=== PATIENT | female | born 1945 | race Caucasian/White ===

== ENCOUNTER 2025-06-28 09:31 | Inpatient (IN) ==
--- NOTE | 2025-06-25 11:51 | Anesthesiology Consultation ---
Date of Service June 25, 2025 Assessment & Plan (1) Encounter for pre-operative examination: - medical clearance 06/25/25: "...low risk...cleared for scheduled surgery..." - Per traffic manager on 06/21/25: No known infectious disease contacts, current infectious disease symptoms in past 10 days or COVID positive test result in the past 30 days. Chart Review Chart Review: Acceptable Risk for Surgery and Patient NOT seen in Pre Admission Testing History Surgery Operation Date: 06/28/25 10:40 Proposed Procedures p L3-S1 Decompression and Fusion - Del Abernathy DO Height/Weight Height: 5 ft 4 in Weight: 65.317 kg Allergies Allergy/AdvReac Type Severity Reaction Status Date / Time No Known Allergies Allergy Verified 06/21/25 10:40 Medications Home Medications Medication Instructions Recorded Confirmed Last Taken acetaminophen 500 mg capsule 500 mg PO BID 06/21/25 06/21/25 Unknown amlodipine 10 mg tablet 10 mg PO HS 06/21/25 06/21/25 Unknown aspirin 81 mg capsule 81 mg PO UD 06/21/25 06/21/25 Unknown baclofen 20 mg tablet 20 mg PO TID PRN Pain 06/21/25 06/21/25 Unknown celecoxib 100 mg capsule (Celebrex) 100 mg PO HS 06/21/25 06/21/25 Unknown cholecalciferol (vitamin D3) 125 125 mcg PO BID 06/21/25 06/21/25 Unknown mcg (5,000 unit) tablet (Vitamin D3) dicyclomine 10 mg capsule 10 mg PO BID PRN Abdominal 06/21/25 06/21/25 Unknown Discomfort gabapentin 100 mg tablet 100 mg PO HS 06/21/25 06/21/25 Unknown ibuprofen 800 mg tablet 800 mg PO Q8H PRN Pain 06/21/25 06/21/25 Unknown naproxen 375 mg tablet 375 mg PO BID PRN Pain 06/21/25 06/21/25 Unknown omeprazole 20 mg tablet,delayed 20 mg PO QAM 06/21/25 06/21/25 Unknown release prednisone 10 mg tablet 10 mg PO DAILY PRN Pain 06/21/25 06/21/25 Unknown zolpidem 5 mg tablet 10 mg PO HS PRN sleep 06/21/25 06/21/25 Unknown Past Medical History Medical History (Updated 06/25/25 @ 11:48 by Marie Fiore PA-C) Acid reflux well controlled Cystocele with prolapse mild prolapse History of postoperative nausea and vomiting HTN (hypertension) IBS (irritable bowel syndrome) w/ diarrhea Low back pain Neuropathy bilat feet /legs Slow to wake up after anesthesia Urinary incontinence Past Surgical History Surgical History History of carpal tunnel release of both wrists History of foot surgery right - tarsal tunnel Hx of bilateral cataract extraction Hx of colonoscopy Hx of hysterectomy Hx of parathyroidectomy removal of adenoma Social History Smoking Status: Never smoker Do You Dip or Chew Tobacco: No Hx Alcohol Use: No Hx Substance Use: No substance use type: does not use Lab Results Anesthesia Preop Results Results Anesthesia Widget: WBC 9.67 K/ul (4.8-10.8) 06/12/25 Hgb 13.4 g/dl (12.0-16.0) 06/12/25 Hct 39.0 % (37.0-47.0) 06/12/25 Plt 270 K/uL (130-400) 06/12/25 Na 141 mmol/L (136-145) 06/12/25 K 3.3 mmol/L (3.5-5.1) L 06/12/25 Cl 109 mmol/L (98-107) H 06/12/25 CO2 25 mmol/L (21-32) 06/12/25 BUN 19 mg/dl (6-23) 06/12/25 Creat 0.89 mg/dl (0.6-1.2) 06/12/25 Glucose Level 69 mg/dl (70-99(Fasting)) L 06/12/25 PT 10.6 Seconds (9.0-12.0) 06/12/25 PTT 26 Seconds (21-31) 06/12/25 INR 1.0 (0.9-1.1) 06/12/25 Urine Color Yellow 06/12/25 Urine Appearance Clear (Clear) 06/12/25 Urine pH 5.5 (4.5-7.5) 06/12/25 Urine Specific [place] 1.029 (1.000-1.030) 06/12/25 Urine Protein Trace (Negative) H 06/12/25 Urine Glucose (UA) Negative (Negative) 06/12/25 Urine Ketones Negative (Negative) 06/12/25 Urine Blood Negative (Negative) 06/12/25 Urine Nitrite Negative (Negative) 06/12/25 Urine Bilirubin Negative (Negative) 06/12/25 Urine Urobilinogen Negative (Negative) 06/12/25 Urine Leukocyte Esterase Negative (Negative) 06/12/25 Urine WBC (Auto) 0-5 /hpf (0-5) 06/12/25 Urine RBC (Auto) 0-2 /hpf (0-2) 06/12/25 Urine Hyaline Casts (Auto) 0-2 /lpf (0-2) 06/12/25 Urine Epithelial Cells (Auto) 6-10 /hpf (0-2) H 06/12/25 Urine Bacteria (Auto) None Seen (None Seen) 06/12/25 Blood Type A Positive 06/12/25 Antibody Screen NEGATIVE 06/12/25 Testing Electrocardiogram Date: 06/12/25 NSR, rate 88 bpm Chest X-Ray Date: 06/12/25 No acute findings.
[2025-06-28] MEDS ORDERED: SUGAMMADEX SODIUM 200 MG/2 ML VIAL IV ONE (10:05)
[2025-06-28] MEDS ORDERED: MIDAZOLAM HCL 1 MG/ML 2ML VIAL ONE (10:05)
[2025-06-28] MEDS ORDERED: PROPOFOL IV EMULSION 10 MG/ML 20 ML VIAL IV ONE (10:05)
[2025-06-28] MEDS ORDERED: DEXAMETHASONE SOD INJ 4 MG/ML VIAL ONE (10:05)
[2025-06-28] MEDS ORDERED: LIDOCAINE 2% 2 ML VIAL/AMP(20MG/ML) INFIL ONE (10:05)
[2025-06-28] MEDS ORDERED: ONDANSETRON INJ 2 MG/ML 2 ML VIAL ONE (10:05)
[2025-06-28] MEDS ORDERED: ROCURONIUM BROMIDE 10 MG/ML 5 ML VIAL IV ONE ×2 (10:05→12:19)
[2025-06-28] MEDS: LR 60ML/HR IV SCH (10:35)
--- NOTE | 2025-06-28 10:46 | History & Physical Bridge Note ---
Date of Service June 28, 2025 History & Physical Bridge Note I have examined the patient, reviewed the History & Physical and in the interval since the performance of the History & Physical I have noted the following changes of clinical significance: no changes noted
--- NOTE | 2025-06-28 10:46 | History & Physical Report ---
Date of Service June 28, 2025 Assessment & Plan (1) Multilevel lumbosacral spondylosis with radiculopathy: Plan: Decompression and fusion L3-L4, L4-L5 L5-S1 History of Present Illness Chief Complaint: Back and leg pain Primary Care Provider: Lenny Albert This is a 80-year-old female presents chronic persistent back and leg pain after failing course of nonoperative care she is here for surgical invention. Allergies Allergy/AdvReac Type Severity Reaction Status Date / Time No Known Allergies Allergy Verified 06/28/25 09:57 Home Medications Medication Instructions Recorded Confirmed Type acetaminophen 500 mg capsule 1,000 mg PO TID 06/21/25 06/28/25 History amlodipine 10 mg tablet 10 mg PO HS 06/21/25 06/28/25 History aspirin 81 mg capsule 81 mg PO UD 06/21/25 06/28/25 History baclofen 20 mg tablet 5 mg PO BID PRN Pain 06/21/25 06/28/25 History celecoxib 100 mg capsule (Celebrex) 100 mg PO HS 06/21/25 06/28/25 History cholecalciferol (vitamin D3) 125 125 mcg PO BID 06/21/25 06/28/25 History mcg (5,000 unit) tablet (Vitamin D3) dicyclomine 10 mg capsule 10 mg PO BID PRN Abdominal 06/21/25 06/28/25 History Discomfort gabapentin 100 mg tablet 100 mg PO HS 06/21/25 06/28/25 History ibuprofen 800 mg tablet 800 mg PO Q8H PRN Pain 06/21/25 06/28/25 History naproxen 375 mg tablet 375 mg PO BID PRN Pain 06/21/25 06/28/25 History omeprazole 20 mg tablet,delayed 20 mg PO QAM 06/21/25 06/28/25 History release prednisone 10 mg tablet 10 mg PO DAILY PRN Pain 06/21/25 06/28/25 History zolpidem 5 mg tablet (Ambien) 10 mg PO HS PRN sleep 06/21/25 06/28/25 History Past Med/Surg History Problem List (Updated 06/28/25 @ 10:46 by Del Abernathy DO) Multilevel lumbosacral spondylosis with radiculopathy Encounter for pre-operative examination Medical History Acid reflux well controlled Cystocele with prolapse mild prolapse History of postoperative nausea and vomiting HTN (hypertension) IBS (irritable bowel syndrome) w/ diarrhea Low back pain Neuropathy bilat feet /legs Slow to wake up after anesthesia Urinary incontinence Surgical History History of carpal tunnel release of both wrists History of foot surgery right - tarsal tunnel Hx of bilateral cataract extraction Hx of colonoscopy Hx of hysterectomy Hx of parathyroidectomy removal of adenoma Social History Smoking Status: Never smoker Second Hand Exposure: Yes (hx); Do You Dip or Chew Tobacco: No; Tobacco Cessation Education Requested by Patient: No Hx Alcohol Use: No Hx Substance Use: No Preferred Language: Citizen Of [place] Communication Ability: Effective Communications Tower Climber Required: No Beliefs That Will Affect Care: None Current Living Situation: Spouse Other Information That Helps Us Care for You: No Feels Safe at Home: Yes Safety Concerns: Feels Safe At This Time Assistive Devices: Denture - Lower and Glasses Assistive Devices Comment: lower partial, reading glasses Physical Exam Physical Exam: Patient is alert and oriented Heart regular rhythm Lungs clear Results & Data Results & Data Vital Signs (Past 12 Hours) Vital Signs Temp Pulse Resp BP Pulse Ox O2 Del Method 06/28/25 10:10 36.9 C 96 H 20 172/88 H 100 Room Air
[2025-06-28] MEDS: LR 15ML/HR IV SCH (10:54)
[2025-06-28] MEDS: ACETAMINOPHEN 500 MG TAB PO SCH (10:55)
[2025-06-28] MEDS: GABAPENTIN 300 MG CAP PO SCH (10:57)
[2025-06-28] MEDS: CeleBREX 200 MG CAP PO SCH (10:58)
[2025-06-28] MEDS: BUPIVACAINE/EPINEPHRINE 0.25% 1:200,000 30 ML VIAL ONE (11:46)
[2025-06-28] MEDS: ceFAZolin 330 MG/ML 1 GM VIAL ONE (13:44)
[2025-06-28] MEDS: FLOSEAL HEMOSTATIC MATRIX 10ML TOP ONE (13:44)
--- NOTE | 2025-06-28 14:07 | Operative Report ---
Post Operative Report Pre & Post Diagnosis Operation Date: 06/28/25 10:40 Pre-Op Diagnosis: #1 spondylolisthesis with radiculopathy #2 multilevel lumbar spondylosis #3 lumbar spinal stenosis Postop Diagnosis: Same I identified the patient and participated in the time-out.: Yes Procedure Operation Date: 06/28/25 10:40 Actual Procedures #1 lumbar decompression with bilateral medial facetectomies and foraminotomies L2-L3, L3-L4, L4-L5 and L5-S1. #2 posterior spinal fusion L3-S1. #3 placed to posterior segmental instrumentation L3-S1 using Emery. #4 interbody fusion L3- L4, L4-L5 and L5-S1. #5 placement of Spira 12 x 26 mm at L3-L4 and 13 x 26 mm at L4-L5 and 11 x 26 mm x 2 at L5-S1. #6 placement locally harvested morselized autograft posterior gutters. #7 placement of Proteus combined with Koros in the posterior lateral gutters and os design interbody space. #8 application of versa wrap of the exposed dura. Surgeon Del Abernathy, DO Brewmaster Amado Gómez Estimated Blood Loss 350 Findings Consistent with Post-Op Diagnosis Specimens None Indications This is a 80-year-old female who presents manage diagnosis with failed listed nonoperative care is here for surgical invention. Description of Procedure Patient was met with identified informed consent obtained. Patient was then taken to the operative suite underwent a patient placed in a prone position on Kai table atop the Tanmay frame. All bony prominences well-padded eyes inspected to ensure no external pressure placed upon them. This point the lumbar spine was prepped and draped in normal sterile fashion. Sharp dissection with the assistance of Bovie cautery from down to and exposing the lamina transverse processes of L3-L4-L5 and the sacral ala bilaterally. From a [place] 5 fashion complete laminectomy of L5 was performed including bilateral medial facetectomies and foraminotomies followed by complete laminectomy of L4 with bilateral medial facetectomies and foraminotomies. Followed by complete laminectomy of L3 with bilateral medial facetectomies and foraminotomies and lastly partial laminectomy of L2 with bilateral medial facetectomies to address all subarticular stenosis. Pedicle screws were then placed in l 3 L4-L5 and S1 levels bilaterally with assistance of fluoroscopy and the appropriately sized rods placed. Bilateral transforaminal approach on the right discectomy of L5-S1 was performed endplates. To subcortical bleeding bone and a 11 x 26 mm Spira ca ge tapped into position. He then proceeded to the left transforaminal region at L4-5 S1. Again discectomy performed. Endplates guided to subcortical bone bone and a second 11 x 26 mm Spira cage tapped into position. Then proceeded to L4- L5 level. By way the transfer approach on the left complete discectomy was performed. Endplates guided to subcortical bleeding bone and a 13 x 26 mm Spira cage tapped into position. Then proceeded to L3-L4 and by way of transforaminal approach on the left a complete discectomy was performed. Endplates guided to subcortically bone and a 12 x 26 mm Spira cage tapped in position. Please note all cages were packed with os design bone graft. Rods were then compressed locked into final position bilaterally. Cross-link was locked in position. Versa wrap placed to exposed dura. The transverse processes of L3 L4-5 and the sacral ala burred to subcortical bleeding bone. Proteus combined with Koros and locally harvested morselized or graft placed in posterolateral gutters. 15 round LANG drain inserted. The incision was then closed with 1 Vicryl the fascia 2-0 Vicryl subcutaneously and 4-0 Monocryl for final skin closure. Steri-Strips sterile dressing placed. Patient waken taken to PACU in stable condition. Please note Amado Ruffin was present at the entire procedure about the patient positioning complex portion of the surgery and final skin closure. I attest to the content of the Intraoperative Record and any orders documented therein. Any exceptions are noted below.
--- NOTE | 2025-06-28 14:25 | Fluoroscopy Report ---
FL lumbar spine 2-3V CLINICAL HISTORY: L3-S1 DECOMPRESSION AND FUSION COMPARISON STUDY: None pertinent FLUOROSCOPY TIME: 27 seconds FLUOROSCOPY IMAGES: 10 EXPOSURE DOSE: 20.95 mGy FINDINGS: Fluoroscopic guidance was provided for multilevel lumbar spine laminectomy and fusion. IMPRESSION: Please refer to the procedure report for evaluation based upon real-time fluoroscopic obs ervation. ACT 112: Negative or not required by law. Electronically signed by: Holly Kumar M.D. 06/28/2025 2:24 PM
[2025-06-28] MEDS ORDERED: DEXAMETHASONE SOD INJ 4 MG/ML VIAL IV PRN (14:31)
[2025-06-28] MEDS ORDERED: LABETALOL HCL IV 5 MG/ML 20ML IV PRN (14:31)
[2025-06-28] MEDS ORDERED: ATROPINE SULFATE 0.1 MG/ML 10ML SYR IV PRN (14:31)
[2025-06-28] MEDS: ONDANSETRON INJ 2 MG/ML 2 ML VIAL IV PRN (14:53)
[2025-06-28] MEDS: HYDROmorphone INJ 2 MG/ML SYR/VIAL IV PRN (14:56)
--- NOTE | 2025-06-28 14:57 | Anesthesiology Progress Note ---
Date of Service June 28, 2025 Anesthesia Post Procedure Vital Signs Vital Signs: Temp Pulse Pulse Resp BP Pulse Ox O2 Del Method 06/28/25 14:45 75 12 134/87 100 Room Air 06/28/25 14:35 74 14 129/68 99 Room Air 06/28/25 14:25 74 15 132/57 L 97 Room Air 06/28/25 14:16 36.0 C L 77 15 115/58 L 100 Room Air 06/28/25 10:10 36.9 C 96 H 20 172/88 H 100 Room Air Pain Intensity Lower Back: Pain Intensity: 5 Left Shoulder: Pain Intensity: 5 Transfer of Care Handoff Completed per policy Notes Mental Status: alert / awake / arousable and participated in evaluation Patient Amnestic to Procedure: Yes Nausea / Vomiting: adequately controlled Pain: adequately controlled Airway Patency, RR, SpO2: stable & adequate BP & HR: stable & adequate Hydration State: stable & adequate Anesthetic Complications: no major complications apparent and Pt Satisfied with anesthetic care
[2025-06-28] MEDS ORDERED: DICYCLOMINE HCL 10 MG CAP PO PRN (16:43)
[2025-06-28] MEDS ORDERED: ONDANSETRON INJ 2 MG/ML 2 ML VIAL IV PRN (16:43)
[2025-06-28] MEDS ORDERED: ALUMINUM/MAGNESIUM SUSP 30 ML UDC PO PRN (16:43)
[2025-06-28] MEDS ORDERED: HYDROmorphone INJ 1 MG/ML SYRINGE IV PRN (16:43)
[2025-06-28] MEDS ORDERED: FAMOTIDINE 20 MG TAB PO PRN (16:43)
[2025-06-28] MEDS ORDERED: MAGNESIUM HYDROXIDE SUSP 30 ML UDC PO PRN (16:43)
[2025-06-28] MEDS ORDERED: SOD PHOSPHATE/SOD BIPHOSPHATE ENEMA 132 ML BTL PR PRN (16:43)
[2025-06-28] MEDS ORDERED: HYDROmorphone INJ 0.5 MG/0.5 ML SYR IV PRN (16:43)
[2025-06-28] MEDS ORDERED: ONDANSETRON 4 MG OD TAB PO PRN (16:43)
[2025-06-28] MEDS ORDERED: ACETAMINOPHEN 1,000 MG/100 ML VIAL IV PRN (16:43)
[2025-06-28] MEDS ORDERED: METOCLOPRAMIDE HCL INJ 5 MG/ML 2 ML VIAL IV PRN (16:43)
[2025-06-28] MEDS ORDERED: DO NOT ADMINISTER PNEUMOCOCCAL VACCINE PRN (16:43)
[2025-06-28] MEDS ORDERED: ZOLPIDEM TARTRATE 5 MG TAB PO PRN (16:43)
[2025-06-28] MEDS ORDERED: PROMETHAZINE 12.5 MG/50.5 ML BAG IV PRN (16:43)
[2025-06-28] MEDS ORDERED: diphenhydrAMINE Capsule 25 MG CAP PO PRN (16:43)
[2025-06-28] MEDS ORDERED: NALOXONE HCL 0.4 MG/1 ML VIAL/CARP IV PRN (16:43)
[2025-06-28] MEDS ORDERED: DO NOT ADMINISTER FLU VACCINE PRN (16:43)
--- NOTE | 2025-06-28 17:47 | Consultation ---
Date of Consultation June 28, 2025 Assessment & Plan (1) Multilevel lumbosacral spondylosis with radiculopathy: Patient is a 80 year old F with a past medical history of HTN, IBS, urinary incontinence 2/2 cystocele with prolapse presenting with post-operative medical/surgical management following back surgery for spondylolisthesis with radiculopathy. Patient reports she's had bilateral foot numbness x 2 years and had right - tarsal tunnel surgery in January of this year for perceived foot problem. Failed outpatient conservative management. Multilevel lumbosacral spondylosis with radiculopathy * POD#0 s/p lumbar decompression with bilateral medial facetectomies and esther inotomies L2-S1; posterior spinal fusion L3-S1; posterior segmental instrumentation L3-S1; interbody fusion L3-S1 with Dr. Abernathy * EBL: 350 ml * Pre-op Hgb 13.4 (06/12)-> Monitor H&H with AM labs * Cefazolin x 9 doses as per Ortho ordered- transition to po antibiotics at d/c * NV checks Q4H * Per ortho for pain control- Acetaminophen, Oxy, Hydromorphone as needed * Bowel regimen with Miralax * Maintain LANG drain * Wound care per Ortho * SCD's for anticoagulation * Encourage incentive spirometry Q1H while awake * Maintain guan and d/c when able * PT/OT when appropriate- ordered #Hypertension * Continue home BP meds- amlodipine HS * Trend BP's per unit protocol DVT Ppx: Scd's Code status: Full PCP: Dr. Lenny Albert Dispo: Admit for post-op management Patient seen in collaboration with Dr. Lau. Please see addendum.I spent a total of 35 minutes coordinating, documenting and providing care for this patient excluding time spent in the performance of separately billed services or time spent by another provider/QHP. (2) Encounter for pre-operative examination: (3) HTN (hypertension): Supervising Physician Co-Signing Physician Notes Patient was seen and examined at bedside, hemodynamically stable, was somewhat nauseous, RN was getting Zofran for her. Total time spent independently: 9 minutes I have seen and examined the patient and have discussed the case with the provider above. I agree with the assessment and plan as stated. History of Present Illness Attending Physician: Del Abernathy, DO History of Present Illness Patient is a 80 year old F with a past medical history of HTN, IBS, urinary incontinence 2/2 cystocele with prolapse presenting with post-operative medical/surgical management following back surgery for spondylolisthesis with radiculopathy. Patient reports she's had bilateral foot numbness x 2 years and had right - tarsal tunnel surgery in January of this year for perceived foot problem. Failed outpatient conservative management. Denies fever, chills, weight loss, weakness, headache, cognitive changes, vision/hearing changes, chest pain, SOB, swelling, difficulty breathing, urinary concerns, pelvis numbness, skin changes. History obtained primarily from the patient and via hospitalization record. External chart review obtained from [facility] for medication rec and past medical concerns. Allergies Allergy/AdvReac Type Severity Reaction Status Date / Time No Known Allergies Allergy Verified 06/28/25 09:57 Home Medications Medication Instructions Recorded Confirmed Type acetaminophen 500 mg capsule 1,000 mg PO TID 06/21/25 06/28/25 History amlodipine 10 mg tablet 10 mg PO HS 06/21/25 06/28/25 History aspirin 81 mg capsule 81 mg PO UD 06/21/25 06/28/25 History baclofen 20 mg tablet 5 mg PO BID PRN Pain 06/21/25 06/28/25 History celecoxib 100 mg capsule (Celebrex) 100 mg PO HS 06/21/25 06/28/25 History cholecalciferol (vitamin D3) 125 125 mcg PO BID 06/21/25 06/28/25 History mcg (5,000 unit) tablet (Vitamin D3) dicyclomine 10 mg capsule 10 mg PO BID PRN Abdominal 06/21/25 06/28/25 History Discomfort gabapentin 100 mg tablet 100 mg PO HS 06/21/25 06/28/25 History ibuprofen 800 mg tablet 800 mg PO Q8H PRN Pain 06/21/25 06/28/25 History naproxen 375 mg tablet 375 mg PO BID PRN Pain 06/21/25 06/28/25 History omeprazole 20 mg tablet,delayed 20 mg PO QAM 06/21/25 06/28/25 History release prednisone 10 mg tablet 10 mg PO DAILY PRN Pain 06/21/25 06/28/25 History zolpidem 5 mg tablet (Ambien) 10 mg PO HS PRN sleep 06/21/25 06/28/25 History Patient History Medical History Acid reflux well controlled Neuropathy bilat feet /legs History of postoperative nausea and vomiting Slow to wake up after anesthesia Cystocele with prolapse mild prolapse Urinary incontinence IBS (irritable bowel syndrome) w/ diarrhea Low back pain HTN (hypertension) Surgical History Hx of bilateral cataract extraction Hx of colonoscopy History of foot surgery right - tarsal tunnel History of carpal tunnel release of both wrists Hx of parathyroidectomy removal of adenoma Hx of hysterectomy Social History Smoking Status: Never smoker Second Hand Exposure: Yes (hx); Do You Dip or Chew Tobacco: No; Tobacco Cessation Education Requested by Patient: No Hx Alcohol Use: No Hx Substance Use: No Preferred Language: [place] Communication Ability: Effective Policy And Planning Manager Required: No Beliefs That Will Affect Care: None Current Living Situation: Spouse Other Information That Helps Us Care for You: No Feels Safe at Home: Yes Safety Concerns: Feels Safe At This Time Assistive Devices: Denture - Lower and Glasses Assistive Devices Comment: lower partial, reading glasses Review of Systems Review of Systems: All systems reviewed & are unremarkable except as noted in HPI & below Physical Exam Physical Exam: VITALS: Reviewed. WEIGHT/BMI reviewed. GEN: Healthy appearing, well-developed, NAD. PSYCH: Good Judgment. AOx3. Normal memory, mood, and affect. HEENT -Head: NC/AT; -Eyes: PERRL, EOMI. No discharge or redn ess; -Ears: External ears are normal. -Nose: Normal nares. -Mouth and throat: MMM. Normal gums, muc lauryn, palate,. Good dentition. NECK: Supple, with no masses. CV: RRR, no m/r/g. LUNGS: CTAB, no w/r/c. On supplemental O2, sats stable. ABD: Soft, NT/ND, NBS, no masses or organomegaly. : Clear, yellow urine via guan SKIN: Warm, well perfused. Multiple BUE bruises MSK: No deformities, Normal gait. EXT: No clubbing, cyanosis, or edema. NEURO: CN II-XII grossly intact. No focal deficits. Sensation and motion intact BLE. Results & Data Vital Signs (Past 12 Hours) Vital Signs Temp Pulse Pulse Resp BP Pulse Ox O2 Del Method 06/28/25 16:59 36.6 C 78 16 119/69 95 Nasal Cannula 06/28/25 16:15 83 14 126/57 L 98 Nasal Cannula 06/28/25 16:00 75 13 135/52 L 96 Nasal Cannula 06/28/25 15:45 85 14 132/45 L 98 Nasal Cannula 06/28/25 15:30 81 14 128/54 L 99 Nasal Cannula 06/28/25 15:15 36.3 C L 85 13 142/60 H 98 Nasal Cannula 06/28/25 15:05 89 24 126/52 L 100 Nasal Cannula 06/28/25 14:55 75 19 136/51 L 99 Nasal Cannula 06/28/25 14:45 75 12 134/87 100 Room Air 06/28/25 14:35 74 14 129/68 99 Room Air 06/28/25 14:25 74 15 132/57 L 97 Room Air 06/28/25 14:16 36.0 C L 77 15 115/58 L 100 Room Air 06/28/25 10:10 36.9 C 96 H 20 172/88 H 100 Room Air O2 Flow Rate 06/28/25 16:59 06/28/25 16:15 2 06/28/25 16:00 2 06/28/25 15:45 2 06/28/25 15:30 2 06/28/25 15:15 2 06/28/25 15:05 2 06/28/25 14:55 2 06/28/25 14:45 06/28/25 14:35 06/28/25 14:25 06/28/25 14:16 06/28/25 10:10 Diagnostic Findings Lumbar Spine X-Ray 06/28/25 10:40 FL lumbar spine 2-3V CLINICAL HISTORY: L3-S1 DECOMPRESSION AND FUSION COMPARISON STUDY: None pertinent FLUOROSCOPY TIME: 27 seconds FLUOROSCOPY IMAGES: 10 EXPOSURE DOSE: 20.95 mGy FINDINGS: Fluoroscopic guidance was provided for multilevel lumbar spine laminectomy and fusion. IMPRESSION: Please refer to the procedure report for evaluation based upon real- time fluoroscopic observation. ACT 112: Negative or not required by law. Electronically signed by: Holly Kumar M.D. 06/28/2025 2:24 PM
[2025-06-28] MEDS: LACTATED RINGER'S 1,000 ML IV SCH (18:14)
[2025-06-28] MEDS: CHOLECALCIFEROL 125 MCG (5,000 UNITS) TAB PO SCH (20:22)
[2025-06-28] MEDS: GABAPENTIN 100 MG CAP PO SCH (21:40)
[2025-06-28] MEDS: DOCUSATE SODIUM/SENNA 50/8.6MG TAB PO SCH (21:40)
[2025-06-29] MEDS: POLYETHYLENE (MIRALAX) 17 GM PACK PO SCH (05:14)
[2025-06-29] MEDS: ACETAMINOPHEN 500 MG TAB PO PRN (05:30)
[2025-06-29 06:17] LABS: Hematocrit (blood only) 30.5 % (37.0-47.0); Hemoglobin 10.5 g/dl (12.0-16.0); Immature Granulocytes # (auto) 0.06 K/uL (0.01-0.20); Immature Granulocytes % (auto) 0.5 %; Mean Corpuscular Hemoglobin 31.6 pg (25.0-34.0); Mean Corpuscular Volume 91.9 fL (80.0-100.0); Platelet Count 244 K/uL (130-400); RDW Standard Deviation 42.4 fL (36.4-46.3); Red Blood Count 3.32 M/uL (4.20-5.40); White Blood Count 13.08 K/ul (4.8-10.8)
[2025-06-29 06:37] LABS: Anion Gap 6.0 (3-11); Blood Urea Nitrogen 15.0 mg/dl (6-23); Calcium 9.0 mg/dl (8.6-10.3); Carbon Dioxide 27.0 mmol/L (21-32); Chloride 107.0 mmol/L (98-107); Creatinine Clr Calc Pharmacy 47.1 ml/min; Glucose 114.0 mg/dl (70-99(Fasting)); Potassium 3.7 mmol/L (3.5-5.1); Sodium 140.0 mmol/L (136-145)
[2025-06-29] MEDS: ASPIRIN 81 MG ECTAB PO SCH (08:03)
[2025-06-29] MEDS: dexAMETHasone 6 MG in SYRINGE 0 ML IV SCH (08:04)
--- NOTE | 2025-06-29 08:24 | Orthopedic Progress Note ---
Date of Service June 29, 2025 Assessment & Plan (1) Multilevel lumbosacral spondylosis with radiculopathy: Plan: At this time we will continue physical therapy monitor LANG output will be discharged home in the next few days. Admission and Anticipated Discharge Date Admission Date: June 28, 2025 Subjective Patient's back pain is controlled leg symptoms improved Physical Exam Physical Exam: Patient is currently in bed. LANG drain is functioning. She has a good strength testing. Results & Data Vital Signs (Past 12 Hours) Vital Signs Temp Pulse Resp BP BP Pulse Ox O2 Del Method 06/29/25 07:11 36.4 C L 78 20 103/61 92 Room Air 06/29/25 04:14 36.3 C L 79 16 114/67 97 Room Air 06/29/25 00:10 36.7 C 75 16 112/64 98 Room Air
--- NOTE | 2025-06-29 10:51 | Hospitalist Progress Note ---
<Statement entered by Parish Rodriguez, DO - 06/30/25 07:21> I was available to AMELIE D/w AMELIE Date of Service June 29, 2025 Assessment & Plan (1) Multilevel lumbosacral spondylosis with radiculopathy: (2) Encounter for pre-operative examination: (3) HTN (hypertension): Plan Patient is a 80 year old F with a past medical history of HTN, IBS, urinary incontinence 2/2 cystocele with prolapse presenting with post-operative medical/surgical management following back surgery for spondylolisthesis with radiculopathy. Multilevel lumbosacral spondylosis with radiculopathy POD#1 s/p lumbar decompression with bilateral medial facetectomies and foraminotomies L2-S1; posterior spinal fusion L3-S1; posterior segmental instrumentation L3-S1; interbody fusion L3-S1 with Dr. Abernathy Per ortho for pain control, wound care, anticoagulation and activities WBC 13.08 today, in setting of IV Decadron. No suspicion for infection Post op blood loss anemia Hgb 10.5 today (pre-op hgb 13.4, EBL 350ml) Asymptomatic, no indication for transfusion Monitor with daily CBC while admitted Hypertension Continue home amlodipine HS DVT Ppx: SCDs Code status: Full PCP: Dr. Lenny Albert Dispo: Admitted to med/surg, dispo per primary service. Thank you for this consultation. We will follow the patient with you during their hospital stay. You can [facility] a [facility] via [employer]. Care coordinated with Dr. Rodriguez. I spent a total of 45 minutes coordinating, documenting, and providing care for this patient excluding time spent in the performance of separately billed services or time spent by another provider/QHP. Admission and Anticipated Discharge Date Admission Date: June 28, 2025 Subjective Seen and examined in 309 in follow-up of lumbar decompression surgery. Patient sitting in bedside chair chatting with her . States she was nauseous overnight and had emesis x 1 with immediate relief afterwards. Has had some nausea in setting of general anesthesia in the past. Back pain is minimal at surgical site. Still with chronic paresthesias in lower extremity, unchanged from previous. No postop flatus yet. No fever, chills, chest pain, shortness of breath, nausea, vomiting, abdominal pain, dysuria. Review of Systems Review of Systems: At least ten systems reviewed and negative except as noted in the HPI. Physical Exam Physical Exam: Gen: WD/WN, NAD, sitting in bedside chair, A&Ox3 HEENT: Normocephalic, atraumatic Lung: Clear to Auscultation bilaterally Heart: Regular rate, regular rhythm Abdomen: Soft, NT, ND Extremities: + Spinal dressing c/d/i, LANG drain visualized, no edema Skin: Warm, no rash Results & Data Results & Data Vital Signs (Past 12 Hours) Vital Signs Temp Pulse Resp BP BP Pulse Ox O2 Del Method 06/29/25 07:11 36.4 C L 78 20 103/61 92 Room Air 06/29/25 04:14 36.3 C L 79 16 114/67 97 Room Air 06/29/25 00:10 36.7 C 75 16 112/64 98 Room Air Laboratory Results Short CBC 06/29/25 Range/Units 05:48 WBC 13.08 H (4.8-10.8) K/ul Hgb 10.5 L (12.0-16.0) g/dl Hct 30.5 L (37.0-47.0) % Plt Count 244 (130-400) K/uL BMP 06/29/25 05:48 Sodium 140 Potassium 3.7 Chloride 107 Carbon Dioxide 27 BUN 15 Creatinine 0.91 Glucose 114 H Calcium 9.0 Diagnostic Findings Lumbar Spine X-Ray 06/28/25 10:40 FL lumbar spine 2-3V CLINICAL HISTORY: L3-S1 DECOMPRESSION AND FUSION COMPARISON STUDY: None pertinent FLUOROSCOPY TIME: 27 seconds FLUOROSCOPY IMAGES: 10 EXPOSURE DOSE: 20.95 mGy FINDINGS: Fluoroscopic guidance was provided for multilevel lumbar spine laminectomy and fusion. IMPRESSION: Please refer to the procedure report for evaluation based upon real-time fluoroscopic observation. ACT 112: Negative or not required by law. Electronically signed by: Holly Kumar M.D. 06/28/2025 2:24 PM
[2025-06-30 06:26] LABS: Hematocrit (blood only) 28.1 % (37.0-47.0); Hemoglobin 9.6 g/dl (12.0-16.0); Mean Corpuscular Hemoglobin 31.8 pg (25.0-34.0); Mean Corpuscular Volume 93.0 fL (80.0-100.0); Platelet Count 163 K/uL (130-400); RDW Standard Deviation 44.3 fL (36.4-46.3); Red Blood Count 3.02 M/uL (4.20-5.40); White Blood Count 12.47 K/ul (4.8-10.8)
[2025-06-30 06:50] LABS: Anion Gap 7.0 (3-11); Blood Urea Nitrogen 20.0 mg/dl (6-23); Calcium 9.0 mg/dl (8.6-10.3); Carbon Dioxide 27.0 mmol/L (21-32); Chloride 108.0 mmol/L (98-107); Creatinine Clr Calc Pharmacy 53.5 ml/min; Glucose 97.0 mg/dl (70-99(Fasting)); Potassium 3.5 mmol/L (3.5-5.1); Sodium 142.0 mmol/L (136-145)
--- NOTE | 2025-06-30 07:46 | Hospitalist Progress Note ---
<Statement entered by Parish Rodriguez, DO - 06/30/25 13:50> I was available to AMELIE Discussed plan with AMELIE Date of Service June 30, 2025 Assessment & Plan (1) Multilevel lumbosacral spondylosis with radiculopathy: (2) Encounter for pre-operative examination: (3) HTN (hypertension): Plan Patient is a 80 year old F with a past medical history of HTN, IBS, urinary incontinence 2/2 cystocele with prolapse presenting with post-operative medical/surgical management following back surgery for spondylolisthesis with radiculopathy. Multilevel lumbosacral spondylosis with radiculopathy POD#2 s/p lumbar decompression with bilateral medial facetectomies and foraminotomies L2-S1; posterior spinal fusion L3-S1; posterior segmental instrumentation L3-S1; interbody fusion L3-S1 with Dr. Abernathy Per ortho for pain control, wound care, anticoagulation and activities WBC 13.08 -> 12.4, in setting of IV Decadron. No suspicion for infection Post op blood loss anemia Hgb 9.6 today, (pre-op hgb 13.4, EBL 350ml) Asymptomatic, no indication for transfusion Monitor with daily CBC while admitted Hypertension Continue home amlodipine HS DVT Ppx: SCDs Code status: Full PCP: Dr. Lenny Albert Dispo: Admitted to med/surg, dispo per primary service. Thank you for this consultation. We will follow the patient with you during their hospital stay. You can reach a member of the [facility]ist Team 16/05 via [employer]. Care coordinated with Dr. Rodriguez. I spent a total of 30 minutes coordinating, documenting, and providing care for this patient excluding time spent in the performance of separately billed services or time spent by another provider/QHP. Admission and Anticipated Discharge Date Admission Date: June 28, 2025 Subjective Seen and examined in 309-1. More discomfort today but has improved since getting out of bed into chair. Passing flatus. No F/C, CP, SOB, abd pain, dysuria. Review of Systems Review of Systems: At least ten systems reviewed and negative except as noted in the HPI. Physical Exam Physical Exam: Gen: WD/WN, NAD, sitting in bedside chair, A&Ox3 HEENT: Normocephalic, atraumatic Lung: Clear to Auscultation bilaterally Heart: Regular rate, regular rhythm Abdomen: Soft, NT, ND Extremities: + Spinal dressing c/d/i, LANG drain visualized, no edema Skin: Warm, no rash Results & Data Results & Data Vital Signs (Past 12 Hours) Vital Signs Temp Pulse Pulse Resp BP BP Pulse Ox 06/30/25 07:30 36.4 C L 77 18 111/63 97 06/30/25 00:25 36.5 C 73 20 130/72 96 06/29/25 21:11 88 16 136/71 95 O2 Del Method 06/30/25 07:30 Room Air 06/30/25 00:25 Room Air 06/29/25 21:11 Room Air Laboratory Results Short CBC 06/30/25 Range/Units 05:43 WBC 12.47 H (4.8-10.8) K/ul Hgb 9.6 L (12.0-16.0) g/dl Hct 28.1 L (37.0-47.0) % Plt Count 163 (130-400) K/uL BMP 06/30/25 05:43 Sodium 142 Potassium 3.5 Chloride 108 H Carbon Dioxide 27 BUN 20 Creatinine 0.80 Glucose 97 Calcium 9.0 Diagnostic Findings Lumbar Spine X-Ray 06/28/25 10:40 FL lumbar spine 2-3V CLINICAL HISTORY: L3-S1 DECOMPRESSION AND FUSION COMPARISON STUDY: None pertinent FLUOROSCOPY TIME: 27 seconds FLUOROSCOPY IMAGES: 10 EXPOSURE DOSE: 20.95 mGy FINDINGS: Fluoroscopic guidance was provided for multilevel lumbar spine laminectomy and fusion. IMPRESSION: Please refer to the procedure report for evaluation based upon real- time fluoroscopic observation. ACT 112: Negative or not required by law. Electronically signed by: Holly Kumar M.D. 06/28/2025 2:24 PM
[2025-06-30] MEDS: LORazepam 0.5 MG TAB PO PRN (07:54)
--- NOTE | 2025-06-30 10:24 | Orthopedic Progress Note ---
Date of Service June 30, 2025 Assessment & Plan (1) Multilevel lumbosacral spondylosis with radiculopathy: Plan: At this time we will continue physical therapy monitor her LANG output. She has history of vaginitis secondary to long-term antibiotics and would like a Diflucan treatment today. Most likely discharge tomorrow pending her progress today. Admission and Anticipated Discharge Date Admission Date: June 28, 2025 Subjective Patient's back pain is controlled leg symptoms improved Physical Exam Physical Exam: Patient is in the chair at the bedside. Has good strength testing. Is comfortable. Results & Data Vital Signs (Past 12 Hours) Vital Signs Temp Pulse Pulse Resp BP BP Pulse Ox 06/30/25 07:30 36.4 C L 77 18 111/63 97 06/30/25 00:25 36.5 C 73 20 130/72 96 O2 Del Method 06/30/25 07:30 Room Air 06/30/25 00:25 Room Air Queries Orthopedic Spine Acute Posthemorrhagic Anemia: Yes
[2025-06-30] MEDS: FLUCONAZOLE 100 MG TAB PO SCH (11:58)
[2025-06-30] MEDS: FLUCONAZOLE 50 MG TAB PO ONE (13:16)
[2025-06-30 15:03] VITALS: RESP 16
[2025-06-30 23:55] VITALS: TEMP 97.9
[2025-07-01 06:26] LABS: Hematocrit (blood only) 28.3 % (37.0-47.0); Hemoglobin 9.8 g/dl (12.0-16.0); Mean Corpuscular Hemoglobin 31.9 pg (25.0-34.0); Mean Corpuscular Volume 92.2 fL (80.0-100.0); Platelet Count 221 K/uL (130-400); RDW Standard Deviation 44.4 fL (36.4-46.3); Red Blood Count 3.07 M/uL (4.20-5.40); White Blood Count 10.44 K/ul (4.8-10.8)
[2025-07-01 06:52] LABS: Anion Gap 6.0 (3-11); Blood Urea Nitrogen 24.0 mg/dl (6-23); Calcium 9.4 mg/dl (8.6-10.3); Carbon Dioxide 29.0 mmol/L (21-32); Chloride 105.0 mmol/L (98-107); Creatinine Clr Calc Pharmacy 45.1 ml/min; Glucose 104.0 mg/dl (70-99(Fasting)); Potassium 3.9 mmol/L (3.5-5.1); Sodium 140.0 mmol/L (136-145)
[2025-07-01 07:51] VITALS: BP 130/75; PULSE 76; O2SAT 100
--- NOTE | 2025-07-01 10:25 | Discharge Summary ---
Date of Service July 01, 2025 Admission HPI Per Admitting Provider This is a 80-year-old female presents chronic persistent back and leg pain after failing course of nonoperative care she is here for surgical invention. Principal Diagnosis Lumbar spondylosis with radiculopathy Discharge Data Allergies Allergy/AdvReac Type Severity Reaction Status Date / Time No Known Allergies Allergy Verified 06/28/25 09:57 Consultations 06/28/25 16:43 Consult Hospitalist Routine Procedures Performed Operation Date: 06/28/25 10:40 Actual Procedures p L3-S1 Decompression and Fusion(Not Applicable) - Del Abernathy DO Ordered Studies 06/28/25 10:40 FL lumbar spine 2-3V Routine Hospital Course (1) Multilevel lumbosacral spondylosis with radiculopathy: Patient went multilevel lumbar decompression fusion trial as well as taken orthopedic for postoperative. Post ablation progressed appropriately marked improvement of her leg symptoms. Excellent strength testing. LANG drain decreasing appropriately. Pain well-controlled. Subsidy discharged home. Discharge orders instructions from the chart for further review. Total Time Total Time Spent Total Time Spent (In Minutes): 20 minutes Discharge Plan Discharge Items Patient Disposition: Home - Self-Care Reason For Visit: Spondylolisthesis Lumbar Region Foraminal Stenosis Discharge Diagnosis: Lumbar spondylosis with radiculopathy Activity: As commented below Non-emergency contact: Primary Care Provider Call non-emergency contact if: you have any medication questions Follow-up/Referrals: Lenny Albert D.O. [Primary Care Provider] - Diet: Regular Addtl Attending Provider Instructions: ACTIVITY RECOMMENDATIONS: SELF CARE INSTRUCTIONS AFTER THORACIC/LUMBAR FUSIONS 1. You may walk to your tolerance. It is good exercise for your legs and back. Expect some back and intermittent leg aches and pains. 2. You may perform "counter-top" level activities (make a sandwich, sandrita with a project, etc.). 3. No bending or lifting of more than 10 pounds or back twisting of any nature (roll like a log when turning in bed). 4. You may ride in a car for 20-30 minutes at a time. No driving until after your first visit with your doctor. 5. Frequent changes of position and restricting sitting to 30 minutes at a time will help limit the amount of back spasms and stiffness you may experience. 6. You may discontinue the use of ambulatory aids (cane, crutches, etc.) once your strength and confidence allow. 7. You may manufacturing production manager the shower and let water strike your incision when you arrive home at least once daily. Do not take a tub bath, sit in a hot tub or go into a swimming pool until after your first recheck in the office. 8. You may resume previous diet. SPECIAL CARE INSTRUCTIONS: VERY IMPORTANT TO READ AND REVIEW A. Your surgical incision has been closed with a cosmetic suture under the skin that will dissolve in about 6 weeks. In 14 days, you can use a pair of clean scissors and cut the suture that is left outside of the skin at the ends of your incision. 1. The small skin tapes can be removed 7 days after surgery if they have not fallen off by that point. 2. You may keep the wound open to air as much as possible to promote healing after post-op day number 5 unless told otherwise by your doctor. 3. If you think the wound looks like it is becoming infected (redness or worsening drainage) and/or you are experiencing fever, chill or worsening back pain and muscle spasms, contact the office so that we may evaluate you as soon as possible. B. Complications are uncommon, but please contact us if you have any signs or symptoms of: 1. wound infection (fever higher than 102.5 degrees F, redness, separation of wound, drainage, or increasing pain from the incision) 2. blood clots in legs (pain, swelling, redness and warmth in legs) 3. urinary tract infection (fever higher than 102.5 degrees F, burning upon urination or increased frequency of urination) 4. nerve problems (inability to walk on your toes or heels, numbness, loss of bowel or bladder control) 5. any other symptoms that concern you C. Please call the office at if you have any concerns or questions about your operation or recovery. D. No smoking! Smoking drastically decreases the chance of a solid fusion. E. Do not take any anti-inflammatory medications (Indocin, Advil, Motrin, Aspirin, Naprosyn, etc.) as these may inhibit the chance of a solid fusion. Tylenol is okay to take for pain. MANAGING PAIN AFTER SPINAL SURGERY 1. Narcotic medication is intended for short-term use and will be provided for surgical pain. Surgical pain usually lasts for a period of 4-6 weeks. Narcotic medication includes Percocet, Vicodin, Darvocet, Tylenol #3 or Lortab. 2. Longer-term pain is more appropriately treated with non-narcotic medication such as Tylenol ES. 3. Muscle spasm is not appropriately treated with narcotics. Muscle relaxers such as Soma, Flexeril or Skelaxin can be used along with Tylenol ES. 4. Remember that we all live with some "aches and pains". This is not unusual or uncommon after an injury or as we get older. a. Back pain is expected and may include muscle spasms for 4 to 6 weeks after surgery. The pain should gradually improve. If the pain worsens for no apparent reason, please contact the office. b. Intermittent leg pain may also be experienced and should not be concerned about unless it worsens for no apparent reason. If so, please contact the office. 5. We will provide appropriate medication within the normal guidelines of their prescribed use. We will also be very cautious and aware of potential abuse and extended duration of patients' medication needs. a. Pain medications are for your comfort and to assist with sleep and rest so that the tissue can heal. They are not provided in order to return to normal activity and should not be used through the day. To do so or worsening pain at night can result from ongoing tissue damage and development of tolerance to the prescribed medicine. 6. Please allow 2-3 days to process refills. Prescriptions will not be mailed but must be picked up at the office. FOLLOW UP VISIT: Keep your scheduled follow-up appointment. Any questions, please call the office at . Pending Studies at Discharge: No Stand-Alone Forms: [facility], Smoking Cessation Medications and DC Order Prescriptions: New tramadol 50 mg tablet 50 mg PO Q6H PRN (Reason: pain, moderate) Qty: 30 0RF oxycodone-acetaminophen [Percocet] 5-325 mg tablet 1 tab PO Q8H Qty: 30 0RF Rx Instructions: Oxycodone for severe pain tramadol for moderate pain cyclobenzaprine 10 mg Tablet 5 mg PO Q8 PRN (Reason: muscle spasm) Qty: 20 0RF Continued prednisone 10 mg Tablet 10 mg PO DAILY PRN (Reason: Pain) baclofen 20 mg Tablet 5 mg PO BID PRN (Reason: Pain) amlodipine 10 mg Tablet 10 mg PO HS zolpidem [Ambien] 5 mg Tablet 10 mg PO HS PRN (Reason: sleep ) celecoxib [Celebrex] 100 mg Capsule 100 mg PO HS acetaminophen 500 mg Capsule 1,000 mg PO TID dicyclomine [Bentyl] 10 mg Capsule 10 mg PO BID PRN (Reason: Abdominal Discomfort) gabapentin 100 mg Tablet 100 mg PO HS omeprazole 20 mg Tablet,Delayed Release (Dr/Ec) 20 mg PO QAM cholecalciferol (vitamin D3) [Vitamin D3] 125 mcg (5,000 unit) Tablet 125 mcg PO BID aspirin 81 mg Capsule 81 mg PO UD Patient Comments: three times per week Discontinued naproxen [Naprosyn] 375 mg Tablet 375 mg PO BID PRN (Reason: Pain) ibuprofen 800 mg Tablet 800 mg PO Q8H PRN (Reason: Pain) Discharge Orders: Discharge Order (Routine); Ordered 07/01/25 Ordered By: Del Abernathy Admission Data Admit Date/Time: 06/28/25 14:10 Attending Provider: Del Abernathy Admit Provider: Del Abernathy Primary Care Provider: Lenny Albert Other Providers: Flora Wilson; Lorrie Morocho
[2025-07-01] MEDS: CYCLOBENZAPRINE HCL 5 MG TAB PO SCH (10:51)
--- NOTE | 2025-07-01 12:06 | Hospitalist Progress Note ---
Date of Service July 01, 2025 Assessment & Plan (1) Multilevel lumbosacral spondylosis with radiculopathy: (2) Encounter for pre-operative examination: (3) HTN (hypertension): Plan Patient is a 80 year old F with a past medical history of HTN, IBS, urinary incontinence 2/2 cystocele with prolapse presenting with post-operative medical/surgical management following back surgery for spondylolisthesis with radiculopathy. Multilevel lumbosacral spondylosis with radiculopathy POD#2 s/p lumbar decompression with bilateral medial facetectomies and foraminotomies L2-S1; posterior spinal fusion L3-S1; posterior segmental instrumentation L3-S1; interbody fusion L3-S1 with Dr. Abernathy Per ortho for pain control, wound care, anticoagulation and activities WBC 13.08 -> 12.4, in setting of IV Decadron. No suspicion for infection For DC today. No BM yet but passing gas and eating without issue Advised to take miralax at home No medical issue with discharging home today Post op blood loss anemia stable no s/s acute blood loss Hypertension Continue home amlodipine HS DVT Ppx: SCDs Code status: Full PCP: Dr. Lenny Albert Dispo: Admitted to med/surg, dispo per primary service. I spent a total of 28 minutes coordinating, documenting, and providing care for this patient excluding time spent in the performance of separately billed services. This included personally reviewing all current laboratories and imaging studies, medical reconciliation, outpatient chart review and discussion with specialists Admission and Anticipated Discharge Date Admission Date: June 28, 2025 Subjective Feeling well today. she is very eager to go home today. Patient denies F/C, CP, palpitations, SOB, dyspnea, abd pain, N/V/D. no BM yet but passing gas and eating without difficulty. Physical Exam Physical Exam: Vitals and labs reviewed General: Well appearing, NAD HEENT: EOMI Neck: Supple Lungs: No distress Abd: ND MSK: Full ROM. No obvious deformities Ext: No Edema cyanosis Skin: Warm, Dry Neuro: AOx3 No focal deficits. Psych: Normal Mood Results & Data Results & Data Vital Signs (Past 12 Hours) Vital Signs Temp Pulse Resp BP Pulse Ox O2 Del Method 07/01/25 07:58 36.6 C 07/01/25 07:50 76 16 130/75 100 Room Air
== END 2025-07-01 12:20 | disposition home or self-care (01) | DRG 427 ==
LOC: ASU 09:31 → PACUINP 14:10 → 3E 16:42

== ENCOUNTER 2025-07-11 13:41 | Inpatient (IN) ==
[2025-07-11] MEDS: ACETAMINOPHEN 1,000 MG/100 ML VIAL IV STA (14:19)
[2025-07-11] MEDS: LIDOCAINE 5% 1 PATCH TD STA (14:19)
[2025-07-11] MEDS: KETOROLAC TROMETHAMINE 15 MG/ML VIAL IV ONE (14:20)
[2025-07-11 14:26] LABS: Hematocrit (blood only) 32.2 % (37.0-47.0); Hemoglobin 10.3 g/dl (12.0-16.0); Immature Granulocytes # (auto) 0.07 K/uL (0.01-0.20); Immature Granulocytes % (auto) 0.6 %; Mean Corpuscular Hemoglobin 29.7 pg (25.0-34.0); Mean Corpuscular Volume 92.8 fL (80.0-100.0); Platelet Count 293 K/uL (130-400); RDW Standard Deviation 43.8 fL (36.4-46.3); Red Blood Count 3.47 M/uL (4.20-5.40); White Blood Count 12.33 K/ul (4.8-10.8)
[2025-07-11 14:43] LABS: Alanine Aminotransferase 3 U/L (7-52); Albumin Globulin Ratio 1.4 (0.9-2); Albumin Level 3.7 gm/dl (3.4-5.0); Alkaline Phosphatase 125 U/L (34-104); Anion Gap 5 (3-11); Bilirubin,Total 0.7 mg/dl (0.2-1.0); Blood Urea Nitrogen 21 mg/dl (6-23); Calcium 9.6 mg/dl (8.6-10.3); Carbon Dioxide 29 mmol/L (21-32); Chloride 104 mmol/L (98-107); Globulin 2.7 gm/dl (2.5-4.0); Glucose 114 mg/dl (70-99(Fasting)); Potassium 4.1 mmol/L (3.5-5.1); Sodium 138 mmol/L (136-145); Total Protein 6.4 gm/dl (6.0-8.3)
[2025-07-11 14:51] LABS: INR 1.0 (0.9-1.1); Prothrombin Time 10.5 Seconds (9.0-12.0)
--- NOTE | 2025-07-11 14:58 | Emergency Department Note ---
Impression & Plan Low back pain, History of lumbar surgery ED Provider Note ED Provider Note NAME: ALEXIS CABALLERO AGE:80 SEX: Female : 1945 ARRIVES VIA: private vehicle INFORMANT: Patient ED PROVIDER(s): Anne-Marie Guerrero DO CHIEF COMPLAINT: persistent low back pain HPI: This is a 80-year-old female who presents to the emergency department due to concern for persistent low back pain following back surgery with Dr. Abernathy 3 weeks ago. She states she has been taking the postop medication she was prescribed. She denies any falls or injury. She states she does not feel as though the pain has been improving at all and has begun to limit any attempts to rehab and get back to normal activities. She denies fevers, chills, discharge or drainage from the wound, abdominal pain, urinary or fecal incontinence, or saddle anesthesia. PAST MEDICAL HISTORY:See Below PAST SURGICAL HISTORY:See Below FAMILY HISTORY:See Below SOCIAL HISTORY:See Below HOME MEDICATIONS:See Below ALLERGIES:See Below VITALS:See Below PHYSICAL EXAMINATION: GENERAL: alert, comfortable appearing, well nourished, mild distress, non-toxic EYE EXAM: normal conjunctiva, PERRL and EOM's grossly intact OROPHARYNX: no exudate, no erythema, lips, buccal mucosa, and tongue normal and mucous membranes are moist NECK: supple, no nuchal rigidity, no adenopathy, non-tender LUNGS: Clear to auscultation. Normal chest wall mechanics, no w/r/r HEART: no murmurs, S1 normal and S2 normal ABDOMEN: abdomen soft, non-tender, normo-active bowel sounds, no masses, no rebound or guarding. BACK: Back is symmetrical on inspection and there is no deformity, no CVA tenderness. Well-appearing healing vertical midline lumbar incision, no dehiscence, no drainage, no surrounding erythema, no crepitus SKIN: no rashes, petechiae, orbruising UPPER EXTREMITIES: upper extremities are grossly normal. FROM, nml pulses b/l. LOWER EXTREMITIES: No pitting edema. FROM, nml pulses b/l. NEURO EXAM: Normal sensorium, cranial nerves II-XII grossly intact, normal speech, no facial droop,nogross weakness of arms, no gross weakness of legs. Gross sensation intact. No ataxia. Vital Signs: reviewed and remarkable Differential Diagnosis: Postop seroma, postop hematoma, abscess, hardware infection, osteomyelitis, epidural abscess, epidural hematoma, occult fracture, as well as others were considered MEDICAL DECISION MAKING: This is a 80-year-old female who is 3 weeks postop from a spine surgery with Dr. Abernathy who presents due to persistent low back pain without improvement despite home medications including muscle relaxers, narcotics, and recent steroid course. Wound was well-appearing. Patient had pain with any attempts at movement or ambulation. Labs drawn and sent, IV established, patient monitored on telemetry. Patient declined IV pain medication. She was given IV Tylenol and IV Toradol. Labs reassuring. I suspect mild leukocytosis more likely related to recent completion of a Medrol Dosepak and less likely from evolving infection. Case discussed with Dr. Abernathy who knows the patient well and will admit to his service. He did request an order for an MRI of the lumbar spine be placed. This was added per his request and he will follow-up the results. Consultation(s): 1455: Discussed with Dr. Abernathy, orthospine. He will admit to his service. Would like MRI without contrast of lumbar spine ordered. ER Treatment Provided: See below Diagnostics Interpreted By Me: -Cardiac Monitoring: An order was placed for continuous cardiac monitoring. The monitor shows a rate of 92 with normal sinus rhythm. -Laboratory studies: As stated above and show below. Triage Nursing Note Reviewed Prior/Outside Records Reviewed Past Med/Surg History Problem List (Updated 07/12/25 @ 14:43 by ARMINDA Villalobos) E. coli UTI Lumbar radiculopathy History of lumbar surgery (Acute) Low back pain (Acute) Multilevel lumbosacral spondylosis with radiculopathy Encounter for pre-operative examination Medical History Acid reflux well controlled Neuropathy bilat feet /legs History of postoperative nausea and vomiting Slow to wake up after anesthesia Cystocele with prolapse mild prolapse Urinary incontinence IBS (irritable bowel syndrome) w/ diarrhea Low back pain HTN (hypertension) Surgical History Hx of bilateral cataract extraction Hx of colonoscopy History of foot surgery right - tarsal tunnel History of carpal tunnel release of both wrists Hx of parathyroidectomy removal of adenoma Hx of hysterectomy Social History Smoking Status: Never smoker Second Hand Exposure: Yes; Do You Dip or Chew Tobacco: No; Hx Alcohol Use: No Hx Substance Use: No Preferred Language: Malay Communication Ability: Effective Tele Rn Required: No Beliefs That Will Affect Care: None Current Living Situation: Spouse Other Information That Helps Us Care for You: No Feels Safe at Home: Yes Safety Concerns: Feels Safe At This Time Assistive Devices: Walker Allergies Allergies Allergy/AdvReac Type Severity Reaction Status Date / Time No Known Allergies Allergy Verified 07/11/25 15:19 Home Meds Home Medications Medication Instructions Recorded Confirmed acetaminophen 500 mg capsule 1,000 mg PO TID PRN Pain 06/21/25 07/11/25 amlodipine 10 mg tablet 10 mg PO HS 06/21/25 07/11/25 aspirin 81 mg capsule 81 mg PO [id number] 06/21/25 07/11/25 baclofen 20 mg tablet 5 mg PO BID PRN Pain 06/21/25 07/11/25 celecoxib 100 mg capsule (Celebrex) 100 mg PO HS 06/21/25 07/11/25 cholecalciferol (vitamin D3) 125 125 mcg PO BID 06/21/25 07/11/25 mcg (5,000 unit) tablet (Vitamin D3) dicyclomine 10 mg capsule 10 mg PO BID PRN Abdominal 06/21/25 07/11/25 Discomfort gabapentin 100 mg tablet 100 mg PO HS 06/21/25 07/11/25 ibuprofen 800 mg tablet 800 mg PO Q8H PRN Pain 06/21/25 07/11/25 naproxen 375 mg tablet 375 mg PO BID PRN Pain 06/21/25 07/11/25 omeprazole 20 mg tablet,delayed 20 mg PO QAM 06/21/25 07/11/25 release prednisone 10 mg tablet 10 mg PO DAILY PRN Pain 06/21/25 07/11/25 zolpidem 5 mg tablet (Ambien) 10 mg PO HS PRN sleep 06/21/25 07/11/25 Previous Rx's Medication Instructions Recorded oxycodone-acetaminophen 5 mg-325 1 tab PO Q8H #30 tabs 06/29/25 mg tablet (Percocet) tramadol 50 mg tablet 50 mg PO Q6H PRN pain, moderate 06/29/25 #30 tabs cyclobenzaprine 10 mg tablet 5 mg (1/2 x 10 mg) PO Q8 PRN 07/01/25 muscle spasm #20 tabs Results & Data (ED) Vital Signs Vital Signs - 24 hr 07/11/25 13:42 07/11/25 14:23 Temperature 36.5 C Temperature Source Temporal Artery Scan Pulse Rate 102 H 96 H Respiratory Rate 18 Respiratory Effort / Characteristics Non-Labored Spontaneous Respiratory Depth Normal Blood Pressure 145/74 H Blood Pressure Mean 97 Blood Pressure Position Sitting Pulse Oximetry 99 Oxygen Delivery Method Room Air Sepsis Recent Fever Within 48 Hours No Sepsis New/Unexplained Change in Mental Status No Sepsis Action Taken by Nursing No Action Required Laboratory Data 07/12/25 05:32 07/12/25 05:32 Lab Results 07/11/25 Range/Units 14:09 WBC 12.33 H (4.8-10.8) K/ul RBC 3.47 L (4.20-5.40) M/uL Hgb 10.3 L (12.0-16.0) g/dl Hct 32.2 L (37.0-47.0) % MCV 92.8 (80.0-100.0) fL MCH 29.7 (25.0-34.0) pg MCHC 32.0 (32.0-36.0) g/dL RDW Std Deviation 43.8 (36.4-46.3) fL RDW Coeff of Karen 13.0 (11.5-14.5) % Plt Count 293 (130-400) K/uL MPV 8.8 L (9.4-12.4) fL Immature Gran % (Auto) 0.6 % Neut % (Auto) 86.5 % Lymph % (Auto) 7.0 % Mcclain % (Auto) 5.8 % Eos % (Auto) 0.0 % Baso % (Auto) 0.1 % Neut # (Auto) 10.68 H (1.40-6.50) K/uL Lymph # (Auto) 0.86 L (1.20-3.40) K/uL Mcclain # (Auto) 0.71 H (0.11-0.59) K/uL Eos # (Auto) 0.00 (0.00-0.50) K/uL Baso # (Auto) 0.01 (0.00-0.20) K/uL Immature Gran # (Auto) 0.07 (0.01-0.20) K/uL PT 10.5 (9.0-12.0) Seconds INR 1.0 (0.9-1.1) Sodium 138 (136-145) mmol/L Potassium 4.1 (3.5-5.1) mmol/L Chloride 104 (98-107) mmol/L Carbon Dioxide 29 (21-32) mmol/L Anion Gap 5 (3-11) BUN 21 (6-23) mg/dl Creatinine 0.74 (0.6-1.2) mg/dl Est Cr Clr Drug Dosing Not Reportable eGFR 82.25 BUN/Creatinine Ratio 28.4 H (10-20) Glucose 114 H (70-99(Fasting)) mg/dl Calcium 9.6 (8.6-10.3) mg/dl Total Bilirubin 0.7 (0.2-1.0) mg/dl AST 11 L (13-39) U/L ALT 3 L (7-52) U/L Alkaline Phosphatase 125 H (34-104) U/L Total Protein 6.4 (6.0-8.3) gm/dl Albumin 3.7 (3.4-5.0) gm/dl Globulin 2.7 (2.5-4.0) gm/dl Albumin/Globulin Ratio 1.4 (0.9-2) Administered Medications Amlodipine Besylate (Amlodipine Besylate 5 Mg Tab) 10 mg PO HS [facility] Stop: 08/10/25 20:59 Last Admin: 07/11/25 19:56 Dose: 10 mg Documented By: ashlyn Aspirin (Aspirin 81 Mg Ectab) 81 mg PO [id number] [facility] Stop: 08/11/25 08:59 Last Admin: 07/12/25 08:25 Dose: 81 mg Documented By: DARLIN Famotidine (Famotidine 20 Mg Tab) 20 mg PO Q12H PRN PRN Reason: Dyspepsia Stop: 08/11/25 11:39 Last Admin: 07/12/25 14:21 Dose: 20 mg Documented By: DARLIN Hydromorphone HCl (Hydromorphone Inj 0.5 Mg/0.5 Ml Syr) 0.5 mg IV Q3H PRN PRN Reason: MOD pain (scale 4-6) & Pre PT Stop: 07/25/25 17:29 Last Admin: 07/11/25 23:50 Dose: 0.5 mg Documented By: ashlyn Hydromorphone HCl (Hydromorphone Inj 1 Mg/Ml Syringe) 1 mg IV Q3H PRN PRN Reason: severe pain (scale 7-10) Stop: 07/25/25 17:29 Last Admin: 07/12/25 06:24 Dose: 1 mg Documented By: ashlyn Cefazolin Sodium (Ancef 2000mg) 2,000 mg in 15 mls @ 3.75 mls/min IV PREOP [facility]; Protocol Stop: 07/13/25 05:59 Last Admin: 07/12/25 09:51 Dose: 3.75 mls/min Documented By: OBI Lactated Ringer's (Lr) 1,000 mls @ 75 mls/hr IV .[id number] [facility] Stop: 07/13/25 08:00 Last Admin: 07/12/25 11:45 Dose: 75 mls/hr Documented By: DARLIN Cefazolin Sodium (Ancef 2000mg) 2,000 mg in 15 mls @ 3.75 mls/min IV Q8H [facility]; Protocol Stop: 07/14/25 08:33 Last Admin: 07/12/25 15:32 Dose: 3.75 mls/min Documented By: DARLIN Nystatin (Nystatin Susp 500,000 U/5 Ml Udc) 10 ml PO TID [facility] Stop: 07/21/25 20:59 Last Admin: 07/12/25 14:16 Dose: 10 ml Documented By: Admin: 07/12/25 08:24 Dose: 10 ml Documented By: Admin: 07/11/25 20:53 Dose: 10 ml Documented By: ashlyn Ondansetron HCl (Ondansetron Inj 2 Mg/Ml 2 Ml Vial) 4 mg IV Q6H PRN PRN Reason: Nausea &/or Vomiting Stop: 08/11/25 11:39 Last Admin: 07/12/25 12:56 Dose: 4 mg Documented By: DARLIN Oxycodone HCl (Oxycodone Hcl Ir 5 Mg Tab (Immediate Release)) 5 - 10 mg PO Q4H PRN PRN Reason: mod to severe pain Stop: 07/25/25 17:29 Last Admin: 07/12/25 02:55 Dose: 10 mg Documented By: ashlyn Admin: 07/11/25 19:57 Dose: 5 mg Documented By: ashlyn Pantoprazole Sodium (Pantoprazole 40 Mg Tab) 40 mg PO QAM [facility] Stop: 08/11/25 02:49 Last Admin: 07/12/25 02:55 Dose: 40 mg Documented By: ashlyn Discontinued Medications Bupivacaine HCl/Epinephrine Bitart (Bupivacaine/Epinephrine 0.25% 1:200,000 30 Ml Vial) Confirm Administered Dose 30 ml .ROUTE .STK-MED ONE Stop: 07/12/25 09:36 Last Admin: 07/12/25 10:15 Dose: 15 ml Documented By: GURDEEP Calcium Carbonate (Calcium Carbonate 500 Mg Chewable Tab) 500 mg PO NOW STA Stop: 07/12/25 06:32 Last Admin: 07/12/25 06:41 Dose: 500 mg Documented By: ashlyn Cefazolin Sodium (Cefazolin 330 Mg/Ml 1 Gm Vial) Confirm Administered Dose 2,970 mg .ROUTE .STK-MED ONE Stop: 07/12/25 09:36 Last Admin: 07/12/25 10:20 Dose: 3,000 mg Documented By: GURDEEP Gentamicin Sulfate (Gentamicin Sulfate 40 Mg/Ml 2 Ml Vial) Confirm Administered Dose 240 mg .ROUTE .STK-MED ONE Stop: 07/12/25 10:08 Last Admin: 07/12/25 10:27 Dose: Not Given Documented By: LAURA Acetaminophen (Ofirmev) 1,000 mg in 100 mls @ 400 mls/hr IV NOW STA Stop: 07/11/25 14:27 Last Infusion: 07/11/25 14:46 Dose: Infused Documented By: Admin: 07/11/25 14:19 Dose: 400 mls/hr Documented By: IDA Lactated Ringer's (Lr) 1,000 mls @ 75 mls/hr IV .[id number] [facility] Stop: 07/12/25 08:00 Last Admin: 07/12/25 11:46 Dose: Not Given Documented By: Infusion: 07/12/25 08:05 Dose: Infused Documented By: Infusion: 07/12/25 04:30 Dose: 0 mls/hr Documented By: ashlyn Admin: 07/11/25 17:30 Dose: 75 mls/hr Documented By: LMBabs Ketorolac Tromethamine (Ketorolac Tromethamine 15 Mg/Ml Vial) 10 mg IV NOW ONE Stop: 07/11/25 14:14 Last Admin: 07/11/25 14:20 Dose: 10 mg Documented By: IDA Lidocaine (Lidocaine 5% 1 Patch) 1 patch TD NOW STA Stop: 07/11/25 14:14 Last Admin: 07/11/25 14:19 Dose: 1 patch Documented By: IDA Miscellaneous (Remove Lidoderm Patch) 1 each N/A DAILY@2100 [facility] Stop: 08/10/25 20:59 Last Admin: 07/11/25 21:08 Dose: Not Given Documented By: ashlyn Vancomycin HCl (Vancomycin Hcl 1000mg/20ml Vial) Confirm Administered Dose 50 mg .ROUTE .STK-MED ONE Stop: 07/12/25 10:08 Last Admin: 07/12/25 10:27 Dose: Not Given Documented By: LAURA Discharge Plan Visit Data Chief Complaint: Leg Weakness, Bilateral Stated Complaint: CAN'T WALK, PSOT SURGERY L3 L4 L5 ED Provider: Anne-Marie Guerrero Discharge Problem: Low back pain, History of lumbar surgery Patient Disposition: Admitted As Inpatient Condition: Fair Discharge Instructions Interventions: ED Discharge Assessment Last Done: 07/11/25 17:16
[2025-07-11] MEDS ORDERED: METOCLOPRAMIDE HCL INJ 5 MG/ML 2 ML VIAL IV PRN (17:30)
[2025-07-11] MEDS ORDERED: ONDANSETRON INJ 2 MG/ML 2 ML VIAL IV PRN (17:30)
[2025-07-11] MEDS: LACTATED RINGER'S 1,000 ML IV SCH (17:30)
[2025-07-11] MEDS ORDERED: ACETAMINOPHEN 500 MG TAB PO PRN (17:30)
[2025-07-11] MEDS ORDERED: ZOLPIDEM TARTRATE 5 MG TAB PO PRN (17:30)
[2025-07-11] MEDS ORDERED: PROMETHAZINE 12.5 MG/50.5 ML BAG IV PRN (17:30)
[2025-07-11] MEDS ORDERED: LORazepam 0.5 MG TAB PO PRN (17:30)
[2025-07-11] MEDS ORDERED: ONDANSETRON 4 MG OD TAB PO PRN (17:30)
[2025-07-11] MEDS ORDERED: NALOXONE HCL 0.4 MG/1 ML VIAL/CARP IV PRN (17:30)
[2025-07-11] MEDS ORDERED: ACETAMINOPHEN 1,000 MG/100 ML VIAL IV PRN (17:30)
--- NOTE | 2025-07-11 17:41 | Magnetic Resonance Report ---
MRI LUMBAR SPINE WITHOUT CONTRAST TECHNIQUE: An MRI examination of the lumbar spine was performed. The examination consists of sagittal T1-weighted, inversion recovery and T2 weighted images as well as axial T1-weighted, T2-weighted and gradient echo images. INDICATION: Back pain COMPARISON: None. FINDINGS: Postoperative changes of L3-S1 posterior instrumented fusion with laminectomies are seen. No significant vertebral body height loss. There is a grade 1 anterolisthesis of L5 on S1. Mild retrolisthesis of L1 on L2. Bone marrow signal is unremarkable. In the laminectomy bed, there is a fluid collection, likely representing a postoperative seroma or hematoma measuring 3.0 x 3.0 x 6.5 cm (AP x TV x CC). This collection extends anteriorly into the spinal canal where it exerts mass effect upon the thecal sac resulting in its compression and effacement. There are multilevel degenerative changes of the lumbar spine as below: L1-2: Broad-based disc bulge with annular fissures, bilateral facet arthropathy and thickening of the ligamentum flavum. These changes result in moderate tricompartmental spinal canal stenosis, moderate to severe narrowing of the right and mild narrowing of the left neural foramina. L2-3: Broad-based disc bulge, bilateral facet arthropathy and thickening of the ligamentum flavum. These changes result in moderate to severe tricompartmental spinal canal stenosis and moderate to severe bilateral neural foraminal narrowing. L3-4: Postoperative changes as above. Broad-based disc bulge and bilateral facet arthropathy result in moderate to severe bilateral neural foraminal narrowing. L4-5: Postoperative changes as above. Broad-based disc bulge and bilateral facet arthropathy result in moderate to severe bilateral neural foraminal narrowing. L5-S1: Postoperative changes as above. Broad-based disc bulge with annular fissures and uncovering of the disc. Bilateral facet arthropathy. These changes result to severe bilateral neural foraminal narrowing. IMPRESSION: Postoperative changes of L3-S1 posterior instrumented fusion with laminectomies Advanced degenerative changes superiorly to the surgical site and advanced and neural foraminal narrowing persist at the surgical sites. Fluid collection in the laminectomy bed, likely representing a postoperative seroma or a hematoma measuring up to 6.5 cm in craniocaudal dimension, extends anteriorly into the spinal canal where it causes compression and effacement of the thecal sac. Electronically signed by Terrence Garcia 07-11-2025 5:40 PM
[2025-07-11 18:54] LABS: Appearance Urine Clear (Clear); Bacteria Urine Automated 4+ (None Seen); Cast Urine Automated 0-2 /lpf (0-2); Epithelial Cell Urine Auto 0-2 /hpf (0-2); Glucose Urine UA Negative (Negative); RBC Urine Automated 0-2 /hpf (0-2)
--- NOTE | 2025-07-11 20:09 | Hospitalist Consultation ---
Date of Consultation July 11, 2025 Assessment & Plan (1) Multilevel lumbosacral spondylosis with radiculopathy: S/P lumbar decompression with bilateral medial facetectomies and foraminotomies L2-S1; posterior spinal fusion L3-S1; posterior segmental instrumentation L3-S1; interbody fusion L3-S1 with Dr. Abernathy on on 06/28/2025 Admitted today with increasing lumbar back pain and numbness involving the feet without any fever and/or chills and noted to have Seroma/hematoma up to 6.5 cm in craniocaudal dimension in MRI She will have incision and drainage of the seroma tomorrow She has been started on intravenous cefazolin There is no contraindication for proposed surgery Will monitor her blood counts and electrolytes She complains of oral thrush and will prescribe nystatin (2) Low back pain: As above (3) Urinary incontinence: No acute issues now (4) IBS (irritable bowel syndrome): No acute issues (5) HTN (hypertension): Blood pressure remains on the upper side at 150/657 Will continue current medications DVT prophylaxis As [facility] her with you during this hospitalization History of Present Illness Reason for Consultation: Medical management and going to have lumbar procedure tomorrow Requesting Physician: Dr. Abernathy Attending Physician: Del Abernathy DO History of Present Illness She is a 80-year-old female with significant past medical history of hypertension, IBS, urinary incontinence secondary to cystocele with prolapse has had multilevel lumbosacral spondylitis with radiculopathy and underwent spinal surgery on 06/28/2025. She has been complaining of increasing pain and radiculopathy following the procedure and MRI noted to have fluid collection in the laminectomy bed likely representing a postoperative seroma or a hematoma measuring up to 6.5 cm in craniocaudal dimensions and extending anteriorly into the spinal canal where it compressing and effacement of the thecal sac. He will have incision and drainage of the lumbar area tomorrow. Denies any chest pain and/or palpitation. No abdominal pain nausea or vomiting. Does not have any problem with urine or bowel habit and denies any fever and/or chills. She complains of oral thrush Allergies Allergy/AdvReac Type Severity Reaction Status Date / Time No Known Allergies Allergy Verified 07/11/25 15:19 Home Medications Medication Instructions Recorded Confirmed Type acetaminophen 500 mg capsule 1,000 mg PO TID PRN Pain 06/21/25 07/11/25 History amlodipine 10 mg tablet 10 mg PO HS 06/21/25 07/11/25 History aspirin 81 mg capsule 81 mg PO [id number] 06/21/25 07/11/25 History baclofen 20 mg tablet 5 mg PO BID PRN Pain 06/21/25 07/11/25 History celecoxib 100 mg capsule (Celebrex) 100 mg PO HS 06/21/25 07/11/25 History cholecalciferol (vitamin D3) 125 125 mcg PO BID 06/21/25 07/11/25 History mcg (5,000 unit) tablet (Vitamin D3) dicyclomine 10 mg capsule 10 mg PO BID PRN Abdominal 06/21/25 07/11/25 History Discomfort gabapentin 100 mg tablet 100 mg PO HS 06/21/25 07/11/25 History ibuprofen 800 mg tablet 800 mg PO Q8H PRN Pain 06/21/25 07/11/25 History naproxen 375 mg tablet 375 mg PO BID PRN Pain 06/21/25 07/11/25 History omeprazole 20 mg tablet,delayed 20 mg PO QAM 06/21/25 07/11/25 History release prednisone 10 mg tablet 10 mg PO DAILY PRN Pain 06/21/25 07/11/25 History zolpidem 5 mg tablet (Ambien) 10 mg PO HS PRN sleep 06/21/25 07/11/25 History oxycodone-acetaminophen 5 mg-325 1 tab PO Q8H #30 tabs 06/29/25 07/11/25 Rx mg tablet (Percocet) tramadol 50 mg tablet 50 mg PO Q6H PRN pain, moderate 06/29/25 07/11/25 Rx #30 tabs cyclobenzaprine 10 mg tablet 5 mg (1/2 x 10 mg) PO Q8 PRN 07/01/25 07/11/25 Rx muscle spasm #20 tabs Patient History Medical History Acid reflux well controlled Neuropathy bilat feet /legs History of postoperative nausea and vomiting Slow to wake up after anesthesia Cystocele with prolapse mild prolapse Urinary incontinence IBS (irritable bowel syndrome) w/ diarrhea Low back pain HTN (hypertension) Surgical History Hx of bilateral cataract extraction Hx of colonoscopy History of foot surgery right - tarsal tunnel History of carpal tunnel release of both wrists Hx of parathyroidectomy removal of adenoma Hx of hysterectomy Social History Smoking Status: Never smoker Second Hand Exposure: Yes; Do You Dip or Chew Tobacco: No; Hx Alcohol Use: No Hx Substance Use: No Preferred Language: Kyrgyz Communication Ability: Effective Rigging [place] Required: No Beliefs That Will Affect Care: None Current Living Situation: Spouse Other Information That Helps Us Care for You: No Feels Safe at Home: Yes Safety Concerns: Feels Safe At This Time Assistive Devices: None Review of Systems Review of Systems: All systems reviewed and are unremarkable except as noted below Physical Exam Physical Exam: Lying in bed with acute distress due to back pain and numbness involving the feet Constitutional: well developed, well nourished, + ill appearing and average body habitus Eyes: PERRL, conjunctivae normal, anicteric sclerae ENMT: external ear and nose normal, oropharynx normal Neck: trachea midline, no thyromegaly Respiratory: no respiratory distress Auscultation: lungs clear to auscultation bilaterally Cardiovascular: Rate/Rhythm: regular rate and regular rhythm; not tachycardic Heart Sounds: normal S1 and normal S2; no murmur Extremities: no edema Gastrointestinal (Abdomen): Inspection/Auscultation: normal bowel sounds; abdomen not distended Percussion/Palpation: abdomen soft; abdomen nontender Musculoskeletal: Lower lumbar back pain and tenderness with radiculopathy. Neurologic: Numbness involving the lower legs bilaterally. Sensation minimally impaired but power seems to be normal Lymphatic: no cervical or axillary lymphadenopathy Results & Data Results & Data Vital Signs (Past 12 Hours) Vital Signs Temp Pulse Pulse Pulse Resp BP BP 07/11/25 19:52 36.7 C 90 18 150/57 H 07/11/25 17:30 07/11/25 17:30 36.7 C 80 18 160/69 H 07/11/25 17:30 36.7 C 80 18 160/69 H 07/11/25 15:48 79 15 167/70 H 07/11/25 15:19 85 16 07/11/25 15:03 93 H 17 07/11/25 15:00 168/82 H 07/11/25 15:00 168/82 H 07/11/25 14:55 172/71 H 07/11/25 14:55 172/71 H 07/11/25 14:51 87 21 07/11/25 14:42 88 17 07/11/25 14:36 90 18 07/11/25 14:23 96 H 07/11/25 13:42 36.5 C 102 H 18 145/74 H BP Pulse Ox O2 Del Method 07/11/25 19:52 99 Room Air 07/11/25 17:30 Room Air 07/11/25 17:30 99 Room Air 07/11/25 17:30 99 Room Air 07/11/25 15:48 97 07/11/25 15:19 168/82 H 99 Room Air 07/11/25 15:03 99 07/11/25 15:00 07/11/25 15:00 07/11/25 14:55 07/11/25 14:55 07/11/25 14:51 95 07/11/25 14:42 97 07/11/25 14:36 96 07/11/25 14:23 07/11/25 13:42 99 Room Air Laboratory Results Short CBC 07/11/25 Range/Units 14:09 WBC 12.33 H (4.8-10.8) K/ul Hgb 10.3 L (12.0-16.0) g/dl Hct 32.2 L (37.0-47.0) % Plt Count 293 (130-400) K/uL BMP 07/11/25 14:09 Sodium 138 Potassium 4.1 Chloride 104 Carbon Dioxide 29 BUN 21 Creatinine 0.74 Glucose 114 H Calcium 9.6 Liver Function 07/11/25 Range/Units 14:09 Total Bilirubin 0.7 (0.2-1.0) mg/dl AST 11 L (13-39) U/L ALT 3 L (7-52) U/L Alkaline Phosphatase 125 H (34-104) U/L Albumin 3.7 (3.4-5.0) gm/dl Urine 07/11/25 Range/Units 18:15 Urine Color Yellow Urine Appearance Clear (Clear) Urine pH 6.5 (4.5-7.5) Ur Specific [place] 1.010 (1.000-1.030) Urine Protein Negative (Negative) Urine Glucose (UA) Negative (Negative) Diagnostic Findings Laboratory Results WBC 12.33 K/ul (4.8-10.8) H 07/11/25 14:09 RBC 3.47 M/uL (4.20-5.40) L 07/11/25 14:09 Hgb 10.3 g/dl (12.0-16.0) L 07/11/25 14:09 Hct 32.2 % (37.0-47.0) L 07/11/25 14:09 MCV 92.8 fL (80.0-100.0) 07/11/25 14:09 MCH 29.7 pg (25.0-34.0) 07/11/25 14:09 MCHC 32.0 g/dL (32.0-36.0) 07/11/25 14:09 RDW Std Deviation 43.8 fL (36.4-46.3) 07/11/25 14:09 RDW Coeff of Karen 13.0 % (11.5-14.5) 07/11/25 14:09 Plt Count 293 K/uL (130-400) 07/11/25 14:09 MPV 8.8 fL (9.4-12.4) L 07/11/25 14:09 Immature Gran % (Auto) 0.6 % 07/11/25 14:09 Neut % (Auto) 86.5 % 07/11/25 14:09 Lymph % (Auto) 7.0 % 07/11/25 14:09 [place] % (Auto) 5.8 % 07/11/25 14:09 Eos % (Auto) 0.0 % 07/11/25 14:09 Baso % (Auto) 0.1 % 07/11/25 14:09 Neut # (Auto) 10.68 K/uL (1.40-6.50) H 07/11/25 14:09 Lymph # (Auto) 0.86 K/uL (1.20-3.40) L 07/11/25 14:09 [place] # (Auto) 0.71 K/uL (0.11-0.59) H 07/11/25 14:09 Eos # (Auto) 0.00 K/uL (0.00-0.50) 07/11/25 14:09 Baso # (Auto) 0.01 K/uL (0.00-0.20) 07/11/25 14:09 Immature Gran # (Auto) 0.07 K/uL (0.01-0.20) 07/11/25 14:09 PT 10.5 Seconds (9.0-12.0) 07/11/25 14:09 INR 1.0 (0.9-1.1) 07/11/25 14:09 Sodium 138 mmol/L (136-145) 07/11/25 14:09 Potassium 4.1 mmol/L (3.5-5.1) 07/11/25 14:09 Chloride 104 mmol/L (98-107) 07/11/25 14:09 Carbon Dioxide 29 mmol/L (21-32) 07/11/25 14:09 Anion Gap 5 (3-11) 07/11/25 14:09 BUN 21 mg/dl (6-23) 07/11/25 14:09 Creatinine 0.74 mg/dl (0.6-1.2) 07/11/25 14:09 Est Cr Clr Drug Dosing Not Reportable 07/11/25 14:09 eGFR 82.25 07/11/25 14:09 BUN/Creatinine Ratio 28.4 (10-20) H 07/11/25 14:09 Glucose 114 mg/dl (70-99(Fasting)) H 07/11/25 14:09 Calcium 9.6 mg/dl (8.6-10.3) 07/11/25 14:09 Total Bilirubin 0.7 mg/dl (0.2-1.0) 07/11/25 14:09 AST 11 U/L (13-39) L 07/11/25 14:09 ALT 3 U/L (7-52) L 07/11/25 14:09 Alkaline Phosphatase 125 U/L (34-104) H 07/11/25 14:09 Total Protein 6.4 gm/dl (6.0-8.3) 07/11/25 14:09 Albumin 3.7 gm/dl (3.4-5.0) 07/11/25 14:09 Globulin 2.7 gm/dl (2.5-4.0) 07/11/25 14:09 Albumin/Globulin Ratio 1.4 (0.9-2) 07/11/25 14:09 Urine Color Yellow 07/11/25 18:15 Urine Appearance Clear (Clear) 07/11/25 18:15 Urine pH 6.5 (4.5-7.5) 07/11/25 18:15 Ur Specific [place] 1.010 (1.000-1.030) 07/11/25 18:15 Urine Protein Negative (Negative) 07/11/25 18:15 Urine Glucose (UA) Negative (Negative) 07/11/25 18:15 Urine Ketones Negative (Negative) 07/11/25 18:15 Urine Blood Trace (Negative) H 07/11/25 18:15 Urine Nitrite Negative (Negative) 07/11/25 18:15 Urine Bilirubin Negative (Negative) 07/11/25 18:15 Urine Urobilinogen Negative (Negative) 07/11/25 18:15 Ur Leukocyte Esterase Trace (Negative) H 07/11/25 18:15 Urine WBC (Auto) 11-20 /hpf (0-5) H 07/11/25 18:15 Urine RBC (Auto) 0-2 /hpf (0-2) 07/11/25 18:15 U Hyaline Cast (Auto) 0-2 /lpf (0-2) 07/11/25 18:15 U Epithel Cells (Auto) 0-2 /hpf (0-2) 07/11/25 18:15 Urine Bacteria (Auto) 4+ (None Seen) H 07/11/25 18:15 Urine Comment 07/11/25 18:15 Impressions Lumbar Spine MRI 07/11/25 14:55 MRI LUMBAR SPINE WITHOUT CONTRAST TECHNIQUE: An MRI examination of the lumbar spine was performed. The examination consists of sagittal T1-weighted, inversion recovery and T2 weighted images as well as axial T1-weighted, T2-weighted and gradient echo images. INDICATION: Back pain COMPARISON: None. FINDINGS: Postoperative changes of L3-S1 posterior instrumented fusion with laminectomies are seen. No significant vertebral body height loss. There is a grade 1 anterolisthesis of L5 on S1. Mild retrolisthesis of L1 on L2. Bone marrow signal is unremarkable. In the laminectomy bed, there is a fluid collection, likely representing a postoperative seroma or hematoma measuring 3.0 x 3.0 x 6.5 cm (AP x TV x CC). This collection extends anteriorly into the spinal canal where it exerts mass effect upon the thecal sac resulting in its compression and effacement. There are multilevel degenerative changes of the lumbar spine as below: L1-2: Broad-based disc bulge with annular fissures, bilateral facet arthropathy and thickening of the ligamentum flavum. These changes result in moderate tricompartmental spinal canal stenosis, moderate to severe narrowing of the right and mild narrowing of the left neural foramina. L2-3: Broad-based disc bulge, bilateral facet arthropathy and thickening of the ligamentum flavum. These changes result in moderate to severe tricompartmental spinal canal stenosis and moderate to severe bilateral neural foraminal narrowing. L3-4: Postoperative changes as above. Broad-based disc bulge and bilateral facet arthropathy result in moderate to severe bilateral neural foraminal narrowing. L4-5: Postoperative changes as above. Broad-based disc bulge and bilateral facet arthropathy result in moderate to severe bilateral neural foraminal narrowing. L5-S1: Postoperative changes as above. Broad-based disc bulge with annular fissures and uncovering of the disc. Bilateral facet arthropathy. These changes result to severe bilateral neural foraminal narrowing. IMPRESSION: Postoperative changes of L3-S1 posterior instrumented fusion with laminectomies Advanced degenerative changes superiorly to the surgical site and advanced and neural foraminal narrowing persist at the surgical sites. Fluid collection in the laminectomy bed, likely representing a postoperative seroma or a hematoma measuring up to 6.5 cm in craniocaudal dimension, extends anteriorly into the spinal canal where it causes compression and effacement of the thecal sac. Electronically signed by Terrence Garcia 07-11-2025 5:40 PM Medications Administered Current Inpatient Medications Acetaminophen (Acetaminophen 500 Mg Tab) 1,000 mg PO Q8H PRN PRN Reason: MILD Pain Scale 1,2,3 & Pre PT Stop: 08/10/25 17:29 Amlodipine Besylate (Amlodipine Besylate 5 Mg Tab) 10 mg PO HS [facility] Stop: 08/10/25 20:59 Last Admin: 07/11/25 19:56 Dose: 10 mg Aspirin (Aspirin 81 Mg Ectab) 81 mg PO MoWeFr@0900 [facility] Stop: 08/11/25 08:59 Hydromorphone HCl (Hydromorphone Inj 0.5 Mg/0.5 Ml Syr) 0.5 mg IV Q3H PRN PRN Reason: MOD pain (scale 4-6) & Pre PT Stop: 07/25/25 17:29 Hydromorphone HCl (Hydromorphone Inj 1 Mg/Ml Syringe) 1 mg IV Q3H PRN PRN Reason: severe pain (scale 7-10) Stop: 07/25/25 17:29 Lactated Ringer's (Lr) 1,000 mls @ 75 mls/hr IV .[id number] [facility] Stop: 07/12/25 08:00 Last Admin: 07/11/25 17:30 Dose: 75 mls/hr Acetaminophen (Ofirmev) 1,000 mg in 100 mls @ 400 mls/hr IV Q8H PRN PRN Reason: Pain Rating 1-3 & Pre PT Stop: 07/12/25 17:30 Cefazolin Sodium (Ancef 2000mg) 2,000 mg in 15 mls @ 3.75 mls/min IV PREOP [facility]; Protocol Stop: 07/13/25 05:59 Promethazine HCl (Phenergan) 12.5 mg in 50.5 mls @ 202 mls/hr IV Q6H PRN PRN Reason: Nausea And Vomiting Stop: 08/10/25 17:29 Lorazepam (Lorazepam 0.5 Mg Tab) 0.5 mg PO Q8H PRN PRN Reason: sedation/anxiety Stop: 08/10/25 17:29 Lorazepam (Lorazepam 2 Mg/1 Ml Vial) 0.5 mg IV Q8H PRN PRN Reason: Sedation/Anxiety Stop: 08/10/25 17:29 Metoclopramide HCl (Metoclopramide Hcl Inj 5 Mg/Ml 2 Ml Vial) 10 mg IV Q6H PRN PRN Reason: Nausea &/or Vomiting Stop: 08/10/25 17:29 Miscellaneous (Remove Lidoderm Patch) 1 each N/A DAILY@2100 [facility] Stop: 08/10/25 20:59 Naloxone HCl (Naloxone Hcl 0.4 Mg/1 Ml Vial/Carp) 0.1 mg IV Q5M PRN PRN Reason: Oversedation/respiratory dep Stop: 08/10/25 17:29 Nystatin (Nystatin Susp 500,000 U/5 Ml Udc) 10 ml PO TID [facility] Stop: 07/21/25 20:59 Ondansetron HCl (Ondansetron Inj 2 Mg/Ml 2 Ml Vial) 4 mg IV Q6H PRN PRN Reason: Nausea &/or Vomiting Stop: 08/10/25 17:29 Ondansetron HCl (Ondansetron 4 Mg Od Tab) 4 mg PO Q6H PRN PRN Reason: Nausea Stop: 08/10/25 17:29 Oxycodone HCl (Oxycodone Hcl Ir 5 Mg Tab (Immediate Release)) 5 - 10 mg PO Q4H PRN PRN Reason: mod to severe pain Stop: 07/25/25 17:29 Last Admin: 07/11/25 19:57 Dose: 5 mg Pantoprazole Sodium (Pantoprazole 40 Mg Tab) 40 mg PO QAM [facility] Stop: 08/11/25 08:59 Zolpidem Tartrate (Zolpidem Tartrate 5 Mg Tab) 10 mg PO HS PRN PRN Reason: sleep Stop: 08/10/25 17:29
[2025-07-11] MEDS: NYSTATIN SUSP 500,000 U/5 ML UDC PO SCH (20:53)
[2025-07-11] MEDS: REMOVE LIDODERM PATCH SCH (21:08)
[2025-07-11] MEDS: HYDROmorphone INJ 0.5 MG/0.5 ML SYR IV PRN (23:50)
[2025-07-12 06:19] LABS: Hematocrit (blood only) 29.7 % (37.0-47.0); Hemoglobin 10.0 g/dl (12.0-16.0); Immature Granulocytes # (auto) 0.06 K/uL (0.01-0.20); Immature Granulocytes % (auto) 0.6 %; Mean Corpuscular Hemoglobin 30.7 pg (25.0-34.0); Mean Corpuscular Volume 91.1 fL (80.0-100.0); Platelet Count 279 K/uL (130-400); RDW Standard Deviation 41.8 fL (36.4-46.3); Red Blood Count 3.26 M/uL (4.20-5.40); White Blood Count 10.43 K/ul (4.8-10.8)
[2025-07-12] MEDS: HYDROmorphone INJ 1 MG/ML SYRINGE IV PRN (06:24)
[2025-07-12] MEDS: CALCIUM CARBONATE 500 MG CHEWABLE TAB PO STA (06:41)
--- NOTE | 2025-07-12 08:09 | History & Physical Report ---
Date of Service July 12, 2025 Assessment & Plan (1) Lumbar radiculopathy: Plan: MRI lumbar spine does confirm large fluid collection with encroachment on the thecal sac. Undoubtedly this is contributing to her back pain and radiculopathy. Subsequently recommending a urgent irrigation debridement of the lumbar spine in order to prevent continued functional loss and permanent deficits. Patient is n.p.o. and plan for surgery soon as possible. Admission and Anticipated Discharge Date Admission Date: July 11, 2025 History of Present Illness Chief Complaint: Worsening back and bilateral leg pain Primary Care Provider: Lenny Albert This is a 80-year-old female well-known to us status post lumbar decompression and fusion. She presents yesterday to our office in a wheelchair. She is having marked decline in status and ability to ambulate secondary to back and leg pain. Allergies Allergy/AdvReac Type Severity Reaction Status Date / Time No Known Allergies Allergy Verified 07/11/25 15:19 Home Medications Medication Instructions Recorded Confirmed Type acetaminophen 500 mg capsule 1,000 mg PO TID PRN Pain 06/21/25 07/11/25 History amlodipine 10 mg tablet 10 mg PO HS 06/21/25 07/11/25 History aspirin 81 mg capsule 81 mg PO [id number] 06/21/25 07/11/25 History baclofen 20 mg tablet 5 mg PO BID PRN Pain 06/21/25 07/11/25 History celecoxib 100 mg capsule (Celebrex) 100 mg PO HS 06/21/25 07/11/25 History cholecalciferol (vitamin D3) 125 125 mcg PO BID 06/21/25 07/11/25 History mcg (5,000 unit) tablet (Vitamin D3) dicyclomine 10 mg capsule 10 mg PO BID PRN Abdominal 06/21/25 07/11/25 History Discomfort gabapentin 100 mg tablet 100 mg PO HS 06/21/25 07/11/25 History ibuprofen 800 mg tablet 800 mg PO Q8H PRN Pain 06/21/25 07/11/25 History naproxen 375 mg tablet 375 mg PO BID PRN Pain 06/21/25 07/11/25 History omeprazole 20 mg tablet,delayed 20 mg PO QAM 06/21/25 07/11/25 History release prednisone 10 mg tablet 10 mg PO DAILY PRN Pain 06/21/25 07/11/25 History zolpidem 5 mg tablet (Ambien) 10 mg PO HS PRN sleep 06/21/25 07/11/25 History oxycodone-acetaminophen 5 mg-325 1 tab PO Q8H #30 tabs 06/29/25 07/11/25 Rx mg tablet (Percocet) tramadol 50 mg tablet 50 mg PO Q6H PRN pain, moderate 06/29/25 07/11/25 Rx #30 tabs cyclobenzaprine 10 mg tablet 5 mg (1/2 x 10 mg) PO Q8 PRN 07/01/25 07/11/25 Rx muscle spasm #20 tabs Past Med/Surg History Problem List (Updated 07/12/25 @ 08:08 by Del Abernathy DO) Lumbar radiculopathy History of lumbar surgery (Acute) Low back pain (Acute) Multilevel lumbosacral spondylosis with radiculopathy Encounter for pre-operative examination Medical History Acid reflux well controlled Neuropathy bilat feet /legs History of postoperative nausea and vomiting Slow to wake up after anesthesia Cystocele with prolapse mild prolapse Urinary incontinence IBS (irritable bowel syndrome) w/ diarrhea Low back pain HTN (hypertension) Surgical History Hx of bilateral cataract extraction Hx of colonoscopy History of foot surgery right - tarsal tunnel History of carpal tunnel release of both wrists Hx of parathyroidectomy removal of adenoma Hx of hysterectomy Social History Smoking Status: Never smoker Second Hand Exposure: Yes; Do You Dip or Chew Tobacco: No; Hx Alcohol Use: No Hx Substance Use: No Preferred Language: Azeri Communication Ability: Effective [place]ope [place] Required: No Beliefs That Will Affect Care: None Current Living Situation: Spouse Other Information That Helps Us Care for You: No Feels Safe at Home: Yes Safety Concerns: Feels Safe At This Time Assistive Devices: None Physical Exam Physical Exam: On exam she is in obvious distress. She has breakaway weakness to detailed testing lower extremity send secondary to pain. Marked difficulty with standing and ambulation secondary to radiculopathy. Results & Data Results & Data Vital Signs (Past 12 Hours) Vital Signs Temp Pulse Resp BP Pulse Ox O2 Del Method 07/12/25 07:55 36.9 C 94 H 16 171/78 H 95 Room Air 07/11/25 23:30 36.7 C 83 16 159/67 H 96 Room Air Code Status & VTE Plan VTE Prophylaxis Plan VTE Prophylaxis will be ordered: Yes
[2025-07-12] MEDS: ASPIRIN 81 MG ECTAB PO SCH (08:25)
[2025-07-12] MEDS ORDERED: ROCURONIUM BROMIDE 10 MG/ML 5 ML VIAL IV ONE (08:40)
[2025-07-12] MEDS ORDERED: PROPOFOL IV EMULSION 10 MG/ML 20 ML VIAL IV ONE (08:40)
[2025-07-12] MEDS ORDERED: DEXAMETHASONE SOD INJ 4 MG/ML VIAL ONE (08:40)
[2025-07-12] MEDS ORDERED: LIDOCAINE 2% 2 ML VIAL/AMP(20MG/ML) INFIL ONE (08:40)
[2025-07-12] MEDS ORDERED: NEOSTIGMINE METHYLSULFATE 1 MG/ML 10ML VIAL ONE (08:40)
[2025-07-12] MEDS ORDERED: ONDANSETRON INJ 2 MG/ML 2 ML VIAL ONE (08:40)
[2025-07-12] MEDS ORDERED: GLYCOPYRROLATE 0.2 MG/ML VIAL ONE (08:40)
[2025-07-12] MEDS ORDERED: MIDAZOLAM HCL 1 MG/ML 2ML VIAL ONE (08:41)
[2025-07-12] MEDS ORDERED: SUGAMMADEX SODIUM 200 MG/2 ML VIAL IV ONE ×2 (08:44→10:25)
[2025-07-12 09:00] LABS: Anion Gap 9.0 (3-11); Calcium 9.0 mg/dl (8.6-10.3); Carbon Dioxide 26.0 mmol/L (21-32); Chloride 103.0 mmol/L (98-107); Magnesium 1.8 mg/dl (1.7-2.4); Potassium 3.8 mmol/L (3.5-5.1); Sodium 138.0 mmol/L (136-145)
[2025-07-12] MEDS ORDERED: ASPIRIN 81 MG ECTAB PO SCH ×2 (09:00)
[2025-07-12 09:06] LABS: Blood Urea Nitrogen 15.0 mg/dl (6-23); Creatinine Clr Calc Pharmacy 58.5 ml/min; Glucose 113.0 mg/dl (70-99(Fasting))
--- NOTE | 2025-07-12 09:49 | Anesthesiology Consultation ---
Date of Service July 12, 2025 Assessment & Plan Chart Review Chart Review: Acceptable Risk for Surgery Consults Requested none History Surgery Operation Date: 07/12/25 07:00 Proposed Procedures p Incision and Drainage Lumbar - Del Abernathy DO Height/Weight Height: 5 ft 4 in Weight: 66.224 kg Allergies Allergy/AdvReac Type Severity Reaction Status Date / Time No Known Allergies Allergy Verified 07/11/25 15:19 Medications Home Medications Medication Instructions Recorded Confirmed Last Taken acetaminophen 500 mg capsule 1,000 mg PO TID PRN Pain 06/21/25 07/11/25 06/27/25 23:00 amlodipine 10 mg tablet 10 mg PO HS 06/21/25 07/11/25 07/10/25 aspirin 81 mg capsule 81 mg PO [id number] 06/21/25 07/11/25 06/26/25 09:00 baclofen 20 mg tablet 5 mg PO BID PRN Pain 06/21/25 07/11/25 07/11/25 10:00 celecoxib 100 mg capsule (Celebrex) 100 mg PO HS 06/21/25 07/11/25 07/10/25 cholecalciferol (vitamin D3) 125 125 mcg PO BID 06/21/25 07/11/25 07/10/25 mcg (5,000 unit) tablet (Vitamin D3) dicyclomine 10 mg capsule 10 mg PO BID PRN Abdominal 06/21/25 07/11/25 Unknown Discomfort gabapentin 100 mg tablet 100 mg PO HS 06/21/25 07/11/25 07/10/25 ibuprofen 800 mg tablet 800 mg PO Q8H PRN Pain 06/21/25 07/11/25 07/11/25 10:30 naproxen 375 mg tablet 375 mg PO BID PRN Pain 06/21/25 07/11/25 Unknown omeprazole 20 mg tablet,delayed 20 mg PO QAM 06/21/25 07/11/25 07/10/25 release prednisone 10 mg tablet 10 mg PO DAILY PRN Pain 06/21/25 07/11/25 06/21/25 09:00 zolpidem 5 mg tablet (Ambien) 10 mg PO HS PRN sleep 06/21/25 07/11/25 06/25/25 22:00 oxycodone-acetaminophen 5 mg-325 1 tab PO Q8H #30 tabs 06/29/25 07/11/25 07/11/25 10:00 mg tablet (Percocet) tramadol 50 mg tablet 50 mg PO Q6H PRN pain, moderate 06/29/25 07/11/25 Unknown #30 tabs cyclobenzaprine 10 mg tablet 5 mg (1/2 x 10 mg) PO Q8 PRN 07/01/25 07/11/25 Unknown muscle spasm #20 tabs Active Medications Generic Name Dose Route Start Last Admin Trade Name Freq PRN Reason Stop Dose Admin Amlodipine Besylate 10 mg 07/11/25 21:00 07/11/25 19:56 Amlodipine Besylate 5 Mg Tab PO 08/10/25 20:59 10 mg HS ELHAM Administration Aspirin 81 mg 07/12/25 09:00 07/12/25 08:25 Aspirin 81 Mg Ectab PO 08/11/25 08:59 81 mg [id number] ELHAM Administration Hydromorphone HCl 0.5 mg 07/11/25 17:30 07/11/25 23:50 Hydromorphone Inj 0.5 Mg/0.5 Ml Syr IV 07/25/25 17:29 0.5 mg Q3H PRN Administration MOD pain (scale 4-6) & Pre PT Hydromorphone HCl 1 mg 07/11/25 17:30 07/12/25 06:24 Hydromorphone Inj 1 Mg/Ml Syringe IV 07/25/25 17:29 1 mg Q3H PRN Administration severe pain (scale 7-10) Nystatin 10 ml 07/11/25 21:00 07/12/25 08:24 Nystatin Susp 500,000 U/5 Ml Udc PO 07/21/25 20:59 10 ml TID ELHAM Administration Oxycodone HCl 5 - 10 mg 07/11/25 17:30 07/12/25 02:55 Oxycodone Hcl Ir 5 Mg Tab (Immediate Release) PO 07/25/25 17:29 10 mg Q4H PRN Administration mod to severe pain Pantoprazole Sodium 40 mg 07/12/25 02:50 07/12/25 02:55 Pantoprazole 40 Mg Tab PO 08/11/25 02:49 40 mg QAM ELHAM Administration NPO Date Last Intake of Fluids: 07/11/25 Time Last Intake of Fluids: 23:00 Last Intake of Fluids Comment: sip of water 0830 w/med Date Last Intake of Solids: 07/11/25 Time Last Intake of Solids: 21:00 Past Medical History Medical History Acid reflux well controlled Neuropathy bilat feet /legs History of postoperative nausea and vomiting Slow to wake up after anesthesia Cystocele with prolapse mild prolapse Urinary incontinence IBS (irritable bowel syndrome) w/ diarrhea Low back pain HTN (hypertension) Past Surgical History Surgical History Hx of bilateral cataract extraction Hx of colonoscopy History of foot surgery right - tarsal tunnel History of carpal tunnel release of both wrists Hx of parathyroidectomy removal of adenoma Hx of hysterectomy Social History Smoking Status: Never smoker Do You Dip or Chew Tobacco: No Hx Alcohol Use: No Hx Substance Use: No substance use type: does not use Physical Exam Vital Signs Last Vital Signs Temp 36.6 C 07/12/25 09:30 Pulse 100 H 07/12/25 09:30 Resp 18 07/12/25 09:30 BP 146/80 H 07/12/25 09:30 Pulse Ox 95 07/12/25 09:30 O2 Del Method Room Air 07/12/25 09:30 Testing Laboratory Results 07/12/25 05:32 07/12/25 05:32 PT 10.5 Seconds (9.0-12.0) 07/11/25 14:09 INR 1.0 (0.9-1.1) 07/11/25 14:09 Urine Color Yellow 07/11/25 18:15 Urine Appearance Clear (Clear) 07/11/25 18:15 Urine pH 6.5 (4.5-7.5) 07/11/25 18:15 Ur Specific [place] 1.010 (1.000-1.030) 07/11/25 18:15 Urine Protein Negative (Negative) 07/11/25 18:15 Urine Glucose (UA) Negative (Negative) 07/11/25 18:15 Urine Ketones Negative (Negative) 07/11/25 18:15 Urine Nitrite Negative (Negative) 07/11/25 18:15 Ur Leukocyte Esterase Trace (Negative) H 07/11/25 18:15 Urine WBC (Auto) 11-20 /hpf (0-5) H 07/11/25 18:15 Urine RBC (Auto) 0-2 /hpf (0-2) 07/11/25 18:15 U Hyaline Cast (Auto) 0-2 /lpf (0-2) 07/11/25 18:15 U Epithel Cells (Auto) 0-2 /hpf (0-2) 07/11/25 18:15 Urine Bacteria (Auto) 4+ (None Seen) H 07/11/25 18:15
[2025-07-12] MEDS ORDERED: HYDROmorphone INJ 1 MG/ML SYRINGE IV PRN (09:50)
[2025-07-12] MEDS ORDERED: PROMETHAZINE HCL 6.25 MG in SODIUM CHLORIDE 0.9% 50 ML IV PRN (09:50)
[2025-07-12] MEDS ORDERED: ONDANSETRON INJ 2 MG/ML 2 ML VIAL IV PRN (09:50)
[2025-07-12] MEDS ORDERED: ATROPINE SULFATE 0.1 MG/ML 10ML SYR IV PRN (09:50)
[2025-07-12] MEDS: BUPIVACAINE/EPINEPHRINE 0.25% 1:200,000 30 ML VIAL ONE (10:15)
[2025-07-12] MEDS: ceFAZolin 330 MG/ML 1 GM VIAL ONE (10:20)
[2025-07-12] MEDS: GENTAMICIN SULFATE 40 MG/ML 2 ML VIAL ONE (10:27)
[2025-07-12] MEDS: VANCOMYCIN HCL 1000MG/20ML VIAL ONE (10:27)
--- NOTE | 2025-07-12 10:28 | Operative Report ---
Post Operative Report Pre & Post Diagnosis Operation Date: 07/12/25 07:00 Pre-Op Diagnosis: Lumbar epidural hematoma Post-Op Diagnosis: Same I identified the patient and participated in the time-out.: Yes Procedure Operation Date: 07/12/25 07:00 Actual Procedures Irrigation and debridement of the lumbar spine with evacuation of hematoma. Surgeon Del Abernathy, DO Safety Relief Valve Technician Amado Gómez Estimated Blood Loss 25 Findings Consistent with Post-Op Diagnosis Specimens Cultures of the epidural space Indications This is a 80-year-old female well-known to me the presents yesterday my office with a marked decline in status postoperatively. Markedly debilitating back and leg pain and inability ambulate. Urgent MRI was obtained confirming large lumbar epidural hematoma with encroachment on the thecal sac. Subsequently she is here for urgent decompression. Description of Procedure Patient was met with identified informed consent obtained. Patient was then taken to the operative suite underwent the patient placed in a prone position on the Kai table on top of the Tan[place] frame. All bony prominences well-padded eyes inspected to ensure no external pressure placed upon them. This point lumbar spine was prepped and draped in our sterile fashion. Utilizing the pr evious incision site sharp dissection was performed down to the fascial layer. The fascial layer was then released and a significant amount of sanguinous bloody fluid was released including a large blood clots in the epidural space. Cultures of the epidural space were obtained. Several liters of antibiotic solution were then copiously irrigated throughout the incision. The tissue appeared very healthy and the hardware in place. 15 round LANG drain was then inserted. The incision was then closed with 1 Vicryl fascia 2-0 Vicryl subcutaneously and 4 Monocryl for final skin closure. Steri-Strips and sterile dressing placed. Patient waken taken PACU stable condition. Please note Amado Ruffin was present during the procedure and for final skin closure. I attest to the content of the Intraoperative Record and any orders documented therein. Any exceptions are noted below.
[2025-07-12] MEDS ORDERED: DO NOT ADMINISTER PNEUMOCOCCAL VACCINE PRN (11:40)
[2025-07-12] MEDS ORDERED: DO NOT ADMINISTER FLU VACCINE PRN (11:40)
[2025-07-12] MEDS ORDERED: PROMETHAZINE 12.5 MG/50.5 ML BAG IV PRN (11:40)
[2025-07-12] MEDS ORDERED: LORazepam 0.5 MG TAB PO PRN (11:40)
[2025-07-12] MEDS ORDERED: ALUMINUM/MAGNESIUM SUSP 30 ML UDC PO PRN (11:40)
[2025-07-12] MEDS ORDERED: ONDANSETRON 4 MG OD TAB PO PRN (11:40)
[2025-07-12] MEDS ORDERED: METOCLOPRAMIDE HCL INJ 5 MG/ML 2 ML VIAL IV PRN (11:40)
[2025-07-12] MEDS ORDERED: SOD PHOSPHATE/SOD BIPHOSPHATE ENEMA 132 ML BTL PR PRN (11:40)
[2025-07-12] MEDS ORDERED: ACETAMINOPHEN 1,000 MG/100 ML VIAL IV PRN (11:40)
[2025-07-12] MEDS ORDERED: MAGNESIUM HYDROXIDE SUSP 30 ML UDC PO PRN (11:40)
[2025-07-12] MEDS ORDERED: NALOXONE HCL 0.4 MG/1 ML VIAL/CARP IV PRN (11:40)
[2025-07-12] MEDS ORDERED: diphenhydrAMINE Capsule 25 MG CAP PO PRN (11:40)
[2025-07-12] MEDS: LACTATED RINGER'S 1,000 ML IV SCH (11:45)
--- NOTE | 2025-07-12 12:42 | Anesthesiology Progress Note ---
Date of Service July 12, 2025 Anesthesia Post Procedure Vital Signs Vital Signs: Temp Pulse Pulse Pulse Resp BP BP 07/12/25 12:10 36.7 C 82 14 134/72 07/12/25 11:40 36.5 C 80 14 151/73 H 07/12/25 11:30 36.4 C L 79 17 147/61 H 07/12/25 11:20 83 12 144/57 H 07/12/25 11:10 82 19 141/59 H 07/12/25 11:00 88 16 146/61 H 07/12/25 10:52 36.3 C L 90 18 155/54 H 07/12/25 09:30 36.6 C 100 H 18 146/80 H 07/12/25 07:55 36.9 C 94 H 16 171/78 H 07/12/25 07:45 07/11/25 23:30 36.7 C 83 16 159/67 H 07/11/25 19:52 36.7 C 90 18 150/57 H 07/11/25 17:30 07/11/25 17:30 36.7 C 80 18 160/69 H 07/11/25 17:30 36.7 C 80 18 160/69 H 07/11/25 15:48 79 15 167/70 H 07/11/25 15:19 85 16 07/11/25 15:03 93 H 17 07/11/25 15:00 168/82 H 07/11/25 15:00 168/82 H 07/11/25 14:55 172/71 H 07/11/25 14:55 172/71 H 07/11/25 14:51 87 21 07/11/25 14:42 88 17 07/11/25 14:36 90 18 07/11/25 14:23 96 H 07/11/25 13:42 36.5 C 102 H 18 145/74 H BP Pulse Ox O2 Del Method O2 Flow Rate 07/12/25 12:10 95 Room Air 07/12/25 11:40 97 Room Air 07/12/25 11:30 98 Room Air 07/12/25 11:20 97 Room Air 07/12/25 11:10 99 Room Air 07/12/25 11:00 100 Oxymask 2 07/12/25 10:52 100 Oxymask 2 07/12/25 09:30 95 Room Air 07/12/25 07:55 95 Room Air 07/12/25 07:45 Room Air 07/11/25 23:30 96 Room Air 07/11/25 19:52 99 Room Air 07/11/25 17:30 Room Air 07/11/25 17:30 99 Room Air 07/11/25 17:30 99 Room Air 07/11/25 15:48 97 07/11/25 15:19 168/82 H 99 Room Air 07/11/25 15:03 99 07/11/25 15:00 07/11/25 15:00 07/11/25 14:55 07/11/25 14:55 07/11/25 14:51 95 07/11/25 14:42 97 07/11/25 14:36 96 07/11/25 14:23 07/11/25 13:42 99 Room Air Pain Intensity Back: Pain Intensity: 5 Transfer of Care Handoff Completed per policy Notes Mental Status: alert / awake / arousable and participated in evaluation Patient Amnestic to Procedure: Yes Nausea / Vomiting: adequately controlled Pain: adequately controlled Airway Patency, RR, SpO2: stable & adequate BP & HR: stable & adequate Hydration State: stable & adequate Anesthetic Complications: no major complications apparent
[2025-07-12] MEDS: ONDANSETRON INJ 2 MG/ML 2 ML VIAL IV PRN (12:56)
--- NOTE | 2025-07-12 14:18 | Hospitalist Progress Note ---
<Statement entered by Parish Rodriguez, DO - 07/12/25 16:55> I was available to AMELIE See below for details Date of Service July 12, 2025 Assessment & Plan (1) Multilevel lumbosacral spondylosis with radiculopathy: Plan: Cord Compression due to Post Op Seroma S/P lumbar decompression with bilateral medial facetectomies and foraminotomies L2-S1; posterior spinal fusion L3-S1; posterior segmental instrumentation L3-S1; interbody fusion L3-S1 with Dr. Abernathy on on 06/28/2025 Patient presenting from home for evaluation of increasing back pain, BL LE numbness, ambulatory dysfunction. Lumbar spine MRI showed: Fluid collection in the laminectomy bed, likely representing a postoperative seroma or a hematoma measuring up to 6.5 cm in craniocaudal dimension, extends anteriorly into the spinal canal where it causes compression and effacement of the thecal sac. POD#0 irrigation and debridement of the lumbar spine with evacuation of hematoma by Dr. Abernathy WBC 12K on admission -> 10.4K today, afebrile Continue empiric IV cefazolin Follow operative cultures obtained today (2) E. coli UTI: Plan: Urine culture + E. 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 Rodriguez. Thank you for this consultation. We will follow the patient with you during their hospital stay. You can [facility] via the [facility] role in [place] Text. Admission and Anticipated Discharge Date Admission Date: July 11, 2025 Subjective Follow-up for postop medical management, s/p lumbar epidural hematoma evacuation today by Dr. Abernathy. Patient seen and examined. Resting in bed. Recently returned from OR. Reports pain is well-controlled. Has numbness and tingling in the lower extremities which she reports was present prior to surgery. Physical Exam Constitutional: WD/WN, vitals as above no acute distress Respiratory: normal respiratory effort, lungs clear to auscultation Cardiovascular: Rate/Rhythm: regular rate and regular rhythm Vessels: normal peripheral pulses Extremities: no edema Musculoskeletal: S/p back surgery, strength strong and equal BLE, drain in place draining bloody drainage Skin: no rashes, warm and dry Neurologic: no focal motor deficits Psychiatric: A+Ox3, euthymic affect Results & Data Results & Data Vital Signs (Past 12 Hours) Vital Signs Temp Pulse Pulse Resp BP Pulse Ox O2 Del Method 07/12/25 14:10 36.4 C L 82 14 128/70 97 Room Air 07/12/25 13:10 36.7 C 78 14 136/73 94 Room Air 07/12/25 12:10 36.7 C 82 14 134/72 95 Room Air 07/12/25 11:40 36.5 C 80 14 151/73 H 97 Room Air 07/12/25 11:30 36.4 C L 79 17 147/61 H 98 Room Air 07/12/25 11:20 83 12 144/57 H 97 Room Air 07/12/25 11:10 82 19 141/59 H 99 Room Air 07/12/25 11:00 88 16 146/61 H 100 Oxymask 07/12/25 10:52 36.3 C L 90 18 155/54 H 100 Oxymask 07/12/25 09:30 36.6 C 100 H 18 146/80 H 95 Room Air 07/12/25 07:55 36.9 C 94 H 16 171/78 H 95 Room Air 07/12/25 07:45 Room Air O2 Flow Rate 07/12/25 14:10 07/12/25 13:10 07/12/25 12:10 07/12/25 11:40 07/12/25 11:30 07/12/25 11:20 07/12/25 11:10 07/12/25 11:00 2 07/12/25 10:52 2 07/12/25 09:30 07/12/25 07:55 07/12/25 07:45 Laboratory Results Short CBC 07/12/25 Range/Units 05:32 WBC 10.43 (4.8-10.8) K/ul Hgb 10.0 L (12.0-16.0) g/dl Hct 29.7 L (37.0-47.0) % Plt Count 279 (130-400) K/uL BMP 07/11/25 07/12/25 14:09 05:32 Sodium 138 138 Potassium 4.1 3.8 Chloride 104 103 Carbon Dioxide 29 26 BUN 21 15 Creatinine 0.74 0.73 Glucose 114 H 113 H Calcium 9.6 9.0 Liver Function 07/11/25 Range/Units 14:09 Total Bilirubin 0.7 (0.2-1.0) mg/dl AST 11 L (13-39) U/L ALT 3 L (7-52) U/L Alkaline Phosphatase 125 H (34-104) U/L Albumin 3.7 (3.4-5.0) gm/dl Urine 07/11/25 Range/Units 18:15 Urine Color Yellow Urine Appearance Clear (Clear) Urine pH 6.5 (4.5-7.5) Ur Specific [place] 1.010 (1.000-1.030) Urine Protein Negative (Negative) Urine Glucose (UA) Negative (Negative)
[2025-07-12] MEDS: FAMOTIDINE 20 MG TAB PO PRN (14:21)
[2025-07-12] MEDS: DOCUSATE SODIUM/SENNA 50/8.6MG TAB PO SCH (20:43)
[2025-07-12] MEDS: ACETAMINOPHEN 500 MG TAB PO PRN (20:43)
[2025-07-12] MEDS: CYCLOBENZAPRINE HCL 5 MG TAB PO PRN (21:43)
[2025-07-13] MEDS: POLYETHYLENE (MIRALAX) 17 GM PACK PO SCH (06:19)
[2025-07-13 06:37] LABS: Hematocrit (blood only) 29.9 % (37.0-47.0); Hemoglobin 9.8 g/dl (12.0-16.0); Immature Granulocytes # (auto) 0.06 K/uL (0.01-0.20); Immature Granulocytes % (auto) 0.5 %; Mean Corpuscular Hemoglobin 30.0 pg (25.0-34.0); Mean Corpuscular Volume 91.4 fL (80.0-100.0); Platelet Count 299 K/uL (130-400); RDW Standard Deviation 41.4 fL (36.4-46.3); Red Blood Count 3.27 M/uL (4.20-5.40); White Blood Count 11.05 K/ul (4.8-10.8)
[2025-07-13 06:51] LABS: Anion Gap 5.0 (3-11); Blood Urea Nitrogen 19.0 mg/dl (6-23); Calcium 9.3 mg/dl (8.6-10.3); Carbon Dioxide 29.0 mmol/L (21-32); Chloride 103.0 mmol/L (98-107); Creatinine Clr Calc Pharmacy 55.5 ml/min; Glucose 111.0 mg/dl (70-99(Fasting)); Potassium 4.2 mmol/L (3.5-5.1); Sodium 137.0 mmol/L (136-145)
--- NOTE | 2025-07-13 08:01 | Orthopedic Progress Note ---
Date of Service July 13, 2025 Assessment & Plan (1) Lumbar radiculopathy: Plan: At this time initiate physical therapy. She understands she is struggling with some trochanteric bursitis and IT band irritation. We discontinue her Carmona today. Pending her progress hopefully discharge home tomorrow. Admission and Anticipated Discharge Date Admission Date: July 11, 2025 Subjective Back and leg symptoms are markedly improved. Patient is up and ambulating. Physical Exam Physical Exam: Patient is in the chair at the bedside. Has good strength testing. Does have some tenderness palpation of the left IT band and trochanteric region. Results & Data Vital Signs (Past 12 Hours) Vital Signs Temp Pulse Resp BP Pulse Ox O2 Del Method 07/13/25 03:59 36.8 C 87 16 138/73 92 Room Air 07/12/25 23:00 36.9 C 98 H 16 124/74 95 Room Air
--- NOTE | 2025-07-13 10:01 | Hospitalist Progress Note ---
<Statement entered by Parish Rodriguez, - 07/13/25 16:56> patient seen and examined See below Date of Service July 13, 2025 Assessment & Plan (1) Multilevel lumbosacral spondylosis with radiculopathy: Plan: Patient presenting from home for evaluation of increasing back pain, BL LE numbness, ambulatory dysfunction. Had lumbar decompression with bilateral medial facetectomies and foraminotomies L2-S1; posterior spinal fusion L3-S1; posterior segmental instrumentation L3-S1; interbody fusion L3-S1 with Dr. Abernathy on on 06/28/2025. Now with back pain BLE numbness and pain, and ambulatory dysfunction. Lumbar spine MRI showed a fluid collection in the laminectomy bed, likely representing a postoperative seroma or a hematoma measuring up to 6.5 cm in craniocaudal dimension, extends anteriorly into the spinal canal where it causes compression and effacement of the thecal sac. Had irrigation and debridement of the lumbar spine with evacuation of hematoma procedure on 07/[address] Abernathy. #Cord Compression due to Post Op Seroma * POD#1 irrigation and debridement of the lumbar spine with evacuation of hematoma by Dr. Abernathy * Pain mostly to BLE; knee to groin; taking tylenol with some relief; flexeril d/c today; trialed baclofen as effective with iniital surgery * Hgb 9.8 today, LANG drain with sero-sang output, minimal output * WBC 12K on admission -> 10.43->11.05K today, afebrile * Continue empiric IV cefazolin * Preliminary Wound culture showing no growth * Encourage incentive spirometry, * PT eval completed today with rec for inpatient PT with home PT when discharged; assistance with OOB to standing needed; ambulating with rolling walker #Ecoli UTI * Urine culture + E. 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 Lenny Albert Dispo: Admit for additional PT and pain control; d/c plans to home with PT in home Thank you for this consultation. We will follow the patient with you during their hospital stay. You can reach a member of the [facility] Hospitalist Team 16/05 via the [facility] Hospitalist role in [place] Text. Patient seen in collaboration with Dr. Rodriguez. Please see addendum.I spent a total of 40 minutes coordinating, documenting and providing care for this patient excluding time spent in the performance of separately billed services or time spent by another provider/QHP. (2) E. coli UTI: Plan: re results (3) HTN (hypertension): Admission and Anticipated Discharge Date Admission Date: July 11, 2025 Subjective Patient seen and examined at bedside. She looked well, sitting in bedside chair and reporting pain to BLE, shooting, moving from knee to groin. Pain controlled with Acetaminophen, last given this morning. She is very concerned with antibiotic use post-operatively d/t current thrush in the mouth and history of vaginitis. She refused morning antibiotic because of fungal infections with use; she also refused Nystatin. We discussed the necessity of post-operative antibiotic use, especially following her I&D procedure yesterday and UTI. She is agreeable to continue Nystatin with swish and spit use. Reporting numbness and tingling to BLE that she says was present with last surgery as well. Had a bowel movement this morning and is urinating okay. Denies chills, night sweats, headache, chest pain, breathing difficulty, N/V/D, urinary symptoms, numbness/tingling to pelvic area, swelling, weakness. Review of Systems Review of Systems: All systems reviewed & are unremarkable except as noted in Subjective Physical Exam Physical Exam: VITALS: Reviewed. WEIGHT/BMI reviewed. GEN: Healthy appearing, well-developed, NAD. PSYCH: Good Judgment. AOx3. Normal memory, mood, and affect. HEENT -Head: NC/AT; -Eyes: PERRL, EOMI. No discharge or redn ess; -Ears: External ears are normal. -Nose: Normal nares. -Mouth and throat: MMM. Normal gums, muc lauryn, palate,. Good dentition. NECK: Supple, with no masses. CV: RRR, no m/r/g. LUNGS: CTAB, no w/r/c. ABD: Soft, NT/ND, NBS, no masses or organomegaly. : N/A SKIN: Warm, well perfused. Lumbar dressing clean. LANG drain intact with sero-sang drainage MSK: No deformities, Normal gait. Transferring w/ assist EXT: No clubbing, cyanosis, or edema. NEURO: Ambulating w/ walker with minimal assist. CN II-XII grossly intact. Strength 4/5 BLE. No focal deficits. Results & Data Results & Data Vital Signs (Past 12 Hours) Vital Signs Temp Pulse Resp BP BP Pulse Ox O2 Del Method 07/13/25 07:00 36.7 C 91 H 18 138/78 97 Room Air 07/13/25 03:59 36.8 C 87 16 138/73 92 Room Air 07/12/25 23:00 36.9 C 98 H 16 124/74 95 Room Air Laboratory Results Short CBC 07/13/25 Range/Units 05:48 WBC 11.05 H (4.8-10.8) K/ul Hgb 9.8 L (12.0-16.0) g/dl Hct 29.9 L (37.0-47.0) % Plt Count 299 (130-400) K/uL BMP 07/13/25 05:48 Sodium 137 Potassium 4.2 Chloride 103 Carbon Dioxide 29 BUN 19 Creatinine 0.77 Glucose 111 H Calcium 9.3
[2025-07-13] MEDS: FLUCONAZOLE 50 MG TAB PO ONE (13:31)
[2025-07-13] MEDS: BACLOFEN 20 MG TAB PO PRN (14:32)
[2025-07-13] MEDS: BACLOFEN 10 MG TAB PO PRN (22:58)
[2025-07-13 23:09] VITALS: RESP 16
[2025-07-14 06:57] LABS: Hematocrit (blood only) 30.3 % (37.0-47.0); Hemoglobin 10.1 g/dl (12.0-16.0); Mean Corpuscular Hemoglobin 31.0 pg (25.0-34.0); Mean Corpuscular Volume 92.9 fL (80.0-100.0); Platelet Count 297 K/uL (130-400); RDW Standard Deviation 44.3 fL (36.4-46.3); Red Blood Count 3.26 M/uL (4.20-5.40); White Blood Count 10.10 K/ul (4.8-10.8)
[2025-07-14 07:13] VITALS: PULSE 103; TEMP 98.1; O2SAT 94
[2025-07-14 07:23] LABS: Anion Gap 9.0 (3-11); Blood Urea Nitrogen 29.0 mg/dl (6-23); Calcium 9.5 mg/dl (8.6-10.3); Carbon Dioxide 27.0 mmol/L (21-32); Chloride 103.0 mmol/L (98-107); Creatinine Clr Calc Pharmacy 41.5 ml/min; Glucose 116.0 mg/dl (70-99(Fasting)); Potassium 3.8 mmol/L (3.5-5.1); Sodium 139.0 mmol/L (136-145)
[2025-07-14] MEDS: dexAMETHasone 8 MG in SYRINGE 0 ML IV STA (08:22)
--- NOTE | 2025-07-14 09:57 | Discharge Summary ---
Date of Service July 14, 2025 Admission HPI Per Admitting Provider This is a 80-year-old female well-known to us status post lumbar decompression and fusion. She presents yesterday to our office in a wheelchair. She is having marked decline in status and ability to ambulate secondary to back and leg pain. Principal Diagnosis Lumbar epidural hematoma Discharge Data Allergies Allergy/AdvReac Type Severity Reaction Status Date / Time No Known Allergies Allergy Verified 07/11/25 15:19 Consultations 07/11/25 14:56 ED Decision to Admit Stat 07/11/25 17:30 Consult Internal Medicine Routine Procedures Performed Operation Date: 07/12/25 07:00 Actual Procedures p Incision and Drainage Lumbar(Not Applicable) - Del Abernathy DO Ordered Studies 07/11/25 14:55 MR lumbar spine wo con Stat Hospital Course (1) Multilevel lumbosacral spondylosis with radiculopathy: Patient underwent evacuation of lumbar hematoma. Tolerated this well was taken orthopedic for postoperative. Postop patient progressed appropriately. LANG drain decreasing. Simply discharged home. Discharge orders instructions on the chart for further review. Total Time Total Time Spent Total Time Spent (In Minutes): 20 minutes Discharge Plan Discharge Items Patient Disposition: Home - Self-Care Reason For Visit: CAN'T WALK, PSOT SURGERY L3 L4 L5 Discharge Diagnosis: Postop lumbar hematoma Condition on Discharge: Fair Activity: As commented below Non-emergency contact: Primary Care Provider Call non-emergency contact if: you have any medication questions Follow-up/Referrals: Lenny Albert D.O. [Primary Care Provider] - Diet: Regular Addtl Attending Provider Instructions: ACTIVITY RECOMMENDATIONS: SELF CARE INSTRUCTIONS AFTER THORACIC/LUMBAR FUSIONS 1. You may walk to your tolerance. It is good exercise for your legs and back. Expect some back and intermittent leg aches and pains. 2. You may perform "counter-top" level activities (make a sandwich, sandrita with a project, etc.). 3. No bending or lifting of more than 10 pounds or back twisting of any nature (roll like a log when turning in bed). 4. You may ride in a car for 20-30 minutes at a time. No driving until after your first visit with your doctor. 5. Frequent changes of position and restricting sitting to 30 minutes at a time will help limit the amount of back spasms and stiffness you may experience. 6. You may discontinue the use of ambulatory aids (cane, crutches, etc.) once your strength and confidence allow. 7. You may machine coremaker the shower and let water strike your incision when you arrive home at least once daily. Do not take a tub bath, sit in a hot tub or go into a swimming pool until after your first recheck in the office. 8. You may resume previous diet. SPECIAL CARE INSTRUCTIONS: VERY IMPORTANT TO READ AND REVIEW A. Your surgical incision has been closed with a cosmetic suture under the skin that will dissolve in about 6 weeks. In 14 days, you can use a pair of clean scissors and cut the suture that is left outside of the skin at the ends of your incision. 1. The small skin tapes can be removed 7 days after surgery if they have not fallen off by that point. 2. You may keep the wound open to air as much as possible to promote healing after post-op day number 5 unless told otherwise by your doctor. 3. If you think the wound looks like it is becoming infected (redness or worsening drainage) and/or you are experiencing fever, chill or worsening back pain and muscle spasms, contact the office so that we may evaluate you as soon as possible. B. Complications are uncommon, but please contact us if you have any signs or symptoms of: 1. wound infection (fever higher than 102.5 degrees F, redness, separation of wound, drainage, or increasing pain from the incision) 2. blood clots in legs (pain, swelling, redness and warmth in legs) 3. urinary tract infection (fever higher than 102.5 degrees F, burning upon urination or increased frequency of urination) 4. nerve problems (inability to walk on your toes or heels, numbness, loss of bowel or bladder control) 5. any other symptoms that concern you C. Please call the office at if you have any concerns or questions about your operation or recovery. D. No smoking! Smoking drastically decreases the chance of a solid fusion. E. Do not take any anti-inflammatory medications (Indocin, Advil, Motrin, Aspirin, Naprosyn, etc.) as these may inhibit the chance of a solid fusion. Tylenol is okay to take for pain. MANAGING PAIN AFTER SPINAL SURGERY 1. Narcotic medication is intended for short-term use and will be provided for surgical pain. Surgical pain usually lasts for a period of 4-6 weeks. Narcotic medication includes Percocet, Vicodin, Darvocet, Tylenol #3 or Lortab. 2. Longer-term pain is more appropriately treated with non-narcotic medication such as Tylenol ES. 3. Muscle spasm is not appropriately treated with narcotics. Muscle relaxers such as Soma, Flexeril or Skelaxin can be used along with Tylenol ES. 4. Remember that we all live with some "aches and pains". This is not unusual or uncommon after an injury or as we get older. a. Back pain is expected and may include muscle spasms for 4 to 6 weeks after surgery. The pain should gradually improve. If the pain worsens for no apparent reason, please contact the office. b. Intermittent leg pain may also be experienced and should not be concerned about unless it worsens for no apparent reason. If so, please contact the office. 5. We will provide appropriate medication within the normal guidelines of their prescribed use. We will also be very cautious and aware of potential abuse and extended duration of patients' medication needs. a. Pain medications are for your comfort and to assist with sleep and rest so that the tissue can heal. They are not provided in order to return to normal activity and should not be used through the day. To do so or worsening pain at night can result from ongoing tissue damage and development of tolerance to the prescribed medicine. 6. Please allow 2-3 days to process refills. Prescriptions will not be mailed but must be picked up at the office. FOLLOW UP VISIT: Keep your scheduled follow-up appointment. Any questions, please call the office at . Pending Studies at Discharge: No Stand-Alone Forms: My [facility] [employer], Smoking Cessation Medications and DC Order Prescriptions: New oxycodone 5 mg tablet 5 mg PO Q6H PRN (Reason: pain) Qty: 30 0RF Continued prednisone 10 mg Tablet 10 mg PO DAILY PRN (Reason: Pain) baclofen 20 mg Tablet 5 mg PO BID PRN (Reason: Pain) amlodipine 10 mg Tablet 10 mg PO HS zolpidem [Ambien] 5 mg Tablet 10 mg PO HS PRN (Reason: sleep ) celecoxib [Celebrex] 100 mg Capsule 100 mg PO HS acetaminophen 500 mg Capsule 1,000 mg PO TID PRN (Reason: Pain) dicyclomine 10 mg Capsule 10 mg PO BID PRN (Reason: Abdominal Discomfort) gabapentin 100 mg Tablet 100 mg PO HS omeprazole 20 mg Tablet,Delayed Release (Dr/Ec) 20 mg PO QAM cholecalciferol (vitamin D3) [Vitamin D3] 125 mcg (5,000 unit) Tablet 125 mcg PO BID aspirin 81 mg Capsule 81 mg PO 3XWK tramadol 50 mg tablet 50 mg PO Q6H PRN (Reason: pain, moderate) Qty: 30 0RF oxycodone-acetaminophen [Percocet] 5-325 mg tablet 1 tab PO Q8H Qty: 30 0RF Rx Instructions: Oxycodone for severe pain tramadol for moderate pain cyclobenzaprine 10 mg Tablet 5 mg PO Q8 PRN (Reason: muscle spasm) Qty: 20 0RF Discontinued naproxen [Naprosyn] 375 mg Tablet 375 mg PO BID PRN (Reason: Pain) ibuprofen 800 mg Tablet 800 mg PO Q8H PRN (Reason: Pain) Discharge Orders: Discharge Order (Routine); Ordered 07/14/25 Ordered By: Del Abernathy Admission Data Admit Date/Time: 07/11/25 14:58 Attending Provider: Dle Abernathy Admit Provider: Del Abernathy Primary Care Provider: Lenny Albert Other Providers: Parish Rodriguez; Del Abernathy; Flora Wilson
[2025-07-14 10:11] VITALS: BP 138/73
--- NOTE | 2025-07-14 10:13 | Hospitalist Progress Note ---
<Statement entered by Parish Rodriguez, - 07/14/25 12:20> Patient seen and examined Some L prox thigh pain otherwise no complaints today Eager for dc home. Date of Service July 14, 2025 Assessment & Plan (1) Multilevel lumbosacral spondylosis with radiculopathy: Plan: Patient presenting from home for evaluation of increasing back pain, BL LE numbness, ambulatory dysfunction. Had lumbar decompression with bilateral medial facetectomies and foraminotomies L2-S1; posterior spinal fusion L3-S1; posterior segmental instrumentation L3-S1; interbody fusion L3-S1 with Dr. Abernathy on on 06/28/2025. Now with back pain BLE numbness and pain, and ambulatory dysfunction. Lumbar spine MRI showed a fluid collection in the laminectomy bed, likely representing a postoperative seroma or a hematoma measuring up to 6.5 cm in craniocaudal dimension, extends anteriorly into the spinal canal where it causes compression and effacement of the thecal sac. Had irrigation and debridement of the lumbar spine with evacuation of hematoma procedure on 07/[address] Abernathy. #Cord Compression due to Post Op Seroma * POD#2 irrigation and debridement of the lumbar spine with evacuation of hematoma by Dr. Abernathy * Pain mostly to left groin today; taking tylenol with some relief * Hgb 10.1 today, LANG drain mostly with scant sero-sang output * WBC 10K today, afebrile * Transitioned to po Keflex today with anticipated d/c to home today-> will continue additional 3 days * Preliminary Wound culture showing no growth * Encourage incentive spirometry, * PT cleared for d/c to home with home PT #Ecoli UTI * Urine culture + E. 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 Lenny Albert Dispo: Anticipate d/c to home today Thank you for this consultation. We will follow the patient with you during their hospital stay. You can reach a member of the [facility] Hospitalist Team 16/05 via the [facility] Hospitalist role in [place] Text. Patient seen in collaboration with Dr. Rodriguez. Please see addendum.I spent a total of 20 minutes coordinating, documenting and providing care for this patient excluding time spent in the performance of separately billed services or time spent by another provider/QHP. (2) E. coli UTI: Plan: re results (3) HTN (hypertension): Admission and Anticipated Discharge Date Admission Date: July 11, 2025 Subjective Patient seen and examined at bedside. She looked well, sitting in bedside chair and reporting pain to left groin. Pain controlled with Acetaminophen. Discussed transition to oral antibiotics today and anticipated d/c to home pending surgery eval today. LANG drain still intact and draining less than yesterday. Reporting numbness and tingling to BLE that she says was present with last surge ry as well. Had a bowel movement this morning and is urinating okay. Denies chills, night sweats, headache, chest pain, breathing difficulty, N/V/D, urinary symptoms, numbness/tingling to pelvic area, swelling, weakness. Review of Systems Review of Systems: All systems reviewed & are unremarkable except as noted in Subjective Physical Exam Physical Exam: VITALS: Reviewed. WEIGHT/BMI reviewed. GEN: Healthy appearing, well-developed, NAD. PSYCH: Good Judgment. AOx3. Normal memory, mood, and affect. HEENT -Head: NC/AT; -Eyes: PERRL, EOMI. No discharge or redn ess; -Ears: External ears are normal. -Nose: Normal nares. -Mouth and throat: MMM. Normal gums, muc lauryn, palate,. Good dentition. NECK: Supple, with no masses. CV: RRR, no m/r/g. LUNGS: CTAB, no w/r/c. ABD: Soft, NT/ND, NBS, no masses or organomegaly. : N/A SKIN: Warm, well perfused. Lumbar dressing clean. LANG drain intact with sero-sang drainage MSK: No deformities, Normal gait. Transferring w/ assist EXT: No clubbing, cyanosis, or edema. NEURO: Ambulating w/ walker with minimal assist. CN II-XII grossly intact. Strength 4/5 BLE. No focal deficits. Results & Data Results & Data Vital Signs (Past 12 Hours) Vital Signs Temp Pulse Resp BP BP Pulse Ox O2 Del Method 07/14/25 10:10 36.7 C 103 H 16 126/73 138/73 94 07/14/25 07:12 36.7 C 103 H 16 126/73 94 Room Air 07/13/25 23:07 36.6 C 88 16 129/56 L 98 Room Air
== END 2025-07-14 11:20 | disposition home or self-care (01) | DRG 908 ==
LOC: ED 13:41 → 3W 14:58

== ENCOUNTER 2025-07-18 17:14 | Inpatient (IN) ==
--- NOTE | 2025-07-18 17:33 | Emergency Department Note ---
Impression & Plan Closed sacral fracture, Post-operative pain, Abnormal CT scan, pelvis, Acute urinary retention, Anemia ED Provider Note NAME: ALEXIS CABALLERO AGE: 80 SEX: F : 1945 ARRIVES VIA: Walk-In INFORMANT: Patient, ED PROVIDER(S): Gasper Mcarthur DO CHIEF COMPLAINT: Back pain HPI: The patient is a 80-year-old female who presented to the emergency department for evaluation of back pain. The patient is postoperative spinal fusion. The patient had surgery earlier in the month. She also had a procedure a week ago for an evacuation of a hematoma. Over the course the last several days she has noticed worsening pain difficulty walking as well as difficulty urinating. She has noticed urinary incontinence and constipation. The patient has been taking the todk-tow-adoxngs pain medication as well as her prescription pain medication with only minimal relief of her symptoms. ROS: See above HPI for pertinent positives & negatives. A total of 10 systems reviewed and were otherwise negative. PAST MEDICAL HISTORY: See Below PAST SURGICAL HISTORY: See Below FAMILY HISTORY: See Below SOCIAL HISTORY: See Below HOME MEDICATIONS: See Below ALLERGIES: See Below VITALS: See Below PHYSICAL EXAMINATION: GENERAL: The patient is awake and alert. The patient is very anxious appearing. EYES: The conjunctivae are clear. The pupils are round and reactive. EARS, NOSE, MOUTH AND THROAT: The nose is without any evidence of any deformity. NECK: The neck is nontender and supple. RESPIRATORY: Normal respiratory effort is noted there is no evidence of wheezing rhonchi or rales CARDIOVASCULAR: Regular rate and rhythm noted there no murmurs rubs or gallops normal S1 normal S2. GASTROINTESTINAL: The abdomen is soft. Abdomen is nontender. BACK: Postoperative site was noted. There is no erythema drainage or dehiscence. Skin was clean appearing and not indurated. MUSCULOSKELETAL/EXTREMITIES: There is no evidence of gross deformity full range of motion is noted in the hips and shoulders. SKIN: There is no obvious evidence of any rash. There are no petechiae, pallor or cyanosis noted. NEUROLOGIC: Patient is awake alert and oriented x3 strength is symmetric patellar reflexes are 1+ bilaterally. Great toe raise was symmetric. Achilles tendon reflexes were 1+ bilaterally. MEDICAL DECISION MAKING: The patient is a 80-year-old female who presented to the emergency department for an evaluation of back pain. The patient is status post lumbar surgery. She also had to go back to the operating room a few weeks later for evacuation of a seroma/hematoma. The patient states over the last few days she has had worsening back pain as well as hip pain. The patient denies any trauma. The patient had an MRI of her lumbar spine. She could not have contrast due to her previous reaction. This MRI appears to be consistent with a possible sacral fracture. I discussed the patient's MRI with the radiologist and they recommend CAT scan. CAT scan was obtained and does appear to show sacral fracture but also a possible mass in the colon. This will require further workup. The patient has no abdominal tenderness. I doubt this is diverticulitis. Given the patient's degree of pain as well as her urinary retention I discussed her condition with the on-call [facility]. They have agreed to evaluate the patient in the emergency department. Triage Nursing notes reviewed. Prior medical records reviewed Vital Signs: reviewed and remarkable for no significant abnormalities Differential diagnosis: Musculoskeletal, disc herniation, fracture, metastatic disease, cord compression, discitis, sciatica, cauda equina, infection, aortic disease, renal colic, gastrointestinal, as well as other pathologies. ER treatment provided: See below Diagnostics interpreted by me: ECG: none Cardiac Monitoring: An order was placed for continuous cardiac monitoring. The monitor shows a rate of 90 bpm with sinus rhythm Laboratory studies: As stated above and show below. Imaging studies: See below. Radiographic imaging was reviewed by myself Consultation(s): I discussed this case with Dr. Macedo who is on-call for the [facility] group. Past Med/Surg History Problem List (Updated 07/18/25 @ 22:33 by Gasper Mcarthur DO) Anemia (Acute) Acute urinary retention (Acute) Abnormal CT scan, pelvis (Acute) Post-operative pain (Acute) Closed sacral fracture (Acute) E. coli UTI Lumbar radiculopathy History of lumbar surgery (Acute) Low back pain (Acute) Multilevel lumbosacral spondylosis with radiculopathy Encounter for pre-operative examination Medical History Acid reflux well controlled Neuropathy bilat feet /legs History of postoperative nausea and vomiting Slow to wake up after anesthesia Cystocele with prolapse mild prolapse Urinary incontinence IBS (irritable bowel syndrome) w/ diarrhea Low back pain HTN (hypertension) Surgical History Hx of bilateral cataract extraction Hx of colonoscopy History of foot surgery right - tarsal tunnel History of carpal tunnel release of both wrists Hx of parathyroidectomy removal of adenoma Hx of hysterectomy Social History Smoking Status: Never smoker Second Hand Exposure: Yes; Do You Dip or Chew Tobacco: No; Hx Alcohol Use: No Hx Substance Use: No Preferred Language: Japanese Communication Ability: Effective [employer] Claims Examiner Required: No Beliefs That Will Affect Care: None Current Living Situation: Spouse Feels Safe at Home: Yes Assistive Devices: Walker Allergies Allergies Allergy/AdvReac Type Severity Reaction Status Date / Time No Known Allergies Allergy Verified 07/18/25 20:27 Home Meds Home Medications Medication Instructions Recorded Confirmed acetaminophen 500 mg capsule 1,000 mg PO TID PRN Pain 06/21/25 07/18/25 amlodipine 10 mg tablet 10 mg PO HS 06/21/25 07/18/25 aspirin 81 mg capsule 81 mg PO 3XWK 06/21/25 07/18/25 cholecalciferol (vitamin D3) 125 250 mcg PO DAILY 06/21/25 07/18/25 mcg (5,000 unit) tablet (Vitamin D3) dicyclomine 10 mg capsule 10 mg PO BID PRN Abdominal 06/21/25 07/18/25 Discomfort gabapentin 100 mg tablet 100 mg PO TID 06/21/25 07/18/25 ibuprofen 800 mg tablet 800 mg PO Q8H PRN Pain 06/21/25 07/18/25 naproxen 375 mg tablet 375 mg PO BID PRN Pain 06/21/25 07/18/25 omeprazole 20 mg tablet,delayed 20 mg PO QAM 06/21/25 07/18/25 release zolpidem 5 mg tablet (Ambien) 10 mg PO HS PRN sleep 06/21/25 07/18/25 baclofen 20 mg tablet 20 mg PO TID PRN MUSCLE SPASMS 07/18/25 07/18/25 Previous Rx's Medication Instructions Recorded oxycodone-acetaminophen 5 mg-325 1 tab PO Q8H #30 tabs 06/29/25 mg tablet (Percocet) tramadol 50 mg tablet 50 mg PO Q6H PRN pain, moderate 06/29/25 #30 tabs cyclobenzaprine 10 mg tablet 5 mg (1/2 x 10 mg) PO Q8 PRN 07/01/25 muscle spasm #20 tabs oxycodone 5 mg tablet 5 mg PO Q6H PRN pain #30 tabs 07/13/25 Results & Data (ED) Vital Signs Vital Signs - 24 hr 07/18/25 17:19 07/18/25 17:32 07/18/25 17:34 Temperature 36.5 C Temperature Source Temporal Artery Scan Pulse Rate 104 H Pulse Rate [Finger] 102 H Respiratory Rate 18 20 Respiratory Effort / Characteristics Non-Labored Spontaneous Respiratory Depth Normal Respiratory Pattern Regular Blood Pressure 145/72 H Blood Pressure [Right Arm] 149/96 H Blood Pressure Mean 96 Blood Pressure Mean [Right Arm] 113 Pulse Oximetry 97 98 98 Oxygen Delivery Method Room Air Room Air Room Air Sepsis Recent Fever Within 48 Hours No Sepsis New/Unexplained Change in Mental Status N/A Sepsis Action Taken by Nursing No Action Required 07/18/25 17:57 07/18/25 19:56 07/18/25 21:04 Temperature Temperature Source Pulse Rate 102 H Pulse Rate [Finger] 93 H 90 Respiratory Rate 20 20 Respiratory Effort / Characteristics Respiratory Depth Respiratory Pattern Blood Pressure Blood Pressure [Right Arm] 159/73 H 161/76 H Blood Pressure Mean Blood Pressure Mean [Right Arm] 101 104 Pulse Oximetry 95 93 Oxygen Delivery Method Room Air Room Air Sepsis Recent Fever Within 48 Hours Sepsis New/Unexplained Change in Mental Status Sepsis Action Taken by Detention Medications Current Medication List: was personally reviewed by me Laboratory Data Attestation: I reviewed the patient's lab results. 07/18/25 17:40 07/18/25 17:40 Lab Results 07/18/25 07/18/25 Range/Units 17:40 19:01 WBC 9.81 (4.8-10.8) K/ul RBC 3.22 L (4.20-5.40) M/uL Hgb 9.5 L (12.0-16.0) g/dl Hct 29.6 L (37.0-47.0) % MCV 91.9 (80.0-100.0) fL MCH 29.5 (25.0-34.0) pg MCHC 32.1 (32.0-36.0) g/dL RDW Std Deviation 42.5 (36.4-46.3) fL RDW Coeff of Karen 12.7 (11.5-14.5) % Plt Count 283 (130-400) K/uL MPV 8.8 L (9.4-12.4) fL Immature Gran % (Auto) 0.6 % Neut % (Auto) 81.2 % Lymph % (Auto) 12.5 % Gregory % (Auto) 5.5 % Eos % (Auto) 0.0 % Baso % (Auto) 0.2 % Neut # (Auto) 7.96 H (1.40-6.50) K/uL Lymph # (Auto) 1.23 (1.20-3.40) K/uL Gregory # (Auto) 0.54 (0.11-0.59) K/uL Eos # (Auto) 0.00 (0.00-0.50) K/uL Baso # (Auto) 0.02 (0.00-0.20) K/uL Immature Gran # (Auto) 0.06 (0.01-0.20) K/uL Sodium 138 (136-145) mmol/L Potassium 3.8 (3.5-5.1) mmol/L Chloride 105 (98-107) mmol/L Carbon Dioxide 26 (21-32) mmol/L Anion Gap 7 (3-11) BUN 21 (6-23) mg/dl Creatinine 0.79 (0.6-1.2) mg/dl Est Cr Clr Drug Dosing 53.9 ml/min eGFR 76.04 BUN/Creatinine Ratio 26.6 H (10-20) Glucose 118 H (70-99(Fasting)) mg/dl Calcium 9.3 (8.6-10.3) mg/dl Total Bilirubin 0.6 (0.2-1.0) mg/dl AST 11 L (13-39) U/L ALT < 3 L (7-52) U/L Alkaline Phosphatase 159 H (34-104) U/L C-Reactive Protein 10.80 H (0-0.5) mg/dl Total Protein 6.3 (6.0-8.3) gm/dl Albumin 3.6 (3.4-5.0) gm/dl Globulin 2.7 (2.5-4.0) gm/dl Albumin/Globulin Ratio 1.3 (0.9-2) Lipase 9 L (11-82) U/L Procalcitonin 0.13 (0-0.5) ng/ml Urine Color Yellow Urine Appearance Clear (Clear) Urine pH 7.0 (4.5-7.5) Ur Specific [place] 1.016 (1.000-1.030) Urine Protein Negative (Negative) Urine Glucose (UA) Negative (Negative) Urine Ketones Negative (Negative) Urine Blood 1+ H (Negative) Urine Nitrite Negative (Negative) Urine Bilirubin Negative (Negative) Urine Urobilinogen Positive H (Negative) Ur Leukocyte Esterase Negative (Negative) Urine WBC (Auto) 0-5 (0-5) /hpf Urine RBC (Auto) 6-10 H (0-2) /hpf U Hyaline Cast (Auto) 0-2 (0-2) /lpf U Epithel Cells (Auto) 0-2 (0-2) /hpf Urine Bacteria (Auto) None Seen (None Seen) Urine Comment Administered Medications Morphine Sulfate (Morphine Sulfate 4 Mg/Ml 1 Ml Carp\Vial) 4 mg IV Q15M PRN PRN Reason: Pain Stop: 08/01/25 17:29 Last Admin: 07/18/25 19:03 Dose: 4 mg Documented By: REYMUNDO Discontinued Medications Sodium Chloride (Nss) 500 mls @ 999 mls/hr IV .Q31M STA Stop: 07/18/25 18:00 Last Infusion: 07/18/25 19:03 Dose: Infused Documented By: Admin: 07/18/25 18:15 Dose: 999 mls/hr Documented By: REYMUNDO Acetaminophen (Ofirmev) 1,000 mg in 100 mls @ 400 mls/hr IV NOW STA Stop: 07/18/25 21:21 Last Infusion: 07/18/25 21:49 Dose: Infused Documented By: Admin: 07/18/25 21:11 Dose: 400 mls/hr Documented By: REYMUNDO Ondansetron HCl (Ondansetron Inj 2 Mg/Ml 2 Ml Vial) 4 mg IV NOW STA Stop: 07/18/25 17:31 Last Admin: 07/18/25 19:03 Dose: 4 mg Documented By: REYMUNDO Imaging Data Attestation: I personally reviewed and interpreted this imaging study as follows: My Impression: MRI of the lumbar spine was obtained in the emergency department. My interpretation is fluid noted in the postoperative bed, final report below. Radiologist's Impression: Lumbar Spine MRI 07/18/25 17:30 Exam: MR lumbar spine without contrast. History: Unable to ambulate with recent surgeries. Comparison: July 11, 2025. Technique: Routine multiplanar multisequence MR images of the lumbar spine without intravenous contrast. Findings: In keeping with previous exam the lowest fully formed intervertebral disc will be labeled L5-S1 for purposes of this dictation. Marrow signal demonstrates susceptibility artifact consistent with bilateral pedicle screws, transverse fixation and vertical fixation rods spanning L3-S1. Interbody grafts at these levels are noted. Laminectomies at these levels are noted. Findings are similar to prior study. There is a interval transverse fairly well-defined slightly serpiginous T1 hypointense and increased fluid sensitive signal focus at the level of the mid S1 vertebral body. This is seen on the sagittal series. Axial series does not include this level. There is mild ventral translation and an element of kyphosis at this level. Adjacent decreased T1 and increased fluid-sensitive signal of the vertebral body at this level is noted. Slight presacral edematous changes. No drainable presacral fluid collection. There is mild stepwise retrolisthesis of the upper lumbar spine. Persistent grade 1 anterolisthesis L5 on S1. Intervertebral disc demonstrate fluid at the level of the L1-L2 intervertebral disc. This is similar to prior study. Endplate cortices appear to be intact. Mild multilevel endplate osteophytes are noted. Conus terminates at the L1 level. Normal signal and caliber. Axial series demonstrate [id number]: L1-L2 level demonstrates mild uncovering of the intervertebral disc. Mild elements of decreased T1 and T2 signal along the ventral extradural spinal canal slightly asymmetric to the left is noted. This is difficult to appreciate with certainty on the sagittal series. Findings are similar to prior exam. Suspect partial volume averaging with the associated disc. At least mild bilateral neural foramina narrowing. L2-L3 level demonstrates facet arthropathy changes. Uncovering of the intervertebral disc with moderate spinal canal stenosis. Partial laminectomy changes at this level are noted. Difficulty appreciating significant interval change when compared to prior exam. Moderate bilateral foraminal stenoses. L3-L4 level demonstrates left paracentral disc protrusion. Laminectomy changes are noted. Moderate bilateral foraminal stenoses left greater than right. Copious thecal sac volume is noted. Previously described laminectomy bed fluid collection significantly reduced in volume. L4-L5 level demonstrates laminectomy changes with copious thecal sac volume. At least moderate bilateral foraminal stenoses left greater than right. Previously described portion of the laminectomy bed fluid collection significantly decreased in size when compared to prior study. L5-S1 level demonstrates uncovering of the intervertebral disc. Laminectomy changes are noted. Thecal sac volume is fairly well-maintained. Moderate to marked bilateral foraminal stenoses. Include retroperitoneal structures demonstrate likely benign left renal cysts. Fluid collection along the superficial midline incision not entirely included on this exam. Included components. Be similar to prior study. Suspect seroma. Paraspinous musculature demonstrate increased fluid-sensitive signal consistent with inflammatory changes likely postintervention. Impression: 1. Interval transversely oriented small fluid signal intensity collection at the level of the S1 vertebral body with associated marrow edematous changes and mild anterior translation and subtle focal kyphosis. This is only included on the sagittal series. Findings most worrisome for fracture. Etiology is uncertain. Infectious process is not excluded. Recommend clinical correlation, CT evaluation and contrast-enhanced MRI evaluation. 2. Stable appearing lumbosacral fusion susceptibility changes. Previously described laminectomy bed fluid collection significantly decreased in size when compared to prior exam. Suspect resolving seroma. Additional likely midline incision seroma is noted. Difficulty appreciating significant interval change. 3. Advanced multilevel degenerative changes with significant foraminal stenoses. Please see above for details. Electronically signed by Lb Cotton 07-18-2025 8:[address] 07/18/25 20:29 Exam(s): CT L SPINE EXAM: CT Lumbar Spine Without Intravenous Contrast CLINICAL HISTORY: Reason for exam: post op pain. TECHNIQUE: Axial computed tomography images of the lumbar spine without intravenous contrast. CTDI is 35.1 mGy and DLP is 988.13 mGy-cm. Automated exposure control was utilized for the study. A dose lowering technique was utilized adhering to the principles of ALARA. COMPARISON: No relevant prior studies available. FINDINGS: Vertebrae: Fractures of the bilateral sacral ala with a transverse component of the level of S1. L3-S1 posterior decompression and instrumented fusion with a pedicle screw and gabino construct and multilevel disc spacers. Degenerative disc disease at L1-L2 and L2-L3. Soft tissues: Unremarkable. IMPRESSION: Fractures of the bilateral sacral ala with a transverse component of the level of S1. Electronically signed by: Odin Burkett MD 07/18/25 21:[address] 07/18/25 20:29 Exam(s): CT PELVIS Without Contrast EXAM: CT Pelvis Without Intravenous Contrast CLINICAL HISTORY: Reason for exam: pain. TECHNIQUE: Axial computed tomography images of the pelvis without intravenous contrast. CTDI is 35.1 mGy and DLP is 988.13 mGy-cm. Automated exposure control was utilized for the study. A dose lowering technique was utilized adhering to the principles of ALARA. COMPARISON: No relevant prior studies available. FINDINGS: Bowel: Mucosal thickening in the sigmoid colon, diverticulitis versus mucosal mass. Intraperitoneal space: Unremarkable. No free air. No significant fluid collection. Bladder: Carmona catheter in the bladder which is decompressed. Reproductive: Hysterectomy. Bones/joints: Fractures of the bilateral sacral ala with a transverse component of the level of S1. Osteopenia. Mild degenerative changes in the hips. Postsurgical hardware within the lumbosacral spine. No dislocation. Soft tissues: Unremarkable. IMPRESSION: 1. Fractures of the bilateral sacral ala with a transverse component of the level of S1. 2. Mucosal thickening in the sigmoid colon, diverticulitis versus mucosal mass. Correlate clinically and consider colonoscopy. Electronically signed by: Odin Burkett MD 07/18/25 21:[address] 07/18/25 20:32 Exam(s): CT LEFT HIP Without Contrast EXAM: CT Left Lower Extremity Without Intravenous Contrast, Hip CLINICAL HISTORY: Reason for exam: pain. TECHNIQUE: Axial computed tomography images of the left hip without intravenous contrast. CTDI is 35.1 mGy and DLP is 988.13 mGy-cm. Automated exposure control was utilized for the study. A dose lowering technique was utilized adhering to the principles of ALARA. COMPARISON: No relevant prior studies available. FINDINGS: Bones/joints: No acute fracture or malalignment. No joint effusion. Mild degenerative changes in the left hip. Soft tissues: Atrophy of the left gluteus muscles. Bladder: Carmona catheter within the bladder. IMPRESSION: No acute fracture or malalignment. Electronically signed by: Odin Burkett MD 07/18/25 21:52 PM Discharge Plan Visit Data Chief Complaint: Referred by Doctor Stated Complaint: SURGERY LOWER BACK PAIN DOC REFERRAL ED Provider: Gasper Mcarthur Discharge Problem: Closed sacral fracture, Post-operative pain, Abnormal CT scan, pelvis, Acute urinary retention, Anemia Patient Disposition: Being Evaluated by Hospitalist Condition: Fair Forms Stand Alone Forms: [facility] Prescriptions Prescriptions: No Action baclofen 20 mg tablet 20 mg PO TID PRN (Reason: MUSCLE SPASMS) Patient Comments: PT REPORTS TAKING 1/2 TABLET NEEDED. FULL TABLET MAKES HER SLEEPY naproxen [Naprosyn] 375 mg Tablet 375 mg PO BID PRN (Reason: Pain) ibuprofen 800 mg Tablet 800 mg PO Q8H PRN (Reason: Pain) amlodipine 10 mg Tablet 10 mg PO HS zolpidem [Ambien] 5 mg Tablet 10 mg PO HS PRN (Reason: sleep ) acetaminophen 500 mg Capsule 1,000 mg PO TID PRN (Reason: Pain) dicyclomine 10 mg Capsule 10 mg PO BID PRN (Reason: Abdominal Discomfort) gabapentin 100 mg Tablet 100 mg PO TID omeprazole 20 mg Tablet,Delayed Release (Dr/Ec) 20 mg PO QAM cholecalciferol (vitamin D3) [Vitamin D3] 125 mcg (5,000 unit) Tablet 250 mcg PO DAILY aspirin 81 mg Capsule 81 mg PO 3XWK Rx Instructions: MWF tramadol 50 mg tablet 50 mg PO Q6H PRN (Reason: pain, moderate) Qty: 30 0RF oxycodone-acetaminophen [Percocet] 5-325 mg tablet 1 tab PO Q8H Qty: 30 0RF Rx Instructions: Oxycodone for severe pain tramadol for moderate pain cyclobenzaprine 10 mg Tablet 5 mg PO Q8 PRN (Reason: muscle spasm) Qty: 20 0RF oxycodone 5 mg tablet 5 mg PO Q6H PRN (Reason: pain) Qty: 30 0RF Referrals Referrals: Lenny Albert D.O. [Primary Care Provider] -
[2025-07-18 17:57] LABS: Hematocrit (blood only) 29.6 % (37.0-47.0); Hemoglobin 9.5 g/dl (12.0-16.0); Immature Granulocytes # (auto) 0.06 K/uL (0.01-0.20); Immature Granulocytes % (auto) 0.6 %; Mean Corpuscular Hemoglobin 29.5 pg (25.0-34.0); Mean Corpuscular Volume 91.9 fL (80.0-100.0); Platelet Count 283 K/uL (130-400); RDW Standard Deviation 42.5 fL (36.4-46.3); Red Blood Count 3.22 M/uL (4.20-5.40); White Blood Count 9.81 K/ul (4.8-10.8)
[2025-07-18] MEDS: SODIUM CHLORIDE 0.9% 500 ML IV STA (18:15)
[2025-07-18 18:18] LABS: Anion Gap 7 (3-11); Blood Urea Nitrogen 21 mg/dl (6-23); Calcium 9.3 mg/dl (8.6-10.3); Carbon Dioxide 26 mmol/L (21-32); Chloride 105 mmol/L (98-107); Creatinine Clr Calc Pharmacy 53.9 ml/min; Glucose 118 mg/dl (70-99(Fasting)); Potassium 3.8 mmol/L (3.5-5.1); Sodium 138 mmol/L (136-145)
[2025-07-18 18:20] LABS: Alanine Aminotransferase < 3 U/L (7-52); Albumin Globulin Ratio 1.3 (0.9-2); Albumin Level 3.6 gm/dl (3.4-5.0); Alkaline Phosphatase 159 U/L (34-104); Bilirubin,Total 0.6 mg/dl (0.2-1.0); Globulin 2.7 gm/dl (2.5-4.0); Lipase 9 U/L (11-82); Total Protein 6.3 gm/dl (6.0-8.3)
[2025-07-18] MEDS: MoRPHine SULFATE 4 MG/ML 1 ML CARP\\VIAL IV PRN (19:03)
[2025-07-18] MEDS: ONDANSETRON INJ 2 MG/ML 2 ML VIAL IV STA (19:03)
[2025-07-18 19:18] LABS: Appearance Urine Clear (Clear); Bacteria Urine Automated None Seen (None Seen); Cast Urine Automated 0-2 /lpf (0-2); Epithelial Cell Urine Auto 0-2 /hpf (0-2); Glucose Urine UA Negative (Negative); WBC Urine Automated 0-5 /hpf (0-5)
--- NOTE | 2025-07-18 20:21 | Magnetic Resonance Report ---
Exam: MR lumbar spine without contrast. History: Unable to ambulate with recent surgeries. Comparison: July 11, 2025. Technique: Routine multiplanar multisequence MR images of the lumbar spine without intravenous contrast. Findings: In keeping with previous exam the lowest fully formed intervertebral disc will be labeled L5-S1 for purposes of this dictation. Marrow signal demonstrates susceptibility artifact consistent with bilateral pedicle screws, transverse fixation and vertical fixation rods spanning L3-S1. Interbody grafts at these levels are noted. Laminectomies at these levels are noted. Findings are similar to prior study. There is a interval transverse fairly well-defined slightly serpiginous T1 hypointense and increased fluid sensitive signal focus at the level of the mid S1 vertebral body. This is seen on the sagittal series. Axial series does not include this level. There is mild ventral translation and an element of kyphosis at this level. Adjacent decreased T1 and increased fluid-sensitive signal of the vertebral body at this level is noted. Slight presacral edematous changes. No drainable presacral fluid collection. There is mild stepwise retrolisthesis of the upper lumbar spine. Persistent grade 1 anterolisthesis L5 on S1. Intervertebral disc demonstrate fluid at the level of the L1-L2 intervertebral disc. This is similar to prior study. Endplate cortices appear to be intact. Mild multilevel endplate osteophytes are noted. Conus terminates at the L1 level. Normal signal and caliber. Axial series demonstrate [id number]: L1-L2 level demonstrates mild uncovering of the intervertebral disc. Mild elements of decreased T1 and T2 signal along the ventral extradural spinal canal slightly asymmetric to the left is noted. This is difficult to appreciate with certainty on the sagittal series. Findings are similar to prior exam. Suspect partial volume averaging with the associated disc. At least mild bilateral neural foramina narrowing. L2-L3 level demonstrates facet arthropathy changes. Uncovering of the intervertebral disc with moderate spinal canal stenosis. Partial laminectomy changes at this level are noted. Difficulty appreciating significant interval change when compared to prior exam. Moderate bilateral foraminal stenoses. L3-L4 level demonstrates left paracentral disc protrusion. Laminectomy changes are noted. Moderate bilateral foraminal stenoses left greater than right. Copious thecal sac volume is noted. Previously described laminectomy bed fluid collection significantly reduced in volume. L4-L5 level demonstrates laminectomy changes with copious thecal sac volume. At least moderate bilateral foraminal stenoses left greater than right. Previously described portion of the laminectomy bed fluid collection significantly decreased in size when compared to prior study. L5-S1 level demonstrates uncovering of the intervertebral disc. Laminectomy changes are noted. Thecal sac volume is fairly well-maintained. Moderate to marked bilateral foraminal stenoses. Include retroperitoneal structures demonstrate likely benign left renal cysts. Fluid collection along the superficial midline incision not entirely included on this exam. Included components. Be similar to prior study. Suspect seroma. Paraspinous musculature demonstrate increased fluid-sensitive signal consistent with inflammatory changes likely postintervention. Impression: 1. Interval transversely oriented small fluid signal intensity collection at the level of the S1 vertebral body with associated marrow edematous changes and mild anterior translation and subtle focal kyphosis. This is only included on the sagittal series. Findings most worrisome for fracture. Etiology is uncertain. Infectious process is not excluded. Recommend clinical correlation, CT evaluation and contrast-enhanced MRI evaluation. 2. Stable appearing lumbosacral fusion susceptibility changes. Previously described laminectomy bed fluid collection significantly decreased in size when compared to prior exam. Suspect resolving seroma. Additional likely midline incision seroma is noted. Difficulty appreciating significant interval change. 3. Advanced multilevel degenerative changes with significant foraminal stenoses. Please see above for details. Electronically signed by Lb Cotton 07-18-2025 8:21 PM
[2025-07-18] MEDS: ACETAMINOPHEN 1,000 MG/100 ML VIAL IV STA (21:11)
--- NOTE | 2025-07-18 21:53 | CT Scan Report ---
Exam(s): CT LEFT HIP Without Contrast EXAM: CT Left Lower Extremity Without Intravenous Contrast, Hip CLINICAL HISTORY: Reason for exam: pain. TECHNIQUE: Axial computed tomography images of the left hip without intravenous contrast. CTDI is 35.1 mGy and DLP is 988.13 mGy-cm. Automated exposure control was utilized for the study. A dose lowering technique was utilized adhering to the principles of ALARA. COMPARISON: No relevant prior studies available. FINDINGS: Bones/joints: No acute fracture or malalignment. No joint effusion. Mild degenerative changes in the left hip. Soft tissues: Atrophy of the left gluteus muscles. Bladder: Carmona catheter within the bladder. IMPRESSION: No acute fracture or malalignment. Electronically signed by: Odin Burkett MD 07/18/25 21:52 PM
--- NOTE | 2025-07-18 21:56 | CT Scan Report ---
Exam(s): CT PELVIS Without Contrast EXAM: CT Pelvis Without Intravenous Contrast CLINICAL HISTORY: Reason for exam: pain. TECHNIQUE: Axial computed tomography images of the pelvis without intravenous contrast. CTDI is 35.1 mGy and DLP is 988.13 mGy-cm. Automated exposure control was utilized for the study. A dose lowering technique was utilized adhering to the principles of ALARA. COMPARISON: No relevant prior studies available. FINDINGS: Bowel: Mucosal thickening in the sigmoid colon, diverticulitis versus mucosal mass. Intraperitoneal space: Unremarkable. No free air. No significant fluid collection. Bladder: Carmona catheter in the bladder which is decompressed. Reproductive: Hysterectomy. Bones/joints: Fractures of the bilateral sacral ala with a transverse component of the level of S1. Osteopenia. Mild degenerative changes in the hips. Postsurgical hardware within the lumbosacral spine. No dislocation. Soft tissues: Unremarkable. IMPRESSION: 1. Fractures of the bilateral sacral ala with a transverse component of the level of S1. 2. Mucosal thickening in the sigmoid colon, diverticulitis versus mucosal mass. Correlate clinically and consider colonoscopy. Electronically signed by: Odin Burkett MD 07/18/25 21:55 PM
--- NOTE | 2025-07-18 21:58 | CT Scan Report ---
Exam(s): CT L SPINE EXAM: CT Lumbar Spine Without Intravenous Contrast CLINICAL HISTORY: Reason for exam: post op pain. TECHNIQUE: Axial computed tomography images of the lumbar spine without intravenous contrast. CTDI is 35.1 mGy and DLP is 988.13 mGy-cm. Automated exposure control was utilized for the study. A dose lowering technique was utilized adhering to the principles of ALARA. COMPARISON: No relevant prior studies available. FINDINGS: Vertebrae: Fractures of the bilateral sacral ala with a transverse component of the level of S1. L3-S1 posterior decompression and instrumented fusion with a pedicle screw and gabino construct and multilevel disc spacers. Degenerative disc disease at L1-L2 and L2-L3. Soft tissues: Unremarkable. IMPRESSION: Fractures of the bilateral sacral ala with a transverse component of the level of S1. Electronically signed by: Odin Burkett MD 07/18/25 21:57 PM
--- NOTE | 2025-07-18 23:25 | History & Physical Report ---
Date of Service July 18, 2025 Assessment & Plan (1) Closed sacral fracture: Plan: 80-year-old female with past medical history significant for hypertension, diverticulitis, irritable bowel syndrome, urinary incontinence secondary to cystocele with prolapse who had back surgery done on and was again admitted on 07/11/2025 for postop lumbar epidural hematoma s/p evacuation and was discharged on 07/14/2025 comes back with complaints of back pain and left hip pain. Patient's pain is going for last 2 weeks. Having some difficulty ambulating. Ambulating with a walker. Constipated. Denies any bloody stools. Patient was also having urinary retention status post Carmona catheter in the ER. Pain is more in the left hip region. Denies any fevers. No chest pain or shortness of breath. No nausea. No headache. No neck pain. Vision is okay. No runny nose or sore throat. No cough. Appetite is okay. Hemodynamics are okay. Closed sacral fracture Recent back surgery Also was again admitted on 07/11/2025 for postop lumbar epidural hematoma s/p evacuation MRI shows: 1. Interval transversely oriented small fluid signal intensity collection at the level of the S1 vertebral body with associated marrow edematous changes and mild anterior translation and subtle focal kyphosis. This is only included on the sagittal series. Findings most worrisome for fracture. Etiology is uncertain. Infectious process is not excluded. Recommend clinical correlation, CT evaluation and contrast-enhanced MRI evaluation. CT pelvis: 1. Fractures of the bilateral sacral ala with a transverse component of the level of S1. 2. Mucosal thickening in the sigmoid colon, diverticulitis versus mucosal mass. Correlate clinically and consider colonoscopy. Pain control N.p.o. for now Gentle fluids Consult orthospine in a.m. Possible diverticulitis Possible mucosal mass on CT scan History of diverticulitis as per patient Patient states she had colonoscopy 5 years ago Empiric Zosyn N.p.o. for now, IV fluids Consult surgery in a.m. for further commendations Constipation History of IBS Stool softeners Urinary retention History of urinary incontinence Status post Carmona Hypertension On amlodipine Will monitor GERD Omeprazole DVT prophylaxis SCDs for now Further anticoagulation per Ortho Disposition Medical floor Full code. History of Present Illness Chief Complaint: Back and left hip pain Primary Care Provider: Lenny Albert 80-year-old female with past medical history significant for hypertension, diverticulitis, irritable bowel syndrome, urinary incontinence secondary to cystocele with prolapse who had back surgery done on and was again admitted on 07/11/2025 for postop lumbar epidural hematoma s/p evacuation and was discharged on 07/14/2025 comes back with complaints of back pain and left hip pain. Patient's pain is going for last 2 weeks. Having some difficulty ambulating. Ambulating with a walker. Constipated. Denies any bloody stools. Patient was also having urinary retention status post Carmona catheter in the ER. Pain is more in the left hip region. Denies any fevers. No chest pain or shortness of breath. No nausea. No headache. No neck pain. Vision is okay. No runny nose or sore throat. No cough. Appetite is okay. Hemodynamics are okay. Past medical history. As mentioned above. Past surgical history. Bilateral cataract extraction. Colonoscopy. Foot surgery. Carpal tunnel release of both wrist. History of parathyroidectomy. Removal of adenoma. History of hysterectomy. Social history. No smoking. No alcohol. No drug use. Allergies Allergy/AdvReac Type Severity Reaction Status Date / Time No Known Allergies Allergy Verified 07/18/25 20:27 Home Medications Medication Instructions Recorded Confirmed Type acetaminophen 500 mg capsule 1,000 mg PO TID PRN Pain 06/21/25 07/18/25 History amlodipine 10 mg tablet 10 mg PO HS 06/21/25 07/18/25 History aspirin 81 mg capsule 81 mg PO [id number] 06/21/25 07/18/25 History cholecalciferol (vitamin D3) 125 250 mcg PO DAILY 06/21/25 07/18/25 History mcg (5,000 unit) tablet (Vitamin D3) dicyclomine 10 mg capsule 10 mg PO BID PRN Abdominal 06/21/25 07/18/25 History Discomfort gabapentin 100 mg tablet 100 mg PO TID 06/21/25 07/18/25 History ibuprofen 800 mg tablet 800 mg PO Q8H PRN Pain 06/21/25 07/18/25 History naproxen 375 mg tablet 375 mg PO BID PRN Pain 06/21/25 07/18/25 History omeprazole 20 mg tablet,delayed 20 mg PO QAM 06/21/25 07/18/25 History release zolpidem 5 mg tablet (Ambien) 10 mg PO HS PRN sleep 06/21/25 07/18/25 History oxycodone-acetaminophen 5 mg-325 1 tab PO Q8H #30 tabs 06/29/25 07/18/25 Rx mg tablet (Percocet) tramadol 50 mg tablet 50 mg PO Q6H PRN pain, moderate 06/29/25 07/18/25 Rx #30 tabs cyclobenzaprine 10 mg tablet 5 mg (1/2 x 10 mg) PO Q8 PRN 07/01/25 07/18/25 Rx muscle spasm #20 tabs oxycodone 5 mg tablet 5 mg PO Q6H PRN pain #30 tabs 07/13/25 07/18/25 Rx baclofen 20 mg tablet 20 mg PO TID PRN MUSCLE SPASMS 07/18/25 07/18/25 History Past Med/Surg History Problem List (Updated 07/19/25 @ 01:17 by Tuan Rust PA-C) Diverticulitis Anemia (Acute) Acute urinary retention (Acute) Abnormal CT scan, pelvis (Acute) Post-operative pain (Acute) Closed sacral fracture (Acute) E. coli UTI Lumbar radiculopathy History of lumbar surgery (Acute) Low back pain (Acute) Multilevel lumbosacral spondylosis with radiculopathy Encounter for pre-operative examination Medical History Acid reflux well controlled Neuropathy bilat feet /legs History of postoperative nausea and vomiting Slow to wake up after anesthesia Cystocele with prolapse mild prolapse Urinary incontinence IBS (irritable bowel syndrome) w/ diarrhea Low back pain HTN (hypertension) Surgical History Hx of bilateral cataract extraction Hx of colonoscopy History of foot surgery right - tarsal tunnel History of carpal tunnel release of both wrists Hx of parathyroidectomy removal of adenoma Hx of hysterectomy Social History Smoking Status: Never smoker Second Hand Exposure: Yes; Do You Dip or Chew Tobacco: No; Hx Alcohol Use: No Hx Substance Use: No Preferred Language: Icelandic Communication Ability: Effective Welcome [place] Agent Required: No Beliefs That Will Affect Care: None Current Living Situation: Spouse Other Information That Helps Us Care for You: No Feels Safe at Home: Yes Safety Concerns: Feels Safe At This Time Assistive Devices: Hospital Bed Review of Systems Review of Systems: All systems reviewed & are unremarkable except as noted in HPI & below Physical Exam Physical Exam: General- Not in acute distress Head- atraumatic Eyes- PERRL. ENT- oropharynx clear Neck- supple, no JVD. Lungs- clear to auscultation no wheezing or crackles. Heart- regular rhythm; no murmur, no gallop. Abdomen- normal bowel sounds, soft, nontender, no distension Extremities- mild pretibial edema present, No erythema seen. Neuro- alert, oriented PERRL, no facial palsy; no dysarthria; moves extremities Musculoskeletal. Lumbar back surgery site no erythema or drainage seen Results & Data Results & Data Vital Signs (Past 12 Hours) Vital Signs Temp Pulse Pulse Resp BP BP Pulse Ox 07/18/25 23:02 85 16 147/80 H 94 07/18/25 21:04 90 20 161/76 H 93 07/18/25 19:56 93 H 20 159/73 H 95 07/18/25 17:57 102 H 07/18/25 17:34 102 H 20 149/96 H 98 07/18/25 17:32 98 07/18/25 17:19 36.5 C 104 H 18 145/72 H 97 O2 Del Method 07/18/25 23:02 Room Air 07/18/25 21:04 Room Air 07/18/25 19:56 Room Air 07/18/25 17:57 07/18/25 17:34 Room Air 07/18/25 17:32 Room Air 07/18/25 17:19 Room Air Diagnostic Findings Laboratory Results WBC 9.81 K/ul (4.8-10.8) 07/18/25 17:40 RBC 3.22 M/uL (4.20-5.40) L 07/18/25 17:40 Hgb 9.5 g/dl (12.0-16.0) L 07/18/25 17:40 Hct 29.6 % (37.0-47.0) L 07/18/25 17:40 MCV 91.9 fL (80.0-100.0) 07/18/25 17:40 MCH 29.5 pg (25.0-34.0) 07/18/25 17:40 MCHC 32.1 g/dL (32.0-36.0) 07/18/25 17:40 RDW Std Deviation 42.5 fL (36.4-46.3) 07/18/25 17:40 RDW Coeff of Karen 12.7 % (11.5-14.5) 07/18/25 17:40 Plt Count 283 K/uL (130-400) 07/18/25 17:40 MPV 8.8 fL (9.4-12.4) L 07/18/25 17:40 Immature Gran % (Auto) 0.6 % 07/18/25 17:40 Neut % (Auto) 81.2 % 07/18/25 17:40 Lymph % (Auto) 12.5 % 07/18/25 17:40 [place] % (Auto) 5.5 % 07/18/25 17:40 Eos % (Auto) 0.0 % 07/18/25 17:40 Baso % (Auto) 0.2 % 07/18/25 17:40 Neut # (Auto) 7.96 K/uL (1.40-6.50) H 07/18/25 17:40 Lymph # (Auto) 1.23 K/uL (1.20-3.40) 07/18/25 17:40 [place] # (Auto) 0.54 K/uL (0.11-0.59) 07/18/25 17:40 Eos # (Auto) 0.00 K/uL (0.00-0.50) 07/18/25 17:40 Baso # (Auto) 0.02 K/uL (0.00-0.20) 07/18/25 17:40 Immature Gran # (Auto) 0.06 K/uL (0.01-0.20) 07/18/25 17:40 Sodium 138 mmol/L (136-145) 07/18/25 17:40 Potassium 3.8 mmol/L (3.5-5.1) 07/18/25 17:40 Chloride 105 mmol/L (98-107) 07/18/25 17:40 Carbon Dioxide 26 mmol/L (21-32) 07/18/25 17:40 Anion Gap 7 (3-11) 07/18/25 17:40 BUN 21 mg/dl (6-23) 07/18/25 17:40 Creatinine 0.79 mg/dl (0.6-1.2) 07/18/25 17:40 Est Cr Clr Drug Dosing 53.9 ml/min 07/18/25 17:40 eGFR 76.04 07/18/25 17:40 BUN/Creatinine Ratio 26.6 (10-20) H 07/18/25 17:40 Glucose 118 mg/dl (70-99(Fasting)) H 07/18/25 17:40 Calcium 9.3 mg/dl (8.6-10.3) 07/18/25 17:40 Total Bilirubin 0.6 mg/dl (0.2-1.0) 07/18/25 17:40 AST 11 U/L (13-39) L 07/18/25 17:40 ALT < 3 U/L (7-52) L 07/18/25 17:40 Alkaline Phosphatase 159 U/L (34-104) H 07/18/25 17:40 C-Reactive Protein 10.80 mg/dl (0-0.5) H 07/18/25 17:40 Total Protein 6.3 gm/dl (6.0-8.3) 07/18/25 17:40 Albumin 3.6 gm/dl (3.4-5.0) 07/18/25 17:40 Globulin 2.7 gm/dl (2.5-4.0) 07/18/25 17:40 Albumin/Globulin Ratio 1.3 (0.9-2) 07/18/25 17:40 Lipase 9 U/L (11-82) L 07/18/25 17:40 Procalcitonin 0.13 ng/ml (0-0.5) 07/18/25 17:40 Urine Color Yellow 07/18/25 19:01 Urine Appearance Clear (Clear) 07/18/25 19:01 Urine pH 7.0 (4.5-7.5) 07/18/25 19:01 Ur Specific [place] 1.016 (1.000-1.030) 07/18/25 19:01 Urine Protein Negative (Negative) 07/18/25 19:01 Urine Glucose (UA) Negative (Negative) 07/18/25 19:01 Urine Ketones Negative (Negative) 07/18/25 19:01 Urine Blood 1+ (Negative) H 07/18/25 19:01 Urine Nitrite Negative (Negative) 07/18/25 19:01 Urine Bilirubin Negative (Negative) 07/18/25 19:01 Urine Urobilinogen Positive (Negative) H 07/18/25 19:01 Ur Leukocyte Esterase Negative (Negative) 07/18/25 19:01 Urine WBC (Auto) 0-5 /hpf (0-5) 07/18/25 19:01 Urine RBC (Auto) 6-10 /hpf (0-2) H 07/18/25 19:01 U Hyaline Cast (Auto) 0-2 /lpf (0-2) 07/18/25 19:01 U Epithel Cells (Auto) 0-2 /hpf (0-2) 07/18/25 19:01 Urine Bacteria (Auto) None Seen (None Seen) 07/18/25 19:01 Urine Comment 07/18/25 19:01 Impressions Lumbar Spine MRI 07/18/25 17:30 Exam: MR lumbar spine without contrast. History: Unable to ambulate with recent surgeries. Comparison: July 11, 2025. Technique: Routine multiplanar multisequence MR images of the lumbar spine without intravenous contrast. Findings: In keeping with previous exam the lowest fully formed intervertebral disc will be labeled L5-S1 for purposes of this dictation. Marrow signal demonstrates susceptibility artifact consistent with bilateral pedicle screws, transverse fixation and vertical fixation rods spanning L3-S1. Interbody grafts at these levels are noted. Laminectomies at these levels are noted. Findings are similar to prior study. There is a interval transverse fairly well-defined slightly serpiginous T1 hypointense and increased fluid sensitive signal focus at the level of the mid S1 vertebral body. This is seen on the sagittal series. Axial series does not include this level. There is mild ventral translation and an element of kyphosis at this level. Adjacent decreased T1 and increased fluid-sensitive signal of the vertebral body at this level is noted. Slight presacral edematous changes. No drainable presacral fluid collection. There is mild stepwise retrolisthesis of the upper lumbar spine. Persistent grade 1 anterolisthesis L5 on S1. Intervertebral disc demonstrate fluid at the level of the L1-L2 intervertebral disc. This is similar to prior study. Endplate cortices appear to be intact. Mild multilevel endplate osteophytes are noted. Conus terminates at the L1 level. Normal signal and caliber. Axial series demonstrate [id number]: L1-L2 level demonstrates mild uncovering of the intervertebral disc. Mild elements of decreased T1 and T2 signal along the ventral extradural spinal canal slightly asymmetric to the left is noted. This is difficult to appreciate with certainty on the sagittal series. Findings are similar to prior exam. Suspect partial volume averaging with the associated disc. At least mild bilateral neural foramina narrowing. L2-L3 level demonstrates facet arthropathy changes. Uncovering of the intervertebral disc with moderate spinal canal stenosis. Partial laminectomy changes at this level are noted. Difficulty appreciating significant interval change when compared to prior exam. Moderate bilateral foraminal stenoses. L3-L4 level demonstrates left paracentral disc protrusion. Laminectomy changes are noted. Moderate bilateral foraminal stenoses left greater than right. Copious thecal sac volume is noted. Previously described laminectomy bed fluid collection significantly reduced in volume. L4-L5 level demonstrates laminectomy changes with copious thecal sac volume. At least moderate bilateral foraminal stenoses left greater than right. Previously described portion of the laminectomy bed fluid collection significantly decreased in size when compared to prior study. L5-S1 level demonstrates uncovering of the intervertebral disc. Laminectomy changes are noted. Thecal sac volume is fairly well-maintained. Moderate to marked bilateral foraminal stenoses. Include retroperitoneal structures demonstrate likely benign left renal cysts. Fluid collection along the superficial midline incision not entirely included on this exam. Included components. Be similar to prior study. Suspect seroma. Paraspinous musculature demonstrate increased fluid-sensitive signal consistent with inflammatory changes likely postintervention. Impression: 1. Interval transversely oriented small fluid signal intensity collection at the level of the S1 vertebral body with associated marrow edematous changes and mild anterior translation and subtle focal kyphosis. This is only included on the sagittal series. Findings most worrisome for fracture. Etiology is uncertain. Infectious process is not excluded. Recommend clinical correlation, CT evaluation and contrast-enhanced MRI evaluation. 2. Stable appearing lumbosacral fusion susceptibility changes. Previously described laminectomy bed fluid collection significantly decreased in size when compared to prior exam. Suspect resolving seroma. Additional likely midline incision seroma is noted. Difficulty appreciating significant interval change. 3. Advanced multilevel degenerative changes with significant foraminal stenoses. Please see above for details. Electronically signed by Lb Cotton 07-18-2025 8:[address] 07/18/25 20:29 Exam(s): CT L SPINE EXAM: CT Lumbar Spine Without Intravenous Contrast CLINICAL HISTORY: Reason for exam: post op pain. TECHNIQUE: Axial computed tomography images of the lumbar spine without intravenous contrast. CTDI is 35.1 mGy and DLP is 988.13 mGy-cm. Automated exposure control was utilized for the study. A dose lowering technique was utilized adhering to the principles of ALARA. COMPARISON: No relevant prior studies available. FINDINGS: Vertebrae: Fractures of the bilateral sacral ala with a transverse component of the level of S1. L3-S1 posterior decompression and instrumented fusion with a pedicle screw and gabino construct and multilevel disc spacers. Degenerative disc disease at L1-L2 and L2-L3. Soft tissues: Unremarkable. IMPRESSION: Fractures of the bilateral sacral ala with a transverse component of the level of S1. Electronically signed by: Odin Burkett MD 07/18/25 21:[address] 07/18/25 20:29 Exam(s): CT PELVIS Without Contrast EXAM: CT Pelvis Without Intravenous Contrast CLINICAL HISTORY: Reason for exam: pain. TECHNIQUE: Axial computed tomography images of the pelvis without intravenous contrast. CTDI is 35.1 mGy and DLP is 988.13 mGy-cm. Automated exposure control was utilized for the study. A dose lowering technique was utilized adhering to the principles of ALARA. COMPARISON: No relevant prior studies available. FINDINGS: Bowel: Mucosal thickening in the sigmoid colon, diverticulitis versus mucosal mass. Intraperitoneal space: Unremarkable. No free air. No significant fluid collection. Bladder: Carmona catheter in the bladder which is decompressed. Reproductive: Hysterectomy. Bones/joints: Fractures of the bilateral sacral ala with a transverse component of the level of S1. Osteopenia. Mild degenerative changes in the hips. Postsurgical hardware within the lumbosacral spine. No dislocation. Soft tissues: Unremarkable. IMPRESSION: 1. Fractures of the bilateral sacral ala with a transverse component of the level of S1. 2. Mucosal thickening in the sigmoid colon, diverticulitis versus mucosal mass. Correlate clinically and consider colonoscopy. Electronically signed by: Odin Burkett MD 07/18/25 21:[address] 07/18/25 20:32 Exam(s): CT LEFT HIP Without Contrast EXAM: CT Left Lower Extremity Without Intravenous Contrast, Hip CLINICAL HISTORY: Reason for exam: pain. TECHNIQUE: Axial computed tomography images of the left hip without intravenous contrast. CTDI is 35.1 mGy and DLP is 988.13 mGy-cm. Automated exposure control was utilized for the study. A dose lowering technique was utilized adhering to the principles of ALARA. COMPARISON: No relevant prior studies available. FINDINGS: Bones/joints: No acute fracture or malalignment. No joint effusion. Mild degenerative changes in the left hip. Soft tissues: Atrophy of the left gluteus muscles. Bladder: Carmona catheter within the bladder. IMPRESSION: No acute fracture or malalignment. Electronically signed by: Odin Burkett MD 07/18/25 21:52 PM Code Status & VTE Plan VTE Prophylaxis Plan VTE Prophylaxis will be ordered: Yes
[2025-07-19] MEDS ORDERED: DICYCLOMINE HCL 10 MG CAP PO PRN (00:38)
[2025-07-19] MEDS ORDERED: ZOLPIDEM TARTRATE 5 MG TAB PO PRN (00:38)
[2025-07-19] MEDS ORDERED: POLYETHYLENE (MIRALAX) 17 GM PACK PO PRN (00:38)
--- NOTE | 2025-07-19 01:19 | Surgery Consultation ---
Date of Consultation July 19, 2025 Assessment & Plan (1) Diverticulitis: Patient has been admitted on the hospitalist service. From a surgical perspective we recommend the following: There is concern that the patient may have diverticulitis on CT scan of the abdomen pelvis versus a mucosal mass. Clinically the patient does not exhibit signs or symptoms consistent with diverticulitis, nonetheless we will treat her in a conservative fashion The patient has been initiated on antibiotics in form of Zosyn The patient has been made n.p.o. this should continue for this evening She is being hydrated IV fluids Serial labs to be followed Will monitor the patient's clinical course with plans to advance her diet if she remains clinically stable. When her diet is advanced would recommend beginning with clear liquids to ensure she tolerates this While diverticulitis has not been definitively ascertained, there is also concern that patient may have a mucosal mass. Therefore would recommend that the patient undergo repeat colonoscopy for further delineation of this, however we would like to ensure that she does not have any element of active diverticulitis prior to undergoing this study Will defer remainder of her care concerning her orthopedic/spine issues to orthopedic/spine service and the primary service Additional recommendations to be forthcoming based on her clinical course as it unfolds Supervising Physician Co-Signing Physician Notes Mild diverticulitis versus mucosal mass sigmoid colon She can have clear liquids today from a general surgical standpoint Continue her IV antibiotics for today Will follow-up tomorrow and see how she is doing but likely no need for any surgical intervention History of Present Illness Reason for Consultation: Diverticulitis Attending Physician: Odalys Man MD History of Present Illness This is a 80-year-old female who presented to the emergency department secondary to back pain. Patient notes that she had a recent spinal operation with Dr. Abernathy June 28 of this year. The patient also required evacuation of a hematoma on July 12 of this year. The patient notes that she has been having some difficulty walking as well as difficulty urinating having episodes of urinary incontinence and constipation. Because of this she presented to the emergency department. General surgery was asked to see her for possible diverticulitis. The patient notes that she has had diverticulitis in the past but has never required any surgery. At the present time she denies any abdominal pain. She denies any fevers, shakes, or chills. She denies any nausea or vomiting. She has had prior abdominal surgeries in the form of a C- section. Patient further adds that she has had a colonoscopy in the past but it has been approximately 5 years. Since arrival to the hospital she has had labs and imaging which I independently reviewed. She had a lumbar spine MRI which showed concern for a possible sacral fracture. There is also evidence of a resolving seroma. A lumbar spine CT scan again shows concern for fracture of the sacrum. She had a pelvic CT scan that showed concern for mucosal thickening of the sigmoid colon which was felt to either represent diverticulitis or a mucosal mass. She also had a hip CT scan that showed no fractures. Labs including CBC were white blood cell count and platelet count were normal. Hemoglobin and hematocrit were 9.5 and 29.6. Chemistry profile showed sodium and potassium as well as BUN and creatinine were normal. Urinalysis was not indicative of infection. At the time of my interview she was resting comfortably in bed and she was in no distress. Allergies Allergy/AdvReac Type Severity Reaction Status Date / Time No Known Allergies Allergy Verified 07/18/25 20:27 Home Medications Medication Instructions Recorded Confirmed Type acetaminophen 500 mg capsule 1,000 mg PO TID PRN Pain 06/21/25 07/18/25 History amlodipine 10 mg tablet 10 mg PO HS 06/21/25 07/18/25 History aspirin 81 mg capsule 81 mg PO 3XWK 06/21/25 07/18/25 History cholecalciferol (vitamin D3) 125 250 mcg PO DAILY 06/21/25 07/18/25 History mcg (5,000 unit) tablet (Vitamin D3) dicyclomine 10 mg capsule 10 mg PO BID PRN Abdominal 06/21/25 07/18/25 History Discomfort gabapentin 100 mg tablet 100 mg PO TID 06/21/25 07/18/25 History ibuprofen 800 mg tablet 800 mg PO Q8H PRN Pain 06/21/25 07/18/25 History naproxen 375 mg tablet 375 mg PO BID PRN Pain 06/21/25 07/18/25 History omeprazole 20 mg tablet,delayed 20 mg PO QAM 06/21/25 07/18/25 History release zolpidem 5 mg tablet (Ambien) 10 mg PO HS PRN sleep 06/21/25 07/18/25 History oxycodone-acetaminophen 5 mg-325 1 tab PO Q8H #30 tabs 06/29/25 07/18/25 Rx mg tablet (Percocet) tramadol 50 mg tablet 50 mg PO Q6H PRN pain, moderate 06/29/25 07/18/25 Rx #30 tabs cyclobenzaprine 10 mg tablet 5 mg (1/2 x 10 mg) PO Q8 PRN 07/01/25 07/18/25 Rx muscle spasm #20 tabs oxycodone 5 mg tablet 5 mg PO Q6H PRN pain #30 tabs 07/13/25 07/18/25 Rx baclofen 20 mg tablet 20 mg PO TID PRN MUSCLE SPASMS 07/18/25 07/18/25 History Patient History Medical History Acid reflux well controlled Neuropathy bilat feet /legs History of postoperative nausea and vomiting Slow to wake up after anesthesia Cystocele with prolapse mild prolapse Urinary incontinence IBS (irritable bowel syndrome) w/ diarrhea Low back pain HTN (hypertension) Surgical History Hx of bilateral cataract extraction Hx of colonoscopy History of foot surgery right - tarsal tunnel History of carpal tunnel release of both wrists Hx of parathyroidectomy removal of adenoma Hx of hysterectomy Social History Smoking Status: Never smoker Second Hand Exposure: Yes; Do You Dip or Chew Tobacco: No; Hx Alcohol Use: No Hx Substance Use: No Preferred Language: Kinyarwanda Communication Ability: Effective Senior Administrative Associate Required: No Beliefs That Will Affect Care: None Current Living Situation: Spouse Other Information That Helps Us Care for You: No Feels Safe at Home: Yes Safety Concerns: Feels Safe At This Time Assistive Devices: Hospital Bed Review of Systems Review of Systems: All systems reviewed & are unremarkable except as noted in HPI & below Physical Exam Constitutional: WD/WN, vitals as above Eyes: no conjunctival abnormality ENMT: Ears: no hearing impairment Respiratory: normal respiratory effort; no respiratory distress and no labored breathing Cardiovascular: Rate/Rhythm: regular rate and regular rhythm Gastrointestinal (Abdomen): Patient's abdomen was noted to be benign at the time of my exam. It was soft without distention or rigidity. There is no rebound tenderness or guarding. There are no signs of peritonitis. There is no pain noted with palpation specifically in the left lower quadrant Musculoskeletal: No calf tenderness Skin: no rashes Neurologic: moves all extremities Psychiatric: A+Ox3, euthymic affect Results & Data Vital Signs (Past 12 Hours) Vital Signs Temp Pulse Pulse Resp BP BP Pulse Ox 07/19/25 00:45 36.5 C 85 16 147/75 H 97 07/18/25 23:41 88 20 147/80 H 94 07/18/25 23:02 85 16 147/80 H 94 07/18/25 21:04 90 20 161/76 H 93 07/18/25 19:56 93 H 20 159/73 H 95 07/18/25 17:57 102 H 07/18/25 17:34 102 H 20 149/96 H 98 07/18/25 17:32 98 07/18/25 17:19 36.5 C 104 H 18 145/72 H 97 O2 Del Method 07/19/25 00:45 Room Air 07/18/25 23:41 Room Air 07/18/25 23:02 Room Air 07/18/25 21:04 Room Air 07/18/25 19:56 Room Air 07/18/25 17:57 07/18/25 17:34 Room Air 07/18/25 17:32 Room Air 07/18/25 17:19 Room Air PG Care Time/CCT Total # of Minutes Spent Total Time Spent with Patient: Total time spent is greater than 50% in coordination of care (as documented) at patient's floor/unit and/or counseling patient: Coding Level of Care Code 20811 INT INP/OBS CARE Diagnoses Diverticulitis K57.92
[2025-07-19] MEDS: SODIUM CHLORIDE 0.9% 1,000 ML IV SCH (01:36)
[2025-07-19] MEDS: PIPERACILLIN/TAZOBACTAM 4.5 GM/100 ML BAG IV STA (01:42)
[2025-07-19 06:53] LABS: Hematocrit (blood only) 28.4 % (37.0-47.0); Hemoglobin 9.1 g/dl (12.0-16.0); Immature Granulocytes # (auto) 0.03 K/uL (0.01-0.20); Immature Granulocytes % (auto) 0.5 %; Mean Corpuscular Hemoglobin 29.3 pg (25.0-34.0); Mean Corpuscular Volume 91.3 fL (80.0-100.0); Platelet Count 248 K/uL (130-400); RDW Standard Deviation 41.9 fL (36.4-46.3); Red Blood Count 3.11 M/uL (4.20-5.40); White Blood Count 6.32 K/ul (4.8-10.8)
[2025-07-19 07:10] LABS: Anion Gap 6.0 (3-11); Blood Urea Nitrogen 16.0 mg/dl (6-23); Calcium 8.9 mg/dl (8.6-10.3); Carbon Dioxide 27.0 mmol/L (21-32); Chloride 106.0 mmol/L (98-107); Creatinine Clr Calc Pharmacy 56.8 ml/min; Glucose 106.0 mg/dl (70-99(Fasting)); Magnesium 1.9 mg/dl (1.7-2.4); Potassium 3.8 mmol/L (3.5-5.1); Sodium 139.0 mmol/L (136-145)
[2025-07-19] MEDS: PIPERACILLIN/TAZOBACTAM 4.5 GM/100 ML BAG IV SCH (09:47)
[2025-07-19] MEDS: CHOLECALCIFEROL 125 MCG (5,000 UNITS) TAB PO SCH (09:56)
[2025-07-19] MEDS: GABAPENTIN 100 MG CAP PO SCH (09:56)
[2025-07-19] MEDS: ASPIRIN 81 MG ECTAB PO SCH (09:56)
--- NOTE | 2025-07-19 12:43 | Orthopedic Consultation ---
Date of Consultation July 19, 2025 Assessment & Plan (1) Closed sacral fracture: Assessment sacral fracture. Plan at this time imaging of the lumbar spine CAT scan and MRI demonstrate acute fracture S1-S2 levels of the sacrum. This is obviously causing significant limitations to her ability to stand and ambulate as well as severe pain. She has a three-level fusion above the sacrum most likely exacerbating underlying osteoporotic fracture. Subsequently recommending stabilization of the lumbar spine to the pelvis by way of iliac bolts. This would stabilize the lumbosacral junction and offset direct pressure on the sacrum and allow her to begin therapy and ambulation. At this point she is on antibiotics for possible diverticulitis. Pending her progress over the next few days we would plan for surgery on Tuesday if cleared by general surgery. Patient stands agrees. History of Present Illness Reason for Consultation: Severe lumbosacral back pain Attending Physician: Odalys Man MD History of Present Illness This is a 80-year-old female well-known to the presents yesterday to the hospital with worsening back and leg pain. Imaging does demonstrate evidence of a sacral fracture as well as possible diverticulosis. Today she is comfortable when lying in bed but is definitely limited with back and leg pain. Allergies Allergy/AdvReac Type Severity Reaction Status Date / Time No Known Allergies Allergy Verified 07/18/25 20:27 Home Medications Medication Instructions Recorded Confirmed Type acetaminophen 500 mg capsule 1,000 mg PO TID PRN Pain 06/21/25 07/18/25 History amlodipine 10 mg tablet 10 mg PO HS 06/21/25 07/18/25 History aspirin 81 mg capsule 81 mg PO 3XWK 06/21/25 07/18/25 History cholecalciferol (vitamin D3) 125 250 mcg PO DAILY 06/21/25 07/18/25 History mcg (5,000 unit) tablet (Vitamin D3) dicyclomine 10 mg capsule 10 mg PO BID PRN Abdominal 06/21/25 07/18/25 History Discomfort gabapentin 100 mg tablet 100 mg PO TID 06/21/25 07/18/25 History ibuprofen 800 mg tablet 800 mg PO Q8H PRN Pain 06/21/25 07/18/25 History naproxen 375 mg tablet 375 mg PO BID PRN Pain 06/21/25 07/18/25 History omeprazole 20 mg tablet,delayed 20 mg PO QAM 06/21/25 07/18/25 History release zolpidem 5 mg tablet (Ambien) 10 mg PO HS PRN sleep 06/21/25 07/18/25 History oxycodone-acetaminophen 5 mg-325 1 tab PO Q8H #30 tabs 06/29/25 07/18/25 Rx mg tablet (Percocet) tramadol 50 mg tablet 50 mg PO Q6H PRN pain, moderate 06/29/25 07/18/25 Rx #30 tabs cyclobenzaprine 10 mg tablet 5 mg (1/2 x 10 mg) PO Q8 PRN 07/01/25 07/18/25 Rx muscle spasm #20 tabs oxycodone 5 mg tablet 5 mg PO Q6H PRN pain #30 tabs 07/13/25 07/18/25 Rx baclofen 20 mg tablet 20 mg PO TID PRN MUSCLE SPASMS 07/18/25 07/18/25 History Patient History Medical History Acid reflux well controlled Neuropathy bilat feet /legs History of postoperative nausea and vomiting Slow to wake up after anesthesia Cystocele with prolapse mild prolapse Urinary incontinence IBS (irritable bowel syndrome) w/ diarrhea Low back pain HTN (hypertension) Surgical History Hx of bilateral cataract extraction Hx of colonoscopy History of foot surgery right - tarsal tunnel History of carpal tunnel release of both wrists Hx of parathyroidectomy removal of adenoma Hx of hysterectomy Social History Smoking Status: Never smoker Second Hand Exposure: Yes; Do You Dip or Chew Tobacco: No; Hx Alcohol Use: No Hx Substance Use: No Preferred Language: Georgian Communication Ability: Effective Suede Brusher Required: No Beliefs That Will Affect Care: None Current Living Situation: Spouse Other Information That Helps Us Care for You: No Feels Safe at Home: Yes Safety Concerns: Feels Safe At This Time Assistive Devices: Walker Physical Exam Physical Exam: On exam she is neurologically intact lower extremities. Results & Data Vital Signs (Past 12 Hours) Vital Signs Temp Pulse Resp BP Pulse Ox O2 Del Method 07/19/25 07:00 36.7 C 86 16 129/73 95 Room Air 07/19/25 00:45 36.5 C 85 16 147/75 H 97 Room Air
--- NOTE | 2025-07-19 12:53 | Hospitalist Progress Note ---
Date of Service July 19, 2025 Assessment & Plan (1) Closed sacral fracture: Plan: 80-year-old female with past medical history significant for hypertension, diverticulitis, irritable bowel syndrome, urinary incontinence secondary to cystocele with prolapse who had back surgery done on and was again admitted on 07/11/2025 for postop lumbar epidural hematoma s/p evacuation and was discharged on 07/14/2025 comes back with complaints of back pain and left hip pain. Patient's pain is going for last 2 weeks. Having some difficulty ambulating. Ambulating with a walker. Constipated. Denies any bloody stools. Patient was also having urinary retention status post Carmona catheter in the ER. Pain is more in the left hip region. Denies any fevers. No chest pain or shortness of breath. No nausea. No headache. No neck pain. Vision is okay. No runny nose or sore throat. No cough. Appetite is okay. Hemodynamics are okay. 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 Interval transversely oriented small fluid signal intensity collection at the level of the S1 vertebral body with associated marrow edematous changes and mild anterior translation and subtle focal kyphosis. This is only included on the sagittal series. Findings most worrisome for fracture. Etiology is uncertain. Infectious process is not excluded. Recommend clinical correlation, CT evaluation and contrast-enhanced MRI evaluation. CT pelvis: 1. Fractures of the bilateral sacral ala with a transverse component of the level of S1. 2. Mucosal thickening in the sigmoid colon, diverticulitis versus mucosal mass. Correlate clinically and consider colonoscopy. Possible diverticulitis Possible mucosal mass on CT scan History of diverticulitis as per patient Patient states she had colonoscopy 5 years ago Empiric Zosyn and will be continued N.p.o. for now, IV fluids Appreciate surgery input and recommendation Constipation History of IBS Has not had a bowel movement for some time about 5 days Will increase MiraLAX to 2 times a day and add Colace twice daily Urinary retention History of urinary incontinence Status post Carmona Hypertension On amlodipine Will monitor GERD Omeprazole DVT prophylaxis SCDs for now Further anticoagulation per Ortho Full code. Admission and Anticipated Discharge Date Admission Date: July 18, 2025 Subjective 07/19/2025 The patient was seen and examined in medical floor She has been complaining of severe pain in the pelvis and has not moved her bowel for some time She is frustrated with her condition and wants to be better Denies any chest pain, shortness of breath or palpitation, no abdominal pain nausea no vomiting Review of Systems Review of Systems: All systems reviewed and are unremarkable except as noted below Physical Exam Physical Exam: Lying in bed with distress due to pelvic pain and left hip pain Constitutional: well developed, well nourished, + ill appearing and average body habitus Eyes: PERRL, conjunctivae normal, anicteric sclerae ENMT: external ear and nose normal, oropharynx normal Neck: trachea midline, no thyromegaly Respiratory: no respiratory distress Auscultation: lungs clear to auscultation bilaterally Cardiovascular: Rate/Rhythm: regular rate and regular rhythm; not tachycardic Heart Sounds: normal S1 and normal S2; no murmur Extremities: no edema Gastrointestinal (Abdomen): Inspection/Auscultation: normal bowel sounds; abdomen not distended Percussion/Palpation: abdomen soft; abdomen nontender Musculoskeletal: Severe pain in left hip with movement of the left lower extremity and also pain in the pelvis Neurologic: moves all extremities; + abnormal touch/pain/proprioception ( distorted touch sensation involving the lower extremities mainly the legs) and no focal motor deficits Lymphatic: no cervical or axillary lymphadenopathy Results & Data Results & Data Vital Signs (Past 12 Hours) Vital Signs Temp Pulse Resp BP Pulse Ox O2 Del Method 07/19/25 07:00 36.7 C 86 16 129/73 95 Room Air 07/19/25 00:45 36.5 C 85 16 147/75 H 97 Room Air Laboratory Results Short CBC 07/18/25 07/19/25 Range/Units 17:40 05:57 WBC 9.81 6.32 (4.8-10.8) K/ul Hgb 9.5 L 9.1 L (12.0-16.0) g/dl Hct 29.6 L 28.4 L (37.0-47.0) % Plt Count 283 248 (130-400) K/uL BMP 07/18/25 07/19/25 17:40 05:57 Sodium 138 139 Potassium 3.8 3.8 Chloride 105 106 Carbon Dioxide 26 27 BUN 21 16 Creatinine 0.79 0.75 Glucose 118 H 106 H Calcium 9.3 8.9 Liver Function 07/18/25 Range/Units 17:40 Total Bilirubin 0.6 (0.2-1.0) mg/dl AST 11 L (13-39) U/L ALT < 3 L (7-52) U/L Alkaline Phosphatase 159 H (34-104) U/L Albumin 3.6 (3.4-5.0) gm/dl Urine 07/18/25 Range/Units 19:01 Urine Color Yellow Urine Appearance Clear (Clear) Urine pH 7.0 (4.5-7.5) Ur Specific Goodman 1.016 (1.000-1.030) Urine Protein Negative (Negative) Urine Glucose (UA) Negative (Negative) Medications Administered Current Inpatient Medications Acetaminophen (Acetaminophen 325 Mg Tab) 650 mg PO Q4H PRN PRN Reason: pain/fever Stop: 08/18/25 00:37 Amlodipine Besylate (Amlodipine Besylate 5 Mg Tab) 10 mg PO HS [facility] Stop: 08/18/25 20:59 Aspirin (Aspirin 81 Mg Ectab) 81 mg PO MoWeFr@0900 [facility] Stop: 08/18/25 08:59 Last Admin: 07/19/25 09:56 Dose: 81 mg Baclofen (Baclofen 20 Mg Tab) 20 mg PO TID PRN PRN Reason: MUSCLE SPASMS Stop: 08/18/25 00:37 Dicyclomine HCl (Dicyclomine Hcl 10 Mg Cap) 10 mg PO BID PRN PRN Reason: Abdominal Discomfort Stop: 08/18/25 00:37 Docusate Sodium (Docusate Sodium 100 Mg Cap) 100 mg PO BID [facility] Stop: 08/18/25 20:59 Gabapentin (Gabapentin 100 Mg Cap) 100 mg PO TID [facility] Stop: 08/18/25 08:59 Last Admin: 07/19/25 09:56 Dose: 100 mg Hydromorphone HCl (Hydromorphone Inj 0.5 Mg/0.5 Ml Syr) 0.5 mg IV Q6H PRN PRN Reason: Breakthrough Pain Stop: 08/02/25 00:37 Piperacillin Sod/Tazobactam Sod (Zosyn) 4.5 gm in 100 mls @ 25 mls/hr IV Q8H [facility]; Protocol Stop: 07/29/25 07:59 Last Admin: 07/19/25 09:47 Dose: 25 mls/hr Sodium Chloride (Nss) 1,000 mls @ 100 mls/hr IV .Q10H [facility] Stop: 07/19/25 20:37 Last Admin: 07/19/25 01:36 Dose: 100 mls/hr Oxycodone HCl (Oxycodone Hcl Ir 5 Mg Tab (Immediate Release)) 5 mg PO Q6H PRN PRN Reason: Mod-Sev Pain (Scale 4-10) Stop: 08/02/25 00:37 Last Admin: 07/19/25 09:42 Dose: 5 mg Pantoprazole Sodium (Pantoprazole 40 Mg Tab) 40 mg PO QAM [facility] Stop: 08/18/25 08:59 Last Admin: 07/19/25 09:56 Dose: 40 mg Polyethylene Glycol (Polyethylene (Miralax) 17 Gm Pack) 17 gm PO BID [facility] Stop: 08/18/25 20:59 Vitamin D (Cholecalciferol 125 Mcg (5,000 Units) Tab) 250 mcg PO DAILY [facility] Stop: 08/18/25 08:59 Last Admin: 07/19/25 09:56 Dose: 250 mcg Zolpidem Tartrate (Zolpidem Tartrate 5 Mg Tab) 10 mg PO HS PRN PRN Reason: sleep Stop: 08/18/25 00:37
[2025-07-19] MEDS: HYDROmorphone INJ 0.5 MG/0.5 ML SYR IV PRN (12:55)
[2025-07-19] MEDS: LACTULOSE SYRUP 20 GM/30 ML UDC PO ONE (13:06)
[2025-07-19] MEDS: BACLOFEN 20 MG TAB PO PRN (14:58)
[2025-07-19] MEDS: POLYETHYLENE (MIRALAX) 17 GM PACK PO SCH (22:06)
[2025-07-19] MEDS: DOCUSATE SODIUM 100 MG CAP PO SCH (22:17)
[2025-07-19] MEDS: ACETAMINOPHEN 325 MG TAB PO PRN (22:21)
--- NOTE | 2025-07-20 05:12 | Surgery Progress Note ---
Date of Service July 20, 2025 Assessment & Plan (1) Diverticulitis: Plan: Patient has been admitted on the hospitalist service. surgical recommendations are as follows: The patient has tolerated diet advancement to clear liquids; consideration can be given to advancing her diet further if she remains pain-free and her labs this morning are acceptable Continue antibiotics in form of Zosyn while hospitalized; she will likely need to be transition to oral antibiotics at time of discharge Provide analgesics as needed Encourage ambulation Check a.m. labs when available Admission and Anticipated Discharge Date Admission Date: July 18, 2025 Supervising Physician Co-Signing Physician Notes I have seen and examined this pt this am. She is frustrated regarding the diagnosis of diverticulitis and keeping her from eating as she states she came here specifically for Dr. Abernathy and her hip pain. She denies every having abdominal pain. I reviewed her CT findings with her and she states she has had thickening of her sigmoid colon in the past. She states she would be due for a colonoscopy soon and her last one was roughly 5 years ago. At this time her diet has been advanced to low fiber NPO after MN tomorrow in preparation for orthopedic procedure Pt should be on DVT ppx and hold tomorrow night. General surgery will sign off Subjective Patient is resting comfortably in bed. She notes that she has begun to move her bowels since admission and is also passing flatus. She denies any nausea or vomiting. She denies any fevers, shakes, or chills. No abdominal pain reported. She has had her diet advanced to clear liquids which she has tolerated without any exacerbation of pain. Physical Exam Gastrointestinal (Abdomen): Abdominal exam is benignthere is no distention, rigidity, rebound tenderness, guarding, or pain with palpation. Results & Data Vital Signs (Past 12 Hours) Vital Signs Temp Pulse Resp BP Pulse Ox O2 Del Method 07/19/25 21:55 36.9 C 88 16 146/69 H 97 Room Air 07/19/25 21:51 146/69 H PG Care Time/CCT Total # of Minutes Spent Total Time Spent with Patient: Total time spent is greater than 50% in coordination of care (as documented) at patient's floor/unit and/or counseling patient: Coding Level of Care Code 34410 SUB INP/OBS CARE 11/17MIN Diagnoses Diverticulitis K57.92
[2025-07-20 08:48] LABS: Hematocrit (blood only) 31.0 % (37.0-47.0); Hemoglobin 10.4 g/dl (12.0-16.0); Immature Granulocytes # (auto) 0.03 K/uL (0.01-0.20); Immature Granulocytes % (auto) 0.4 %; Mean Corpuscular Hemoglobin 30.1 pg (25.0-34.0); Mean Corpuscular Volume 89.6 fL (80.0-100.0); Platelet Count 280 K/uL (130-400); RDW Standard Deviation 39.8 fL (36.4-46.3); Red Blood Count 3.46 M/uL (4.20-5.40); White Blood Count 8.19 K/ul (4.8-10.8)
[2025-07-20 09:03] LABS: Anion Gap 9.0 (3-11); Blood Urea Nitrogen 12.0 mg/dl (6-23); Calcium 9.2 mg/dl (8.6-10.3); Carbon Dioxide 26.0 mmol/L (21-32); Chloride 104.0 mmol/L (98-107); Creatinine Clr Calc Pharmacy 52.6 ml/min; Glucose 83.0 mg/dl (70-99(Fasting)); Potassium 3.6 mmol/L (3.5-5.1); Sodium 139.0 mmol/L (136-145)
--- NOTE | 2025-07-20 14:28 | Hospitalist Progress Note ---
Date of Service July 20, 2025 Assessment & Plan (1) Closed sacral fracture: Plan: 80-year-old female with past medical history significant for hypertension, diverticulitis, irritable bowel syndrome, urinary incontinence secondary to cystocele with prolapse who had back surgery done on and was again admitted on 07/11/2025 for postop lumbar epidural hematoma s/p evacuation and was discharged on 07/14/2025 comes back with complaints of back pain and left hip pain. Patient's pain is going for last 2 weeks. Having some difficulty ambulating. Ambulating with a walker. Constipated. Denies any bloody stools. Patient was also having urinary retention status post Carmona catheter in the ER. Pain is more in the left hip region. Denies any fevers. No chest pain or shortness of breath. No nausea. No headache. No neck pain. Vision is okay. No runny nose or sore throat. No cough. Appetite is okay. Hemodynamics are okay. 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 Closed sacral fracture without any history of significant trauma and/or fall Recent back surgery- initial lumbar surgery on 06/28/2025 and second surgery for hematoma evacuation on 07/11/2025 Presented with increasing pain in the pelvis and left hip and bowel has not been moving for some time Not being able to ambulate due to pain Appreciate orthospine input and recommendation for possible surgery on Tuesday Control of pain with intravenous and oral medication now Her pain seems to be reasonably controlled with current medications Awaiting surgery on Tuesday Imaging studies as below: MRI shows: 1. Interval transversely oriented small fluid signal intensity collection at the level of the S1 vertebral body with associated marrow edematous changes and mild anterior translation and subtle focal kyphosis. This is only included on the sagittal series. Findings most worrisome for fracture. Etiology is uncertain. Infectious process is not excluded. Recommend clinical correlation, CT evaluation and contrast-enhanced MRI evaluation. CT pelvis: 1. Fractures of the bilateral sacral ala with a transverse component of the level of S1. 2. Mucosal thickening in the sigmoid colon, diverticulitis versus mucosal mass. Correlate clinically and consider colonoscopy. Possible diverticulitis Possible mucosal mass on CT scan History of diverticulitis as per patient Patient states she had colonoscopy 5 years ago Empiric Zosyn and will be continued N.p.o. for now, IV fluids Appreciate surgery input and recommendation Has been tolerating advance diet and will continue intravenous antibiotic Constipation History of IBS Has not had a bowel movement for some time about 5 days Will increase MiraLAX to 2 times a day and add Colace twice daily Urinary retention History of urinary incontinence Status post Carmona Hypertension On amlodipine Will monitor GERD Omeprazole DVT prophylaxis SCDs for now Further anticoagulation per Ortho Full code. Admission and Anticipated Discharge Date Admission Date: July 18, 2025 Subjective 07/19/2025 The patient was seen and examined in medical floor She has been complaining of severe pain in the pelvis and has not moved her bowel for some time She is frustrated with her condition and wants to be better Denies any chest pain, shortness of breath or palpitation, no abdominal pain nausea no vomiting 07/20/2025 The patient was seen and examined in medical floor in presence of the She complains of spasmodic pain involving the left hip that goes down to the left leg Her pain is not yet well-controlled Denies any fever and no chills and has been tolerating advance diet Review of Systems Review of Systems: All systems reviewed and are unremarkable except as noted below Physical Exam Physical Exam: Lying in bed with distress due to pelvic pain and left hip pain Constitutional: well developed, well nourished, + ill appearing and average body habitus Eyes: PERRL, conjunctivae normal, anicteric sclerae ENMT: external ear and nose normal, oropharynx normal Neck: trachea midline, no thyromegaly Respiratory: no respiratory distress Auscultation: lungs clear to auscu ltation bilaterally Cardiovascular: Rate/Rhythm: regular rate and regular rhythm; not tachycardic Heart Sounds: normal S1 and normal S2; no murmur Extremities: no edema Gastrointestinal (Abdomen): Inspection/Auscultation: normal bowel sounds; abdomen not distended Percussion/Palpation: abdomen soft; abdomen nontender Musculoskeletal: Pain involving left hip on movement of the lower extremities Neurologic: moves all extremities; + abnormal touch/pain/proprioception ( distorted touch sensation involving the lower extremities mainly the legs) and no focal motor deficits Lymphatic: no cervical or axillary lymphadenopathy Results & Data Results & Data Vital Signs (Past 12 Hours) Vital Signs Temp Pulse Resp BP Pulse Ox O2 Del Method 07/20/25 06:55 36.6 C 90 18 136/74 95 Room Air Laboratory Results Short CBC 07/20/25 Range/Units 08:28 WBC 8.19 (4.8-10.8) K/ul Hgb 10.4 L (12.0-16.0) g/dl Hct 31.0 L (37.0-47.0) % Plt Count 280 (130-400) K/uL BMP 07/20/25 08:28 Sodium 139 Potassium 3.6 Chloride 104 Carbon Dioxide 26 BUN 12 Creatinine 0.81 Glucose 83 Calcium 9.2 Medications Administered Current Inpatient Medications Acetaminophen (Acetaminophen 325 Mg Tab) 650 mg PO Q4H PRN PRN Reason: pain/fever Stop: 08/18/25 00:37 Last Admin: 07/19/25 22:21 Dose: 650 mg Amlodipine Besylate (Amlodipine Besylate 5 Mg Tab) 10 mg PO HS [facility] Stop: 08/18/25 20:59 Last Admin: 07/19/25 22:17 Dose: 10 mg Aspirin (Aspirin 81 Mg Ectab) 81 mg PO [email or web address] [facility] Stop: 08/18/25 08:59 Last Admin: 07/19/25 09:56 Dose: 81 mg Baclofen (Baclofen 20 Mg Tab) 20 mg PO TID PRN PRN Reason: MUSCLE SPASMS Stop: 08/18/25 00:37 Last Admin: 07/20/25 08:46 Dose: 10 mg Dicyclomine HCl (Dicyclomine Hcl 10 Mg Cap) 10 mg PO BID PRN PRN Reason: Abdominal Discomfort Stop: 08/18/25 00:37 Docusate Sodium (Docusate Sodium 100 Mg Cap) 100 mg PO BID [facility] Stop: 08/18/25 20:59 Last Admin: 07/20/25 08:49 Dose: Not Given Gabapentin (Gabapentin 100 Mg Cap) 100 mg PO TID [facility] Stop: 08/18/25 08:59 Last Admin: 07/20/25 08:46 Dose: 100 mg Hydromorphone HCl (Hydromorphone Inj 0.5 Mg/0.5 Ml Syr) 0.5 mg IV Q6H PRN PRN Reason: Breakthrough Pain Stop: 08/02/25 00:37 Last Admin: 07/19/25 12:55 Dose: 0.5 mg Piperacillin Sod/Tazobactam Sod (Zosyn) 4.5 gm in 100 mls @ 25 mls/hr IV Q8H [facility]; Protocol Stop: 07/29/25 07:59 Last Infusion: 07/20/25 13:11 Dose: Infused Oxycodone HCl (Oxycodone Hcl Ir 5 Mg Tab (Immediate Release)) 5 mg PO Q6H PRN PRN Reason: Mod-Sev Pain (Scale 4-10) Stop: 08/02/25 00:37 Last Admin: 07/19/25 16:30 Dose: 5 mg Pantoprazole Sodium (Pantoprazole 40 Mg Tab) 40 mg PO QAM [facility] Stop: 08/18/25 08:59 Last Admin: 07/20/25 08:46 Dose: 40 mg Polyethylene Glycol (Polyethylene (Miralax) 17 Gm Pack) 17 gm PO BID [facility] Stop: 08/18/25 20:59 Last Admin: 07/20/25 08:40 Dose: Not Given Vitamin D (Cholecalciferol 125 Mcg (5,000 Units) Tab) 250 mcg PO DAILY [facility] Stop: 08/18/25 08:59 Last Admin: 07/20/25 08:46 Dose: 250 mcg Zolpidem Tartrate (Zolpidem Tartrate 5 Mg Tab) 10 mg PO HS PRN PRN Reason: sleep Stop: 08/18/25 00:37
[2025-07-21 07:27] LABS: Hematocrit (blood only) 31.2 % (37.0-47.0); Hemoglobin 10.3 g/dl (12.0-16.0); Immature Granulocytes # (auto) 0.04 K/uL (0.01-0.20); Immature Granulocytes % (auto) 0.7 %; Mean Corpuscular Hemoglobin 29.5 pg (25.0-34.0); Mean Corpuscular Volume 89.4 fL (80.0-100.0); Platelet Count 269 K/uL (130-400); RDW Standard Deviation 40.1 fL (36.4-46.3); Red Blood Count 3.49 M/uL (4.20-5.40); White Blood Count 5.93 K/ul (4.8-10.8)
[2025-07-21 07:44] LABS: Anion Gap 6.0 (3-11); Blood Urea Nitrogen 14.0 mg/dl (6-23); Calcium 9.2 mg/dl (8.6-10.3); Carbon Dioxide 30.0 mmol/L (21-32); Chloride 104.0 mmol/L (98-107); Creatinine Clr Calc Pharmacy 49.5 ml/min; Glucose 119.0 mg/dl (70-99(Fasting)); Potassium 3.4 mmol/L (3.5-5.1); Sodium 140.0 mmol/L (136-145)
[2025-07-21] MEDS: POTASSIUM CHLORIDE CRTAB 20 MEQ TABCR PO STA (08:56)
--- NOTE | 2025-07-21 13:25 | Hospitalist Progress Note ---
Date of Service July 21, 2025 Assessment & Plan (1) Closed sacral fracture: Plan: 80-year-old female with past medical history significant for hypertension, diverticulitis, irritable bowel syndrome, urinary incontinence secondary to cystocele with prolapse who had back surgery done on and was again admitted on 07/11/2025 for postop lumbar epidural hematoma s/p evacuation and was discharged on 07/14/2025 comes back with complaints of back pain and left hip pain. Patient's pain is going for last 2 weeks. Having some difficulty ambulating. Ambulating with a walker. Constipated. Denies any bloody stools. Patient was also having urinary retention status post Carmona catheter in the ER. Pain is more in the left hip region. Denies any fevers. No chest pain or shortness of breath. No nausea. No headache. No neck pain. Vision is okay. No runny nose or sore throat. No cough. Appetite is okay. Hemodynamics are okay. 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 Closed sacral fracture without any history of significant trauma and/or fall Recent back surgery- initial lumbar surgery on 06/28/2025 and second surgery for hematoma evacuation on 07/11/2025 Presented with increasing pain in the pelvis and left hip and bowel has not been moving for some time Not being able to ambulate due to pain Appreciate orthospine input and recommendation for possible surgery on Tuesday Control of pain with intravenous and oral medication now Her pain seems to be reasonably controlled with current medications Awaiting surgery on Tuesday Remains free from any symptoms at rest and complaining to have spasmodic pain with movement Will give smaller doses of baclofen regularly Hypokalemia Likely secondary to decreased intake Will supplement and recheck Imaging studies as below: MRI shows: 1. Interval transversely oriented small fluid signal intensity collection at the level of the S1 vertebral body with associated marrow edematous changes and mild anterior translation and subtle focal kyphosis. This is only included on the sagittal series. Findings most worrisome for fracture. Etiology is uncertain. Infectious process is not excluded. Recommend clinical correlation, CT evaluation and contrast-enhanced MRI evaluation. CT pelvis: 1. Fractures of the bilateral sacral ala with a transverse component of the level of S1. 2. Mucosal thickening in the sigmoid colon, diverticulitis versus mucosal mass. Correlate clinically and consider colonoscopy. Possible diverticulitis Possible mucosal mass on CT scan History of diverticulitis as per patient Patient states she had colonoscopy 5 years ago Empiric Zosyn and will be continued N.p.o. for now, IV fluids Appreciate surgery input and recommendation Has been tolerating advance diet and will continue intravenous antibiotic Has been tolerating advance diet without any abdominal symptomscontinue current antibiotic Constipation History of IBS Has not had a bowel movement for some time about 5 days Will increase MiraLAX to 2 times a day and add Colace twice daily Urinary retention History of urinary incontinence Status post Carmona Hypertension On amlodipine Will monitor GERD Omeprazole DVT prophylaxis SCDs for now Further anticoagulation per Ortho Full code. Admission and Anticipated Discharge Date Admission Date: July 18, 2025 Subjective 07/19/2025 The patient was seen and examined in medical floor She has been complaining of severe pain in the pelvis and has not moved her bowel for some time She is frustrated with her condition and wants to be better Denies any chest pain, shortness of breath or palpitation, no abdominal pain nausea no vomiting 07/20/2025 The patient was seen and examined in medical floor in presence of the She complains of spasmodic pain involving the left hip that goes down to the left leg Her pain is not yet well-controlled Denies any fever and no chills and has been tolerating advance diet 07/13/2025 The patient was seen and examined in medical floor She has been much better today but is still complains to be spasm involving the left hip and back with movements Denies any other significant symptoms Review of Systems Review of Systems: All systems reviewed and are unremarkable except as noted below Physical Exam Physical Exam: Lying in bed with distress due to pelvic pain and left hip pain Constitutional: well developed, well nourished, + ill appearing and average body habitus Eyes: PERRL, conjunctivae normal, anicteric sclerae ENMT: external ear and nose normal, oropharynx normal Neck: trachea midline, no thyromegaly Respiratory: no respiratory distress Auscultation: lungs clear to auscultation bilaterally Cardiovascular: Rate/Rhythm: regular rate and regular rhythm; not tachycardic Heart Sounds: normal S1 and normal S2; no murmur Extremities: no edema Gastrointestinal (Abdomen): Inspection/Auscultation: normal bowel sounds; abdomen not distended Percussion/Palpation: abdomen soft; abdomen nontender Musculoskeletal: Movements of the lower extremities reveals minimal pain involving the left hip and pelvis Neurologic: moves all extremities; + abnormal touch/pain/proprioception ( distorted touch sensation involving the lower extremities mainly the legs) and no focal motor deficits Lymphatic: no cervical or axillary lymphadenopathy Results & Data Results & Data Vital Signs (Past 12 Hours) Vital Signs Temp Pulse Resp BP Pulse Ox O2 Del Method 07/21/25 07:06 36.5 C 78 16 132/75 98 Room Air Laboratory Results Short CBC 07/21/25 Range/Units 06:43 WBC 5.93 (4.8-10.8) K/ul Hgb 10.3 L (12.0-16.0) g/dl Hct 31.2 L (37.0-47.0) % Plt Count 269 (130-400) K/uL BMP 07/21/25 06:43 Sodium 140 Potassium 3.4 L Chloride 104 Carbon Dioxide 30 BUN 14 Creatinine 0.86 Glucose 119 H Calcium 9.2 Medications Administered Current Inpatient Medications Acetaminophen (Acetaminophen 325 Mg Tab) 650 mg PO Q4H PRN PRN Reason: pain/fever Stop: 08/18/25 00:37 Last Admin: 07/21/25 07:48 Dose: 650 mg Amlodipine Besylate (Amlodipine Besylate 5 Mg Tab) 10 mg PO HS [facility] Stop: 08/18/25 20:59 Last Admin: 07/20/25 20:04 Dose: 10 mg Aspirin (Aspirin 81 Mg Ectab) 81 mg PO [id number]@0900 [facility] Stop: 08/18/25 08:59 Last Admin: 07/19/25 09:56 Dose: 81 mg Baclofen (Baclofen 20 Mg Tab) 20 mg PO TID PRN PRN Reason: MUSCLE SPASMS Stop: 08/18/25 00:37 Last Admin: 07/20/25 08:46 Dose: 10 mg Dicyclomine HCl (Dicyclomine Hcl 10 Mg Cap) 10 mg PO BID PRN PRN Reason: Abdominal Discomfort Stop: 08/18/25 00:37 Docusate Sodium (Docusate Sodium 100 Mg Cap) 100 mg PO BID [facility] Stop: 08/18/25 20:59 Last Admin: 07/21/25 07:48 Dose: 100 mg Gabapentin (Gabapentin 100 Mg Cap) 100 mg PO TID [facility] Stop: 08/18/25 08:59 Last Admin: 07/21/25 13:16 Dose: 100 mg Hydromorphone HCl (Hydromorphone Inj 0.5 Mg/0.5 Ml Syr) 0.5 mg IV Q6H PRN PRN Reason: Breakthrough Pain Stop: 08/02/25 00:37 Last Admin: 07/19/25 12:55 Dose: 0.5 mg Piperacillin Sod/Tazobactam Sod (Zosyn) 4.5 gm in 100 mls @ 25 mls/hr IV Q8H [facility]; Protocol Stop: 07/29/25 07:59 Last Infusion: 07/21/25 12:37 Dose: Infused Oxycodone HCl (Oxycodone Hcl Ir 5 Mg Tab (Immediate Release)) 5 mg PO Q6H PRN PRN Reason: Mod-Sev Pain (Scale 4-10) Stop: 08/02/25 00:37 Last Admin: 07/19/25 16:30 Dose: 5 mg Pantoprazole Sodium (Pantoprazole 40 Mg Tab) 40 mg PO QAM [facility] Stop: 08/18/25 08:59 Last Admin: 07/21/25 07:48 Dose: 40 mg Polyethylene Glycol (Polyethylene (Miralax) 17 Gm Pack) 17 gm PO BID [facility] Stop: 08/18/25 20:59 Last Admin: 07/21/25 07:44 Dose: Not Given Vitamin D (Cholecalciferol 125 Mcg (5,000 Units) Tab) 250 mcg PO DAILY [facility] Stop: 08/18/25 08:59 Last Admin: 07/21/25 07:48 Dose: 250 mcg Zolpidem Tartrate (Zolpidem Tartrate 5 Mg Tab) 10 mg PO HS PRN PRN Reason: sleep Stop: 08/18/25 00:37
--- NOTE | 2025-07-21 14:40 | Orthopedic Progress Note ---
Date of Service July 21, 2025 Assessment & Plan (1) Closed sacral fracture: Plan: Patient has a structural fracture at S1-2 in the sacrum. She cannot stand or walk at this point secondary to pain. I reviewed the precise nature of the surgery we are planning for tomorrow including recovery times and length of the procedure. I have answered all of her questions and her 's questions to their satisfaction and we will proceed with surgical intervention. She will be n.p.o. after midnight. Admission and Anticipated Discharge Date Admission Date: July 18, 2025 Subjective Patient was seen bedside in room 360. Her was present. She is having a lot of pain anytime she tries to sit up to stand or walk. If she lies still the pain is more tolerable. CT scan and MRI revealed a S1-2 fracture. The plan at this point is to take her to surgery tomorrow to extend her fusion down to the pelvis using iliac bolts. She states that she would like to move forward with surgical intervention at this point as she is having severe pain and cannot stand or walk. She denies any other numbness, tingling, or paresthesias. Physical Exam Physical Exam: On exam she is alert and oriented. She answers questions appropriately. She is able to lift her legs to gravity. Dorsiflexion and plantarflexion are full strength. Her gait was not observed. Her abdomen soft and nontender her calves are supple and nontender. Results & Data Vital Signs (Past 12 Hours) Vital Signs Temp Pulse Resp BP Pulse Ox O2 Del Method 07/21/25 07:06 36.5 C 78 16 132/75 98 Room Air (1) Closed sacral fracture Encounter type: sequela Zone of sacrum fracture: zone II of sacrum Fracture alignment: minimally displaced Qualified Code(s): S32.121S - Minimally displaced Zone II fracture of sacrum, sequela
[2025-07-21] MEDS: BACLOFEN 20 MG TAB PO SCH (15:25)
--- NOTE | 2025-07-21 16:40 | Anesthesiology Consultation ---
Date of Service July 21, 2025 Assessment & Plan Chart Review Chart Review: Acceptable Risk for Surgery and Patient NOT seen in Pre Admission Testing Consults Requested none ASA ASA3 Proposed Anesthesia Anesthesia Type: General History Surgery Operation Date: 07/22/25 13:45 Proposed Procedures p Lumbar Pelvic Fusion with Iliac Bolts - Del Abernathy DO Height/Weight Height: 5 ft 4 in Weight: 65.8 kg Allergies Allergy/AdvReac Type Severity Reaction Status Date / Time No Known Allergies Allergy Verified 07/18/25 20:27 Medications Home Medications Medication Instructions Recorded Confirmed Last Taken acetaminophen 500 mg capsule 1,000 mg PO TID PRN Pain 06/21/25 07/18/25 06/27/25 23:00 amlodipine 10 mg tablet 10 mg PO HS 06/21/25 07/18/25 07/10/25 aspirin 81 mg capsule 81 mg PO [id number] 06/21/25 07/18/25 06/26/25 09:00 cholecalciferol (vitamin D3) 125 250 mcg PO DAILY 06/21/25 07/18/25 07/10/25 mcg (5,000 unit) tablet (Vitamin D3) dicyclomine 10 mg capsule 10 mg PO BID PRN Abdominal 06/21/25 07/18/25 Unknown Discomfort gabapentin 100 mg tablet 100 mg PO TID 06/21/25 07/18/25 07/10/25 ibuprofen 800 mg tablet 800 mg PO Q8H PRN Pain 06/21/25 07/18/25 07/11/25 10:30 naproxen 375 mg tablet 375 mg PO BID PRN Pain 06/21/25 07/18/25 Unknown omeprazole 20 mg tablet,delayed 20 mg PO QAM 06/21/25 07/18/25 07/10/25 release zolpidem 5 mg tablet (Ambien) 10 mg PO HS PRN sleep 06/21/25 07/18/25 06/25/25 22:00 oxycodone-acetaminophen 5 mg-325 1 tab PO Q8H #30 tabs 06/29/25 07/18/25 07/11/25 10:00 mg tablet (Percocet) tramadol 50 mg tablet 50 mg PO Q6H PRN pain, moderate 06/29/25 07/18/25 Unknown #30 tabs cyclobenzaprine 10 mg tablet 5 mg (1/2 x 10 mg) PO Q8 PRN 07/01/25 07/18/25 Unknown muscle spasm #20 tabs oxycodone 5 mg tablet 5 mg PO Q6H PRN pain #30 tabs 07/13/25 07/18/25 Unknown baclofen 20 mg tablet 20 mg PO TID PRN MUSCLE SPASMS 07/18/25 07/18/25 Unknown Active Medications Generic Name Dose Route Start Last Admin Trade Name Freq PRN Reason Stop Dose Admin Acetaminophen 650 mg 07/19/25 00:38 07/21/25 07:48 Acetaminophen 325 Mg Tab PO 08/18/25 00:37 650 mg Q4H PRN Administration pain/fever Amlodipine Besylate 10 mg 07/19/25 21:00 07/20/25 20:04 Amlodipine Besylate 5 Mg Tab PO 08/18/25 20:59 10 mg HS [facility] Administration Aspirin 81 mg 07/19/25 09:00 07/19/25 09:56 Aspirin 81 Mg Ectab PO 08/18/25 08:59 81 mg MoWeFr@0900 [facility] Administration Baclofen 5 mg 07/21/25 14:00 07/21/25 15:25 Baclofen 20 Mg Tab PO 08/20/25 13:59 5 mg TID [facility] Administration Docusate Sodium 100 mg 07/19/25 21:00 07/21/25 07:48 Docusate Sodium 100 Mg Cap PO 08/18/25 20:59 100 mg BID [facility] Administration Gabapentin 100 mg 07/19/25 09:00 07/21/25 13:16 Gabapentin 100 Mg Cap PO 08/18/25 08:59 100 mg TID [facility] Administration Hydromorphone HCl 0.5 mg 07/19/25 00:38 07/19/25 12:55 Hydromorphone Inj 0.5 Mg/0.5 Ml Syr IV 08/02/25 00:37 0.5 mg Q6H PRN Administration Breakthrough Pain Piperacillin Sod/Tazobactam Sod 4.5 gm in 100 mls @ 25 mls/hr 07/19/25 08:00 07/21/25 15:25 Zosyn IV 07/29/25 07:59 0 mls/hr Q8H [facility] Infusion Protocol Oxycodone HCl 5 mg 07/19/25 00:38 07/19/25 16:30 Oxycodone Hcl Ir 5 Mg Tab (Immediate Release) PO 08/02/25 00:37 5 mg Q6H PRN Administration Mod-Sev Pain (Scale 4-10) Pantoprazole Sodium 40 mg 07/19/25 09:00 07/21/25 07:48 Pantoprazole 40 Mg Tab PO 08/18/25 08:59 40 mg QAM [facility] Administration Polyethylene Glycol 17 gm 07/19/25 21:00 07/21/25 07:44 Polyethylene (Miralax) 17 Gm Pack PO 08/18/25 20:59 Not Given BID [facility] Vitamin D 250 mcg 07/19/25 09:00 07/21/25 07:48 Cholecalciferol 125 Mcg (5,000 Units) Tab PO 08/18/25 08:59 250 mcg DAILY [facility] Administration Past Medical History Medical History Acid reflux well controlled Neuropathy bilat feet /legs History of postoperative nausea and vomiting Slow to wake up after anesthesia Cystocele with prolapse mild prolapse Urinary incontinence IBS (irritable bowel syndrome) w/ diarrhea Low back pain HTN (hypertension) anemia HLD S/P epidural hematoma evacuation Exercise / Class Metabolic Activity III < 4 Walking/Shop/Light housework Past Surgical History Surgical History Hx of bilateral cataract extraction Hx of colonoscopy History of foot surgery right - tarsal tunnel History of carpal tunnel release of both wrists Hx of parathyroidectomy removal of adenoma Hx of hysterectomy Past Anesthesia History No Hx of Anesthesia Complications and No Family Hx of Anesthesia Complications History of PONV No Hx of PONV and No Hx of Motion Sickness Social History Smoking Status: Never smoker Do You Dip or Chew Tobacco: No Hx Alcohol Use: No Hx Substance Use: No substance use type: does not use Physical Exam Vital Signs Last Vital Signs Temp 36.8 C 07/21/25 15:42 Pulse 86 07/21/25 15:42 Resp 16 07/21/25 15:42 BP 157/80 H 07/21/25 15:42 Pulse Ox 95 07/21/25 15:42 O2 Del Method Room Air 07/21/25 15:42 Testing Laboratory Results 07/21/25 06:43 07/21/25 06:43 Urine Color Yellow 07/18/25 19:01 Urine Appearance Clear (Clear) 07/18/25 19:01 Urine pH 7.0 (4.5-7.5) 07/18/25 19:01 Ur Specific [place] 1.016 (1.000-1.030) 07/18/25 19:01 Urine Protein Negative (Negative) 07/18/25 19:01 Urine Glucose (UA) Negative (Negative) 07/18/25 19:01 Urine Ketones Negative (Negative) 07/18/25 19:01 Urine Nitrite Negative (Negative) 07/18/25 19:01 Ur Leukocyte Esterase Negative (Negative) 07/18/25 19:01 Urine WBC (Auto) 0-5 /hpf (0-5) 07/18/25 19:01 Urine RBC (Auto) 6-10 /hpf (0-2) H 07/18/25 19:01 U Hyaline Cast (Auto) 0-2 /lpf (0-2) 07/18/25 19:01 U Epithel Cells (Auto) 0-2 /hpf (0-2) 07/18/25 19:01 Urine Bacteria (Auto) None Seen (None Seen) 07/18/25 19:01 Electrocardiogram Date: 06/12/25 Findings: + NSR @ (@ 88)
[2025-07-22 07:55] LABS: Anion Gap 6.0 (3-11); Blood Urea Nitrogen 13.0 mg/dl (6-23); Calcium 9.4 mg/dl (8.6-10.3); Carbon Dioxide 29.0 mmol/L (21-32); Chloride 106.0 mmol/L (98-107); Creatinine Clr Calc Pharmacy 47.9 ml/min; Glucose 114.0 mg/dl (70-99(Fasting)); Magnesium 2.0 mg/dl (1.7-2.4); Potassium 3.9 mmol/L (3.5-5.1); Sodium 141.0 mmol/L (136-145)
[2025-07-22] MEDS ORDERED: LIDOCAINE 2% 2 ML VIAL/AMP(20MG/ML) INFIL ONE (10:21)
[2025-07-22] MEDS ORDERED: PROPOFOL IV EMULSION 10 MG/ML 20 ML VIAL IV ONE (10:21)
[2025-07-22] MEDS ORDERED: GLYCOPYRROLATE 0.2 MG/ML VIAL ONE (10:21)
[2025-07-22] MEDS ORDERED: DEXAMETHASONE SOD INJ 4 MG/ML VIAL ONE (10:21)
[2025-07-22] MEDS ORDERED: MIDAZOLAM HCL 1 MG/ML 2ML VIAL ONE (10:21)
[2025-07-22] MEDS ORDERED: ONDANSETRON INJ 2 MG/ML 2 ML VIAL ONE (10:21)
[2025-07-22] MEDS ORDERED: ROCURONIUM BROMIDE 10 MG/ML 5 ML VIAL IV ONE (10:21)
[2025-07-22] MEDS ORDERED: SUGAMMADEX SODIUM 200 MG/2 ML VIAL IV ONE (10:22)
--- NOTE | 2025-07-22 13:17 | Hospitalist Progress Note ---
Date of Service July 22, 2025 Assessment & Plan (1) Closed sacral fracture: Plan: 80-year-old female with past medical history significant for hypertension, diverticulitis, irritable bowel syndrome, urinary incontinence secondary to cystocele with prolapse who had back surgery done on and was again admitted on 07/11/2025 for postop lumbar epidural hematoma s/p evacuation and was discharged on 07/14/2025 comes back with complaints of back pain and left hip pain. Patient's pain is going for last 2 weeks. Having some difficulty ambulating. Ambulating with a walker. Constipated. Denies any bloody stools. Patient was also having urinary retention status post Carmona catheter in the ER. Pain is more in the left hip region. Denies any fevers. No chest pain or shortness of breath. No nausea. No headache. No neck pain. Vision is okay. No runny nose or sore throat. No cough. Appetite is okay. Hemodynamics are okay. 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 Closed sacral fracture without any history of significant trauma and/or fall Recent back surgery- initial lumbar surgery on 06/28/2025 and second surgery for hematoma evacuation on 07/11/2025 Presented with increasing pain in the pelvis and left hip and bowel has not been moving for some time Not being able to ambulate due to pain Appreciate orthospine input and recommendation for possible surgery on Tuesday Control of pain with intravenous and oral medication now Her pain seems to be reasonably controlled with current medications Awaiting surgery on Tuesday Remains free from any symptoms at rest and complaining to have spasmodic pain with movement Will give smaller doses of baclofen regularly Denies any more spasmodic pain following scheduled baclofen Will have lumbar pelvic fusion with iliac bolts this afternoon Hypokalemia Likely secondary to decreased intake Will supplement and recheck No more hypokalemia Imaging studies as below: MRI shows: 1. Interval transversely oriented small fluid signal intensity collection at the level of the S1 vertebral body with associated marrow edematous changes and mild anterior translation and subtle focal kyphosis. This is only included on the sagittal series. Findings most worrisome for fracture. Etiology is uncertain. Infectious process is not excluded. Recommend clinical correlation, CT evaluation and contrast-enhanced MRI evaluation. CT pelvis: 1. Fractures of the bilateral sacral ala with a transverse component of the level of S1. 2. Mucosal thickening in the sigmoid colon, diverticulitis versus mucosal mass. Correlate clinically and consider colonoscopy. Possible diverticulitis Possible mucosal mass on CT scan History of diverticulitis as per patient Patient states she had colonoscopy 5 years ago Empiric Zosyn and will be continued N.p.o. for now, IV fluids Appreciate surgery input and recommendation Has been tolerating advance diet and will continue intravenous antibiotic Has been tolerating advance diet without any abdominal symptomscontinue current antibiotic Denies any abdominal discomfort and has been tolerating regular dietWill continue current antibiotic intravenously Constipation History of IBS Has not had a bowel movement for some time about 5 days Will increase MiraLAX to 2 times a day and add Colace twice daily Urinary retention History of urinary incontinence Status post Carmona Hypertension On amlodipine Will monitor GERD Omeprazole DVT prophylaxis SCDs for now Further anticoagulation per Ortho Full code. Admission and Anticipated Discharge Date Admission Date: July 18, 2025 Subjective 07/19/2025 The patient was seen and examined in medical floor She has been complaining of severe pain in the pelvis and has not moved her bowel for some time She is frustrated with her condition and wants to be better Denies any chest pain, shortness of breath or palpitation, no abdominal pain nausea no vomiting 07/20/2025 The patient was seen and examined in medical floor in presence of the She complains of spasmodic pain involving the left hip that goes down to the left leg Her pain is not yet well-controlled Denies any fever and no chills and has been tolerating advance diet 07/21/2025 The patient was seen and examined in medical floor She has been much better today but is still complains to be spasm involving the left hip and back with movements Denies any other significant symptoms 07/22/2025 The patient was seen and examined in medical floor Her pain remains controlled and so is the spasm Numbness of the lower legs and feet remains the same She will have proposed surgery this afternoon Review of Systems Review of Systems: All systems reviewed and are unremarkable except as noted below Physical Exam Physical Exam: Lying in bed with distress due to pelvic pain and left hip pain Constitutional: well developed, well nourished, + ill appearing and average body habitus Eyes: PERRL, conjunctivae normal, anicteric sclerae ENMT: external ear and nose normal, oropharynx normal Neck: trachea midline, no thyromegaly Respiratory: no respiratory distress Auscultation: lungs clear to auscultation bilaterally Cardiovascular: Rate/Rhythm: regular rate and regular rhythm; not tachycardic Heart Sounds: normal S1 and normal S2; no murmur Extremities: no edema Gastrointestinal (Abdomen): Inspection/Auscultation: normal bowel sounds; abdo men not distended Percussion/Palpation: abdomen soft; abdomen nontender Neurologic: moves all extremities; + abnormal touch/pain/proprioception ( distorted touch sensation involving the lower extremities mainly the legs) and no focal motor deficits Lymphatic: no cervical or axillary lymphadenopathy Results & Data Results & Data Vital Signs (Past 12 Hours) Vital Signs Temp Pulse Resp BP Pulse Ox O2 Del Method 07/22/25 07:00 36.2 C L 81 16 135/81 98 Room Air Laboratory Results [facility] 07/22/25 07:15 Sodium 141 Potassium 3.9 Chloride 106 Carbon Dioxide 29 BUN 13 Creatinine 0.89 Glucose 114 H Calcium 9.4 Medications Administered Current Inpatient Medications Acetaminophen (Acetaminophen 325 Mg Tab) 650 mg PO Q4H PRN PRN Reason: pain/fever Stop: 08/18/25 00:37 Last Admin: 07/22/25 00:30 Dose: 650 mg Amlodipine Besylate (Amlodipine Besylate 5 Mg Tab) 10 mg PO HS [facility] Stop: 08/18/25 20:59 Last Admin: 07/21/25 20:16 Dose: 10 mg Aspirin (Aspirin 81 Mg Ectab) 81 mg PO MoWeFr@0900 [facility] Stop: 08/18/25 08:59 Last Admin: 07/22/25 08:22 Dose: 81 mg Baclofen (Baclofen 20 Mg Tab) 5 mg PO TID [facility] Stop: 08/20/25 13:59 Last Admin: 07/22/25 08:24 Dose: 5 mg Dicyclomine HCl (Dicyclomine Hcl 10 Mg Cap) 10 mg PO BID PRN PRN Reason: Abdominal Discomfort Stop: 08/18/25 00:37 Docusate Sodium (Docusate Sodium 100 Mg Cap) 100 mg PO BID [facility] Stop: 08/18/25 20:59 Last Admin: 07/22/25 08:22 Dose: Not Given Gabapentin (Gabapentin 100 Mg Cap) 100 mg PO TID [facility] Stop: 08/18/25 08:59 Last Admin: 07/22/25 08:23 Dose: 100 mg Hydromorphone HCl (Hydromorphone Inj 0.5 Mg/0.5 Ml Syr) 0.5 mg IV Q6H PRN PRN Reason: Breakthrough Pain Stop: 08/02/25 00:37 Last Admin: 07/19/25 12:55 Dose: 0.5 mg Piperacillin Sod/Tazobactam Sod (Zosyn) 4.5 gm in 100 mls @ 25 mls/hr IV Q8H [facility]; Protocol Stop: 07/29/25 07:59 Last Infusion: 07/22/25 12:18 Dose: Infused Oxycodone HCl (Oxycodone Hcl Ir 5 Mg Tab (Immediate Release)) 5 mg PO Q6H PRN PRN Reason: Mod-Sev Pain (Scale 4-10) Stop: 08/02/25 00:37 Last Admin: 07/22/25 03:07 Dose: 5 mg Pantoprazole Sodium (Pantoprazole 40 Mg Tab) 40 mg PO QAM [facility] Stop: 08/18/25 08:59 Last Admin: 07/22/25 08:23 Dose: 40 mg Polyethylene Glycol (Polyethylene (Miralax) 17 Gm Pack) 17 gm PO BID [facility] Stop: 08/18/25 20:59 Last Admin: 07/22/25 08:22 Dose: Not Given Vitamin D (Cholecalciferol 125 Mcg (5,000 Units) Tab) 250 mcg PO DAILY [facility] Stop: 08/18/25 08:59 Last Admin: 07/22/25 08:23 Dose: 250 mcg Zolpidem Tartrate (Zolpidem Tartrate 5 Mg Tab) 10 mg PO HS PRN PRN Reason: sleep Stop: 08/18/25 00:37 (1) Closed sacral fracture Encounter type: sequela Fracture alignment: minimally displaced Zone of sacrum fracture: zone II of sacrum Qualified Code(s): S32.121S - Minimally displaced Zone II fracture of sacrum, sequela
[2025-07-22] MEDS ORDERED: PROMETHAZINE HCL 6.25 MG in SODIUM CHLORIDE 0.9% 50 ML IV PRN (13:32)
[2025-07-22] MEDS ORDERED: ONDANSETRON INJ 2 MG/ML 2 ML VIAL IV PRN ×2 (13:32→16:46)
[2025-07-22] MEDS ORDERED: HYDROmorphone INJ 1 MG/ML SYRINGE IV PRN (13:32)
[2025-07-22] MEDS ORDERED: ATROPINE SULFATE 0.1 MG/ML 10ML SYR IV PRN (13:32)
[2025-07-22] MEDS: SCOPOLAMINE 1 MG/72 HR TDSY PATCH TD ONE (13:44)
--- NOTE | 2025-07-22 13:44 | History & Physical Bridge Note ---
Date of Service July 22, 2025 History & Physical Bridge Note I have examined the patient, reviewed the History & Physical and in the interval since the performance of the History & Physical I have noted the following changes of clinical significance: no changes noted Patient has continued severe back and leg pain with any ambulation. Subsequently we are performing a lumbar pelvic fusion.
[2025-07-22] MEDS: ceFAZolin 330 MG/ML 1 GM VIAL ONE ×2 (14:34→15:34)
[2025-07-22] MEDS: BUPIVACAINE/EPINEPHRINE 0.25% 1:200,000 30 ML VIAL ONE (14:39)
[2025-07-22] MEDS ORDERED: ceFAZolin 330 MG/ML 1 GM VIAL ONE (15:30)
[2025-07-22] MEDS: IOPAMIDOL INJ 61% 15 ML VIAL INSTIL ONE (15:35)
[2025-07-22] MEDS: FLOSEAL HEMOSTATIC MATRIX 10ML TOP ONE (15:35)
[2025-07-22] MEDS ORDERED: PHENYLEPHRINE 100MCG/ML 5ML SYR ONE (15:43)
--- NOTE | 2025-07-22 15:51 | Operative Report ---
Post Operative Report Pre & Post Diagnosis Operation Date: 07/22/25 13:45 Pre-Op Diagnosis: Sacral fracture Post-Op Diagnosis: Sacral fracture I identified the patient and participated in the time-out.: Yes Procedure Operation Date: 07/22/25 13:45 Actual Procedures #1 removal of S1 pedicle screws and rods bilaterally. #2 lumbar pelvic fusion with bilateral iliac bolts, larger bilateral S1 screws and longer rods. #3 kyphoplasty S1 vertebral body. #4 bilateral sacroiliac joint fusions. #5 placement of Proteus combined with Koros bone graft in the bilateral SI joints and posterolateral gutters L5-S1. Surgeon Del Abernathy, Buyer Assistant Alecia Wade Estimated Blood Loss 250 Findings Consistent with Post-Op Diagnosis Specimens None Indications This is a 80-year-old female who presents with incapacitating back pain and inability ambulate. Imaging demonstrates evidence of a sacral fracture involving S1 and S2. In light of the inherent instability and large fusion mass above the fracture she had severe stress across this region and subsequently requires lumbar pelvic fusion to stabilize the fracture site and begin therapy. Description of Procedure Patient was met with identified and forms obtained. Patient was then taken to operative suite underwent intubation placed in a prone position on the Kai table with a chest padded bolsters. All bony prominences well-padded eyes inspected to ensure no external pressure placed upon them. This point lumbar spine was prepped and draped in normal sterile fashion. Sharp dissection with the assistance of Bovie cautery from down to and exposing the instrumentation L3-S1 bilaterally as well as the bilateral sacroiliac joints and medial superior aspect of the iliac crest. I then proceeded remove the end caps and rods bilaterally. The S1 screws were grossly loose bilaterally. They were subsequently moved. All the screws were tested and determined to be quite stable. I then performed a kyphoplasty of the S1 vertebral body followed by placement of 2 larger S1 pedicle screws bilaterally. Bilateral iliac bolts were then placed with the assistance of fluoroscopy. I then burred and curetted out the bilateral SI joints and packed them with Proteus and Koros bone graft. Rods were then contoured and locked into position bilaterally from L3 to the iliac bolts. A new cross-link was attached. Incision was then copiously irrigated. 15 round LANG drain inserted. The incision was then closed with 1 Vicryl the fascia 2-0 Vicryl subcutaneously and 4 Monocryl for final skin closure. Steri- Strips sterile dressing placed. Patient waken taken PACU stable condition. Please note Alecia Wade was present at the entire procedure and while the patient positioning complex portion of the surgery and final skin closure. I attest to the content of the Intraoperative Record and any orders documented therein. Any exceptions are noted below.
--- NOTE | 2025-07-22 16:02 | Fluoroscopy Report ---
FL sacrum CLINICAL HISTORY: ILIAC BOLTS COMPARISON STUDY: None FLUOROSCOPY TIME: 18 seconds FLUOROSCOPY IMAGES: 4 EXPOSURE DOSE: 22 mGy FINDINGS: Fluoroscopy was provided for lumbosacral surgery. IMPRESSION: Intraoperative fluoroscopy. ACT 112: Negative or not required by law. Electronically signed by: Bill Noble M.D. 07/22/2025 4:01 PM
[2025-07-22] MEDS ORDERED: SOD PHOSPHATE/SOD BIPHOSPHATE ENEMA 132 ML BTL PR PRN (16:46)
[2025-07-22] MEDS ORDERED: ALUMINUM/MAGNESIUM SUSP 30 ML UDC PO PRN (16:46)
[2025-07-22] MEDS ORDERED: METOCLOPRAMIDE HCL INJ 5 MG/ML 2 ML VIAL IV PRN (16:46)
[2025-07-22] MEDS ORDERED: NON-FORMULARY MEDICATION (Acetaminophen 500 mg Capsule) PO PRN (16:46)
[2025-07-22] MEDS ORDERED: diphenhydrAMINE Capsule 25 MG CAP PO PRN (16:46)
[2025-07-22] MEDS ORDERED: ACETAMINOPHEN 1,000 MG/100 ML VIAL IV PRN (16:46)
[2025-07-22] MEDS ORDERED: DO NOT ADMINISTER PNEUMOCOCCAL VACCINE PRN (16:46)
[2025-07-22] MEDS ORDERED: LORazepam Inj 0.5 MG in SYRINGE 0.25 ML IV PRN (16:46)
[2025-07-22] MEDS ORDERED: FAMOTIDINE 20 MG TAB PO PRN (16:46)
[2025-07-22] MEDS ORDERED: ONDANSETRON 4 MG OD TAB PO PRN (16:46)
[2025-07-22] MEDS ORDERED: MAGNESIUM HYDROXIDE SUSP 30 ML UDC PO PRN (16:46)
[2025-07-22] MEDS ORDERED: DO NOT ADMINISTER FLU VACCINE PRN (16:46)
[2025-07-22] MEDS ORDERED: NALOXONE HCL 0.4 MG/1 ML VIAL/CARP IV PRN (16:46)
[2025-07-22] MEDS ORDERED: PROMETHAZINE 12.5 MG/50.5 ML BAG IV PRN (16:46)
[2025-07-22] MEDS ORDERED: LORazepam 0.5 MG TAB PO PRN (16:46)
--- NOTE | 2025-07-22 16:55 | Anesthesiology Progress Note ---
Date of Service July 22, 2025 Anesthesia Post Procedure Vital Signs Vital Signs: Temp Pulse Pulse Resp BP Pulse Ox O2 Del Method 07/22/25 16:46 36.4 C L 77 14 147/70 H 100 Nasal Cannula 07/22/25 16:30 36.7 C 75 12 144/61 H 94 Room Air 07/22/25 16:20 77 16 144/68 H 100 Oxymask 07/22/25 16:10 75 15 151/64 H 100 Oxymask 07/22/25 16:00 36.8 C 67 12 150/66 H 100 Oxymask 07/22/25 13:14 36.8 C 88 18 155/75 H 97 Room Air 07/22/25 07:00 36.2 C L 81 16 135/81 98 Room Air 07/21/25 22:53 36.4 C L 80 16 145/75 H 97 Room Air O2 Flow Rate 07/22/25 16:46 2 07/22/25 16:30 07/22/25 16:20 2 07/22/25 16:10 4 07/22/25 16:00 6 07/22/25 13:14 07/22/25 07:00 07/21/25 22:53 Pain Intensity Left Hip: Pain Intensity: 3 Transfer of Care Handoff Completed per policy Notes Mental Status: alert / awake / arousable and participated in evaluation Patient Amnestic to Procedure: Yes Nausea / Vomiting: adequately controlled Pain: adequately controlled Airway Patency, RR, SpO2: stable & adequate BP & HR: stable & adequate Hydration State: stable & adequate Anesthetic Complications: no major complications apparent and Pt Satisfied with anesthetic care
[2025-07-22] MEDS: LACTATED RINGER'S 1,000 ML IV SCH (17:51)
[2025-07-22] MEDS: ACETAMINOPHEN 500 MG TAB PO PRN (21:03)
[2025-07-22] MEDS: DOCUSATE SODIUM/SENNA 50/8.6MG TAB PO SCH (21:05)
[2025-07-23] MEDS: POLYETHYLENE (MIRALAX) 17 GM PACK PO SCH (05:44)
[2025-07-23 09:00] LABS: Hematocrit (blood only) 27.8 % (37.0-47.0); Hemoglobin 9.3 g/dl (12.0-16.0); Immature Granulocytes # (auto) 0.05 K/uL (0.01-0.20); Immature Granulocytes % (auto) 0.5 %; Mean Corpuscular Hemoglobin 29.7 pg (25.0-34.0); Mean Corpuscular Volume 88.8 fL (80.0-100.0); Platelet Count 289 K/uL (130-400); RDW Standard Deviation 39.6 fL (36.4-46.3); Red Blood Count 3.13 M/uL (4.20-5.40); White Blood Count 10.70 K/ul (4.8-10.8)
[2025-07-23 09:17] LABS: Anion Gap 7.0 (3-11); Blood Urea Nitrogen 17.0 mg/dl (6-23); Calcium 9.4 mg/dl (8.6-10.3); Carbon Dioxide 28.0 mmol/L (21-32); Chloride 104.0 mmol/L (98-107); Creatinine Clr Calc Pharmacy 49.0 ml/min; Glucose 111.0 mg/dl (70-99(Fasting)); Potassium 3.9 mmol/L (3.5-5.1); Sodium 139.0 mmol/L (136-145)
--- NOTE | 2025-07-23 09:28 | Orthopedic Progress Note ---
Date of Service July 23, 2025 Assessment & Plan (1) Multilevel lumbosacral spondylosis with radiculopathy: Plan: Today we will initiate physical therapy assess her progress. May consider a course of steroids regarding the sciatica pending her results today. Admission and Anticipated Discharge Date Admission Date: July 18, 2025 Subjective Back pain is controlled left buttock pain sciatica still troublesome and intermittent in nature. Physical Exam Physical Exam: On exam she is in bed. Does appear comfortable. Has good strength testing. There are some tenderness palpation of the left trochanteric musculature as well as the sciatic notch. Results & Data Vital Signs (Past 12 Hours) Vital Signs Temp Pulse Resp BP Pulse Ox O2 Del Method 07/23/25 07:54 36.8 C 84 16 120/54 L 95 Room Air 07/23/25 03:00 36.5 C 71 18 107/67 95 Room Air 07/22/25 23:00 36.6 C 71 18 108/69 95 Room Air Queries Orthopedic Spine Vertebral Fracture Secondary to Osteoporosis: Yes
--- NOTE | 2025-07-23 11:57 | Hospitalist Progress Note ---
Date of Service July 23, 2025 Assessment & Plan (1) Closed sacral fracture: Plan: 80-year-old female with past medical history significant for hypertension, diverticulitis, irritable bowel syndrome, urinary incontinence secondary to cystocele with prolapse who had back surgery done on and was again admitted on 07/11/2025 for postop lumbar epidural hematoma s/p evacuation and was discharged on 07/14/2025 comes back with complaints of back pain and left hip pain. Patient's pain is going for last 2 weeks. Having some difficulty ambulating. Ambulating with a walker. Constipated. Denies any bloody stools. Patient was also having urinary retention status post Carmona catheter in the ER. Pain is more in the left hip region. Denies any fevers. No chest pain or shortness of breath. No nausea. No headache. No neck pain. Vision is okay. No runny nose or sore throat. No cough. Appetite is okay. Hemodynamics are okay. 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 Closed sacral fracture without any history of significant trauma and/or fall Recent back surgery- initial lumbar surgery on 06/28/2025 and second surgery for hematoma evacuation on 07/11/2025 Presented with increasing pain in the pelvis and left hip and bowel has not been moving for some time Not being able to ambulate due to pain Appreciate orthospine input and recommendation for possible surgery on Tuesday Control of pain with intravenous and oral medication now Her pain seems to be reasonably controlled with current medications Awaiting surgery on Tuesday Remains free from any symptoms at rest and complaining to have spasmodic pain with movement Will give smaller doses of baclofen regularly Denies any more spasmodic pain following scheduled baclofen S/P lumbar pelvic fusion with iliac bolts on 07/22/2025 Denies any significant pain following surgery but he still has left hip area pain as before with spasm Advised to continue with the physical therapy and will likely need placement Hypokalemia Likely secondary to decreased intake Will supplement and recheck No more hypokalemia Imaging studies as below: MRI shows: 1. Interval transversely oriented small fluid signal intensity collection at the level of the S1 vertebral body with associated marrow edematous changes and mild anterior translation and subtle focal kyphosis. This is only included on the sagittal series. Findings most worrisome for fracture. Etiology is uncertain. Infectious process is not excluded. Recommend clinical correlation, CT evaluation and contrast-enhanced MRI evaluation. CT pelvis: 1. Fractures of the bilateral sacral ala with a transverse component of the level of S1. 2. Mucosal thickening in the sigmoid colon, diverticulitis versus mucosal mass. Correlate clinically and consider colonoscopy. Possible diverticulitis Possible mucosal mass on CT scan History of diverticulitis as per patient Patient states she had colonoscopy 5 years ago Empiric Zosyn and will be continued N.p.o. for now, IV fluids Appreciate surgery input and recommendation Has been tolerating advance diet and will continue intravenous antibiotic Has been tolerating advance diet without any abdominal symptomscontinue current antibiotic Denies any abdominal discomfort and has been tolerating regular dietWill continue current antibiotic intravenously She has been tolerating regular diet and intravenous antibiotics will be changed to oral Augmentin to finish the course of a total of 10 days. Constipation History of IBS Has not had a bowel movement for some time about 5 days Will increase MiraLAX to 2 times a day and add Colace twice daily Urinary retention History of urinary incontinence Status post Carmona-Will take out Carmona as able Hypertension On amlodipine Will monitor GERD Omeprazole DVT prophylaxis SCDs for now Further anticoagulation per Ortho Full code. Admission and Anticipated Discharge Date Admission Date: July 18, 2025 Subjective 07/19/2025 The patient was seen and examined in medical floor She has been complaining of severe pain in the pelvis and has not moved her bowel for some time She is frustrated with her condition and wants to be better Denies any chest pain, shortness of breath or palpitation, no abdominal pain nausea no vomiting 07/20/2025 The patient was seen and examined in medical floor in presence of the She complains of spasmodic pain involving the left hip that goes down to the left leg Her pain is not yet well-controlled Denies any fever and no chills and has been tolerating advance diet 07/21/2025 The patient was seen and examined in medical floor She has been much better today but is still complains to be spasm involving the left hip and back with movements Denies any other significant symptoms 07/22/2025 The patient was seen and examined in medical floor Her pain remains controlled and so is the spasm Numbness of the lower legs and feet remains the same She will have proposed surgery this afternoon 07/23/2025 The patient was seen and examined in medical floor She is status post lumbar pelvic fusion with bilateral iliac bolts as mentioned in operative note by the orthospine Her pain in the left hip area and spasm is not any better Denies any other significant symptoms Review of Systems Review of Systems: All systems reviewed and are unremarkable except as noted below Physical Exam Physical Exam: Lying in bed with distress due to pelvic pain and left hip pain Constitutional: well developed, well nourished, + ill appearing and average body habitus Eyes: PERRL, conjunctivae normal, anicteric sclerae ENMT: external ear and nose normal, oropharynx normal Neck: trachea midline, no thyromegaly Respiratory: no respiratory distress Auscultation: lungs clear to auscultation bilaterally Cardiovascular: Rate/Rhythm: regular rate and regular rhythm; not tachycardic Heart Sounds: normal S1 and normal S2; no murmur Extremities: no edema Gastrointestinal (Abdomen): Inspection/Auscultation: normal bowel sounds; abdomen not distended Percussion/Palpation: abdomen soft; abdomen nontender Musculoskeletal: No acute arthritis involving any of the joint Neurologic: moves all extremities; + abnormal touch/pain/proprioception ( distorted touch sensation involving the lower extremities mainly the legs) and no focal motor deficits Lymphatic: no cervical or axillary lymphadenopathy Results & Data Results & Data Vital Signs (Past 12 Hours) Vital Signs Temp Pulse Resp BP Pulse Ox O2 Del Method 07/23/25 07:54 36.8 C 84 16 120/54 L 95 Room Air 07/23/25 03:00 36.5 C 71 18 107/67 95 Room Air Laboratory Results Short CBC 07/23/25 Range/Units 08:34 WBC 10.70 (4.8-10.8) K/ul Hgb 9.3 L (12.0-16.0) g/dl Hct 27.8 L (37.0-47.0) % Plt Count 289 (130-400) K/uL BMP 07/23/25 08:34 Sodium 139 Potassium 3.9 Chloride 104 Carbon Dioxide 28 BUN 17 Creatinine 0.87 Glucose 111 H Calcium 9.4 Medications Administered Current Inpatient Medications Acetaminophen (Acetaminophen 325 Mg Tab) 650 mg PO Q4H PRN PRN Reason: pain/fever Stop: 08/18/25 00:37 Last Admin: 07/22/25 00:30 Dose: 650 mg Acetaminophen (Acetaminophen 500 Mg Tab) 1,000 mg PO Q8H PRN PRN Reason: MILD Pain (1,2,3) & Pre PT Stop: 08/21/25 16:45 Last Admin: 07/22/25 21:03 Dose: 1,000 mg Al Hydrox/Mg Hydrox/Simethicone (Aluminum/Magnesium Susp 30 Ml Udc) 30 ml PO Q6H PRN PRN Reason: Dyspepsia Stop: 08/21/25 16:45 Amlodipine Besylate (Amlodipine Besylate 5 Mg Tab) 10 mg PO [facility] Stop: 08/18/25 20:59 Last Admin: 07/22/25 21:05 Dose: 10 mg Amoxicillin/Clavulanate Potassium (Amoxicillin/Clavulanate 875 Mg Tab) 1 tab PO BIDM [facility]; Protocol Stop: 08/02/25 16:59 Aspirin (Aspirin 81 Mg Ectab) 81 mg PO MoWeFr@[id number] [facility] Stop: 08/18/25 08:59 Last Admin: 07/22/25 08:22 Dose: 81 mg Baclofen (Baclofen 20 Mg Tab) 5 mg PO TID [facility] Stop: 08/20/25 13:59 Last Admin: 07/23/25 09:10 Dose: 5 mg Bisacodyl (Bisacodyl 10 Mg Supp) 10 mg OK DAILY PRN PRN Reason: Constipation Stop: 08/21/25 16:45 Cyclobenzaprine HCl (Cyclobenzaprine Hcl 5 Mg Tab) 5 mg PO Q8 PRN PRN Reason: muscle spasm Stop: 08/21/25 16:45 Dicyclomine HCl (Dicyclomine Hcl 10 Mg Cap) 10 mg PO BID PRN PRN Reason: Abdominal Discomfort Stop: 08/18/25 00:37 Diphenhydramine HCl (Diphenhydramine Capsule 25 Mg Cap) 25 mg PO Q6H PRN PRN Reason: Allergic Rhinitis/Insomnia Stop: 08/21/25 16:45 Docusate Sodium (Docusate Sodium 100 Mg Cap) 100 mg PO BID [facility] Stop: 08/18/25 20:59 Last Admin: 07/23/25 09:07 Dose: Not Given Famotidine (Famotidine 20 Mg Tab) 20 mg PO Q12H PRN PRN Reason: Dyspepsia Stop: 08/21/25 16:45 Gabapentin (Gabapentin 100 Mg Cap) 100 mg PO TID [facility] Stop: 08/18/25 08:59 Last Admin: 07/23/25 09:10 Dose: 100 mg Hydromorphone HCl (Hydromorphone Inj 0.5 Mg/0.5 Ml Syr) 0.5 mg IV Q6H PRN PRN Reason: Breakthrough Pain Stop: 08/02/25 00:37 Last Admin: 07/19/25 12:55 Dose: 0.5 mg Hydroxyzine HCl (Hydroxyzine Hcl 25 Mg Tab) 25 mg PO Q8H PRN PRN Reason: Anxiety Stop: 08/21/25 16:45 Acetaminophen (Ofirmev) 1,000 mg in 100 mls @ 400 mls/hr IV Q8H PRN PRN Reason: MILD Pain (1,2,3) & Pre PT Stop: 07/23/25 16:47 Promethazine HCl (Phenergan) 12.5 mg in 50.5 mls @ 202 mls/hr IV Q6H PRN PRN Reason: Nausea And Vomiting Stop: 08/21/25 16:45 Lorazepam 0.5 mg/ Syringe 0.5 mls @ 2 mls/min IV Q8H PRN PRN Reason: Sedation/Anxiety Stop: 08/21/25 16:45 Influenza Virus Vaccine Quadrival (Do Not Administer Flu Vaccine) 1 each N/A PRN PRN PRN Reason: Notification Stop: 08/21/25 16:45 Lorazepam (Lorazepam 0.5 Mg Tab) 0.5 mg PO Q8H PRN PRN Reason: Sedation/Anxiety Stop: 08/21/25 16:45 Magnesium Hydroxide (Magnesium Hydroxide Susp 30 Ml Udc) 30 ml PO Q24H PRN PRN Reason: Constipation Stop: 08/21/25 16:45 Metoclopramide HCl (Metoclopramide Hcl Inj 5 Mg/Ml 2 Ml Vial) 10 mg IV Q6H PRN PRN Reason: Nausea &/or Vomiting Stop: 08/21/25 16:45 Naloxone HCl (Naloxone Hcl 0.4 Mg/1 Ml Vial/Carp) 0.1 mg IV Q5M PRN PRN Reason: Oversedation/Resp depression Stop: 08/21/25 16:45 Ondansetron HCl (Ondansetron Inj 2 Mg/Ml 2 Ml Vial) 4 mg IV Q6H PRN PRN Reason: Nausea &/or Vomiting Stop: 08/21/25 16:45 Ondansetron HCl (Ondansetron 4 Mg Od Tab) 4 mg PO Q6H PRN PRN Reason: Nausea Stop: 08/21/25 16:45 Oxycodone HCl (Oxycodone Hcl Ir 5 Mg Tab (Immediate Release)) 5 mg PO Q6H PRN PRN Reason: pain Stop: 08/05/25 16:45 Pantoprazole Sodium (Pantoprazole 40 Mg Tab) 40 mg PO QAM [facility] Stop: 08/18/25 08:59 Last Admin: 07/23/25 09:10 Dose: 40 mg Pneumococcal Polyvalent Vaccine (Do Not Administer Pneumococcal Vaccine) 1 each N/A PRN PRN PRN Reason: Notification Stop: 08/21/25 16:45 Polyethylene Glycol (Polyethylene (Miralax) 17 Gm Pack) 17 gm PO BID [facility] Stop: 08/18/25 20:59 Last Admin: 07/23/25 09:07 Dose: Not Given Polyethylene Glycol (Polyethylene (Miralax) 17 Gm Pack) 17 gm PO Q6 [facility] Stop: 08/22/25 05:59 Last Admin: 07/23/25 11:43 Dose: Not Given Senna/Docusate Sodium (Docusate Sodium/Senna 50/8.6mg Tab) 2 tab PO HS [facility] Stop: 08/21/25 20:59 Last Admin: 07/22/25 21:05 Dose: Not Given Sodium Biphosphate/Sodium Phosphate (Sod Phosphate/Sod Biphosphate Enema 132 Ml Btl) 132 ml OK ONE PRN PRN Reason: Constipation Stop: 08/21/25 16:45 Tramadol HCl (Tramadol Hcl 50 Mg Tablet) 50 mg PO Q6H PRN PRN Reason: pain, moderate Stop: 08/21/25 16:45 Last Admin: 07/22/25 17:06 Dose: 50 mg Vitamin D (Cholecalciferol 125 Mcg (5,000 Units) Tab) 250 mcg PO DAILY [facility] Stop: 08/18/25 08:59 Last Admin: 07/23/25 09:10 Dose: 250 mcg Zolpidem Tartrate (Zolpidem Tartrate 5 Mg Tab) 10 mg PO HS PRN PRN Reason: sleep Stop: 08/18/25 00:37 (1) Closed sacral fracture Encounter type: sequela Fracture alignment: minimally displaced Zone of sacrum fracture: zone II of sacrum Qualified Code(s): S32.121S - Minimally displaced Zone II fracture of sacrum, sequela
[2025-07-23] MEDS: AMOXICILLIN/CLAVULANATE 875 MG TAB PO SCH (17:11)
[2025-07-23] MEDS: CYCLOBENZAPRINE HCL 5 MG TAB PO PRN (20:06)
--- NOTE | 2025-07-24 08:25 | Orthopedic Progress Note ---
Date of Service July 24, 2025 Assessment & Plan (1) Lumbar radiculopathy: Plan: I will initiate a course of IV Decadron over the next 24 to 48 hours to see if this provides any relief. Will continue with therapy as tolerated. Admission and Anticipated Discharge Date Admission Date: July 18, 2025 Subjective Patient struggling with significant left sciatica. It has been unremitting in nature. She was able to tolerate minimal therapy yesterday. Physical Exam Physical Exam: On exam she has obvious distress. She does however have full sensation to cold and light touch lower extremities. Motor is intact. Results & Data Vital Signs (Past 12 Hours) Vital Signs Temp Pulse Resp BP Pulse Ox O2 Del Method 07/24/25 08:03 36.7 C 84 14 129/71 94 Room Air Queries Orthopedic Spine Vertebral Fracture Secondary to Osteoporosis: Yes
[2025-07-24] MEDS: dexAMETHasone 8 MG in SYRINGE 0 ML IV SCH (13:47)
--- NOTE | 2025-07-24 16:58 | Hospitalist Progress Note ---
Date of Service July 24, 2025 Assessment & Plan (1) Closed sacral fracture: Plan: 80-year-old female with past medical history significant for hypertension, diverticulitis, irritable bowel syndrome, urinary incontinence secondary to cystocele with prolapse who had back surgery done on and was again admitted on 07/11/2025 for postop lumbar epidural hematoma s/p evacuation and was discharged on 07/14/2025 comes back with complaints of back pain and left hip pain. Patient's pain is going for last 2 weeks. Having some difficulty ambulating. Ambulating with a walker. Constipated. Denies any bloody stools. Patient was also having urinary retention status post Carmona catheter in the ER. Pain is more in the left hip region. Denies any fevers. No chest pain or shortness of breath. No nausea. No headache. No neck pain. Vision is okay. No runny nose or sore throat. No cough. Appetite is okay. Hemodynamics are okay. 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 Closed sacral fracture without any history of significant trauma and/or fall Lumbar radiculopathy Postoperative acute blood loss anemia Recent back surgery- initial lumbar surgery on 06/28/2025 and second surgery for hematoma evacuation on 07/11/2025 Presented with increasing pain in the pelvis and left hip and bowel has not been moving for some time, Not being able to ambulate due to pain --MRI:Interval transversely oriented small fluid signal intensity collection at the level of the S1 vertebral body with associated marrow edematous changes and mild anterior translation and subtle focal kyphosis. This is only included on the sagittal series. Findings most worrisome for fracture. Etiology is uncertain. Infectious process is not excluded. Recommend clinical correlation, CT evaluation and contrast-enhanced MRI evaluation. CT pelvis:Fractures of the bilateral sacral ala with a transverse component of the level of S1. --S/P removal of S1 pedicle screws and rods bilaterally. #2 lumbar pelvic fusion with bilateral iliac bolts, larger bilateral S1 screws and longer rods. #3 kyphoplasty S1 vertebral body. #4 bilateral sacroiliac joint fusions. #5 placement of Proteus combined with Koros bone graft in the bilateral SI joints and posterolateral gutters L5-S1. By Dr. Abernathy on 07/22/2025 -- Appreciate orthopedics -- Bowel regimen to prevent constipation Continue PT OT Monitor CBC Continue IV Solu-Medrol per Ortho Needs rehab placement as able Hypokalemia Replace and monitor Possible diverticulitis Possible mucosal mass on CT scan H/O diverticulitis as per patient --CT:Mucosal thickening in the sigmoid colon, diverticulitis versus mucosal mass. Correlate clinically and consider colonoscopy. --Patient states she had colonoscopy 5 years ago IV Zosyn transition to Augmentin Appreciate surgery input Tolerating regular diet Will need colonoscopy eventually as outpatient Constipation History of IBS Continue bowel regimen Urinary retention History of urinary incontinence Voiding trial prior to discharge versus at rehab facility Hypertension Continue amlodipine Monitor blood pressure GERD Continue pantoprazole DVT prophylaxis SCDs Further anticoagulation per Ortho CODE STATUS Full code Admission and Anticipated Discharge Date Admission Date: July 18, 2025 Subjective Patient is seen and examined at bedside States having lower back pain radiating left lower extremity associated with spasms Family at bedside No other complaints today Review of Systems Review of Systems: All systems reviewed & are unremarkable except as noted in Subjective Physical Exam Physical Exam: Physical Exam: Vitals signs as noted above General Appearance:Moderately built and nourished, no apparent distress Head: normocephalic, Atraumatic Eyes: normal inspection, EOMI Neck: supple, Trachea midline Respiratory/Chest: Normal breath sounds, CTA, No accessory muscle use Cardiovascular: S1, S2, No murmur Abdomen/GI:Soft, Non tender, Bowel sounds present Back:Surgical site in dressing Extremities/Musculoskeletal:normal inspection, no edema Neurologic/Psych:AAOX3, grossly no focal neurological deficits Skin: normal color, warm Results & Data Results & Data Vital Signs (Past 12 Hours) Vital Signs Temp Pulse Resp BP Pulse Ox O2 Del Method 07/24/25 15:25 36.7 C 87 16 145/51 H 93 Room Air 07/24/25 08:03 36.7 C 84 14 129/71 94 Room Air (1) Closed sacral fracture Encounter type: sequela Fracture alignment: minimally displaced Zone of sacrum fracture: zone II of sacrum Qualified Code(s): S32.121S - Minimally displaced Zone II fracture of sacrum, sequela
[2025-07-24] MEDS: KETOROLAC TROMETHAMINE 10 MG TABLET PO ONE (19:42)
[2025-07-24] MEDS: KETOROLAC TROMETHAMINE 15 MG/ML VIAL IV ONE (19:42)
[2025-07-24] MEDS: KETOROLAC TROMETHAMINE 15 MG/ML VIAL ONE (19:45)
[2025-07-25 07:55] LABS: Hematocrit (blood only) 27.4 % (37.0-47.0); Hemoglobin 9.3 g/dl (12.0-16.0)
[2025-07-25 08:09] LABS: Anion Gap 7.0 (3-11); Blood Urea Nitrogen 19.0 mg/dl (6-23); Calcium 9.8 mg/dl (8.6-10.3); Carbon Dioxide 28.0 mmol/L (21-32); Chloride 103.0 mmol/L (98-107); Creatinine Clr Calc Pharmacy 51.9 ml/min; Glucose 150.0 mg/dl (70-99(Fasting)); Potassium 4.0 mmol/L (3.5-5.1); Sodium 138.0 mmol/L (136-145)
[2025-07-25] MEDS: GABAPENTIN 300 MG CAP PO SCH (08:14)
--- NOTE | 2025-07-25 08:25 | Orthopedic Progress Note ---
Date of Service July 25, 2025 Assessment & Plan (1) Multilevel lumbosacral spondylosis with radiculopathy: Plan: At this time continue physical therapy. I have started a course of IV Decadron. I have increased her Neurontin to 300 mg p.o. 3 times daily. She has Toradol for breakthrough pain. Admission and Anticipated Discharge Date Admission Date: July 18, 2025 Subjective Patient's back pain is controlled. Left leg symptoms are still limiting but somewhat improved from yesterday. Physical Exam Physical Exam: On exam she continues to demonstrate full sensation to cold and light touch lower extremities. Motor functions intact lower extremities. She has tenderness palpation of the left sciatic notch. Results & Data Vital Signs (Past 12 Hours) Vital Signs Temp Pulse Resp BP Pulse Ox O2 Del Method 07/25/25 07:00 36.7 C 92 H 18 124/71 95 Room Air Queries Orthopedic Spine Vertebral Fracture Secondary to Osteoporosis: Yes
--- NOTE | 2025-07-25 15:26 | Hospitalist Progress Note ---
Date of Service July 25, 2025 Assessment & Plan (1) Closed sacral fracture: Plan: 80-year-old female with past medical history significant for hypertension, diverticulitis, irritable bowel syndrome, urinary incontinence secondary to cystocele with prolapse who had back surgery done on and was again admitted on 07/11/2025 for postop lumbar epidural hematoma s/p evacuation and was discharged on 07/14/2025 comes back with complaints of back pain and left hip pain. Patient's pain is going for last 2 weeks. Having some difficulty ambulating. Ambulating with a walker. Constipated. Denies any bloody stools. Patient was also having urinary retention status post Carmona catheter in the ER. Pain is more in the left hip region. Denies any fevers. No chest pain or shortness of breath. No nausea. No headache. No neck pain. Vision is okay. No runny nose or sore throat. No cough. Appetite is okay. Hemodynamics are okay. 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 Closed sacral fracture without any history of significant trauma and/or fall Lumbar radiculopathy Postoperative acute blood loss anemia Recent back surgery- initial lumbar surgery on 06/28/2025 and second surgery for hematoma evacuation on 07/11/2025 Presented with increasing pain in the pelvis and left hip and bowel has not been moving for some time, Not being able to ambulate due to pain --MRI:Interval transversely oriented small fluid signal intensity collection at the level of the S1 vertebral body with associated marrow edematous changes and mild anterior translation and subtle focal kyphosis. This is only included on the sagittal series. Findings most worrisome for fracture. Etiology is uncertain. Infectious process is not excluded. Recommend clinical correlation, CT evaluation and contrast-enhanced MRI evaluation. CT pelvis:Fractures of the bilateral sacral ala with a transverse component of the level of S1. --S/P removal of S1 pedicle screws and rods bilaterally. #2 lumbar pelvic fusion with bilateral iliac bolts, larger bilateral S1 screws and longer rods. #3 kyphoplasty S1 vertebral body. #4 bilateral sacroiliac joint fusions. #5 placement of Proteus combined with Koros bone graft in the bilateral SI joints and posterolateral gutters L5-S1. By Dr. Abernathy on 07/22/2025 -- Appreciate orthopedics -- Bowel regimen to prevent constipation Continue PT OT: Recommends acute rehab Monitor CBC Continue IV Solu-Medrol per Ortho Needs rehab placement as able Neurontin increased to 300 mg 3 times a day Also added IV Toradol as needed for breakthrough pain Hypokalemia Replace and monitor Possible diverticulitis Possible mucosal mass on CT scan H/O diverticulitis as per patient --CT:Mucosal thickening in the sigmoid colon, diverticulitis versus mucosal mass. Correlate clinically and consider colonoscopy. --Patient states she had colonoscopy 5 years ago IV Zosyn transition to Augmentin Appreciate surgery input Tolerating regular diet Will need colonoscopy eventually as outpatient Currently denies any abdominal pain Constipation History of IBS Continue bowel regimen Urinary retention History of urinary incontinence Voiding trial prior to discharge versus at rehab facility Hypertension Continue amlodipine Monitor blood pressure GERD Continue pantoprazole DVT prophylaxis SCDs Further anticoagulation per Ortho CODE STATUS Full code Disposition Rehab as able Admission and Anticipated Discharge Date Admission Date: July 18, 2025 Subjective Patient is seen and examined at bedside Back pain slightly improved per patient Had bowel movement this morning Still having some radicular pain to left lower extremity No other complaints Review of Systems Review of Systems: All systems reviewed & are unremarkable except as noted in Subjective Physical Exam Physical Exam: Physical Exam: Vitals signs as noted above General Appearance:Moderately built and nourished, no apparent distress Head: normocephalic, Atraumatic Eyes: normal inspection, EOMI Neck: supple, Trachea midline Respiratory/Chest: Normal breath sounds, CTA, No accessory muscle use Cardiovascular: S1, S2, No murmur Abdomen/GI:Soft, Non tender, Bowel sounds present Back:Surgical site in dressing Extremities/Musculoskeletal:normal inspection, no edema Neurologic/Psych:AAOX3, grossly no focal neurological deficits Skin: normal color, warm Results & Data Results & Data Vital Signs (Past 12 Hours) Vital Signs Temp Pulse Resp BP Pulse Ox O2 Del Method 07/25/25 14:45 36.7 C 102 H 18 144/79 H 95 Room Air 07/25/25 07:00 36.7 C 92 H 18 124/71 95 Room Air Laboratory Results Short CBC 07/25/25 Range/Units 07:22 Hgb 9.3 L (12.0-16.0) g/dl Hct 27.4 L (37.0-47.0) % BMP 07/25/25 07:22 Sodium 138 Potassium 4.0 Chloride 103 Carbon Dioxide 28 BUN 19 Creatinine 0.82 Glucose 150 H Calcium 9.8 (1) Closed sacral fracture Encounter type: sequela Fracture alignment: minimally displaced Zone of sacrum fracture: zone II of sacrum Qualified Code(s): S32.121S - Minimally displaced Zone II fracture of sacrum, sequela
[2025-07-26] MEDS: KETOROLAC TROMETHAMINE 15 MG/ML VIAL IV PRN (09:07)
[2025-07-26] MEDS: dexAMETHasone 8 MG in SYRINGE 0 ML IV SCH (09:07)
--- NOTE | 2025-07-26 09:27 | Orthopedic Progress Note ---
Date of Service July 26, 2025 Assessment & Plan (1) Lumbar radiculopathy: Plan: At this time we will continue physical therapy. Discontinue her Carmona and drain today. Monitor for progress. We are considering rehab versus home health. Admission and Anticipated Discharge Date Admission Date: July 18, 2025 Subjective Patient's left leg symptoms are improving. Still limited but moving much better. She has been ambulating to the bathroom. Underlying physical therapy. Physical Exam Physical Exam: On exam she is in the chair at bedside. No gross tension signs excellent strength testing. Results & Data Vital Signs (Past 12 Hours) Vital Signs Temp Pulse Resp BP Pulse Ox O2 Del Method 07/26/25 07:00 36.7 C 87 16 137/73 97 Room Air Queries Orthopedic Spine Vertebral Fracture Secondary to Osteoporosis: Yes
--- NOTE | 2025-07-26 15:30 | Hospitalist Progress Note ---
Date of Service July 26, 2025 Assessment & Plan (1) Closed sacral fracture: Plan: 80-year-old female with past medical history significant for hypertension, diverticulitis, irritable bowel syndrome, urinary incontinence secondary to cystocele with prolapse who had back surgery done on and was again admitted on 07/11/2025 for postop lumbar epidural hematoma s/p evacuation and was discharged on 07/14/2025 comes back with complaints of back pain and left hip pain. Patient's pain is going for last 2 weeks. Having some difficulty ambulating. Ambulating with a walker. Constipated. Denies any bloody stools. Patient was also having urinary retention status post Carmona catheter in the ER. Pain is more in the left hip region. Denies any fevers. No chest pain or shortness of breath. No nausea. No headache. No neck pain. Vision is okay. No runny nose or sore throat. No cough. Appetite is okay. Hemodynamics are okay. 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 Closed sacral fracture without any history of significant trauma and/or fall Lumbar radiculopathy Postoperative acute blood loss anemia Recent back surgery- initial lumbar surgery on 06/28/2025 and second surgery for hematoma evacuation on 07/11/2025 Presented with increasing pain in the pelvis and left hip and bowel has not been moving for some time, Not being able to ambulate due to pain --MRI:Interval transversely oriented small fluid signal intensity collection at the level of the S1 vertebral body with associated marrow edematous changes and mild anterior translation and subtle focal kyphosis. This is only included on the sagittal series. Findings most worrisome for fracture. Etiology is uncertain. Infectious process is not excluded. Recommend clinical correlation, CT evaluation and contrast-enhanced MRI evaluation. CT pelvis:Fractures of the bilateral sacral ala with a transverse component of the level of S1. --S/P removal of S1 pedicle screws and rods bilaterally. #2 lumbar pelvic fusion with bilateral iliac bolts, larger bilateral S1 screws and longer rods. #3 kyphoplasty S1 vertebral body. #4 bilateral sacroiliac joint fusions. #5 placement of Proteus combined with Koros bone graft in the bilateral SI joints and posterolateral gutters L5-S1. By Dr. Abernathy on 07/22/2025 -- Appreciate orthopedics -- Bowel regimen to prevent constipation Continue PT OT Monitor CBC Continue IV Solu-Medrol per Ortho Needs rehab placement as able Neurontin increased to 300 mg 3 times a day Also added IV Toradol as needed for breakthrough pain Plan to discontinue Carmona, drain today If progressively improves, may not need rehab placement Hypokalemia Replace and monitor Possible diverticulitis Possible mucosal mass on CT scan H/O diverticulitis as per patient --CT:Mucosal thickening in the sigmoid colon, diverticulitis versus mucosal mass. Correlate clinically and consider colonoscopy. --Patient states she had colonoscopy 5 years ago IV Zosyn transition to Augmentin Appreciate surgery input Tolerating regular diet Will need colonoscopy eventually as outpatient Currently denies any abdominal pain Tolerating regular diet Constipation History of IBS Continue bowel regimen Urinary retention History of urinary incontinence Voiding trial today Bladder scan as needed Hypertension Continue amlodipine Monitor blood pressure GERD Continue pantoprazole DVT prophylaxis SCDs Further anticoagulation per Ortho CODE STATUS Full code Disposition To be determined Admission and Anticipated Discharge Date Admission Date: July 18, 2025 Subjective Patient is seen and examined at bedside Back, leg pain slowly improving Was able to do better with physical therapy today No new complaints Denies any chest pain, dyspnea, nausea, vomiting, abdominal pain Review of Systems Review of Systems: All systems reviewed & are unremarkable except as noted in Subjective Physical Exam Physical Exam: Physical Exam: Vitals signs as noted above General Appearance:Moderately built and nourished, no apparent distress Head: normocephalic, Atraumatic Eyes: normal inspection, EOMI Neck: supple, Trachea midline Respiratory/Chest: Normal breath sounds, CTA, No accessory muscle use Cardiovascular: S1, S2, No murmur Abdomen/GI:Soft, Non tender, Bowel sounds present Back:Surgical site in dressing Extremities/Musculoskeletal:normal inspection, no edema Neurologic/Psych:AAOX3, grossly no focal neurological deficits Skin: normal color, warm Results & Data Results & Data Vital Signs (Past 12 Hours) Vital Signs Temp Pulse Resp BP Pulse Ox O2 Del Method 07/26/25 07:00 36.7 C 87 16 137/73 97 Room Air (1) Closed sacral fracture Encounter type: sequela Fracture alignment: minimally displaced Zone of sacrum fracture: zone II of sacrum Qualified Code(s): S32.121S - Minimally displaced Zone II fracture of sacrum, sequela
[2025-07-26 23:51] VITALS: O2SAT 97
[2025-07-27 07:40] VITALS: BP 129/74; PULSE 85; RESP 18; TEMP 97.5
--- NOTE | 2025-07-27 10:34 | Discharge Summary ---
Date of Service July 27, 2025 Admission HPI Per Admitting Provider 80-year-old female with past medical history significant for hypertension, diverticulitis, irritable bowel syndrome, urinary incontinence secondary to cystocele with prolapse who had back surgery done on and was again admitted on 07/11/2025 for postop lumbar epidural hematoma s/p evacuation and was discharged on 07/14/2025 comes back with complaints of back pain and left hip pain. Patient's pain is going for last 2 weeks. Having some difficulty ambulating. Ambulating with a walker. Constipated. Denies any bloody stools. Patient was also having urinary retention status post Carmona catheter in the ER. Pain is more in the left hip region. Denies any fevers. No chest pain or shortness of breath. No nausea. No headache. No neck pain. Vision is okay. No runny nose or sore throat. No cough. Appetite is okay. Hemodynamics are okay. Past medical history. As mentioned above. Past surgical history. Bilateral cataract extraction. Colonoscopy. Foot surgery. Carpal tunnel release of both wrist. History of parathyroidectomy. Removal of adenoma. History of hysterectomy. Social history. No smoking. No alcohol. No drug use. Principal Diagnosis Sacral fracture Discharge Data Allergies Allergy/AdvReac Type Severity Reaction Status Date / Time No Known Allergies Allergy Verified 07/18/25 20:27 Consultations 07/18/25 22:27 ED Decision to Admit Stat 07/19/25 08:00 Consult General Surgery Routine Consult Orthopedic Spine Surgery Routine Procedures Performed Operation Date: 07/22/25 13:45 Actual Procedures p lumbar pelvic fusion with bilateral iliac bolts, larger bilateral S1 screws and longer rods,bilateral sacroiliac joint fusions, placement of Proteus combined with Koros bone graft in the bilateral SI joints and posterolateral gutters L5-S1(Not Applicable) - DO justina Cadena Removal of S1 pedicle screws and rods bilaterally, (Not Applicable) - DO justina Cadena kyphoplasty S1 vertebral body, (Not Applicable) - Del Abernathy DO Ordered Studies 07/18/25 17:30 MR lumbar spine wo con Stat 07/18/25 20:29 CT lumbar spine wo con Stat CT pelvis wo con Stat 07/18/25 20:32 CT hip LT wo con Stat 07/22/25 [place] sacrum Routine Hospital Course (1) Sacral fracture: Patient was admitted in the hospital severe back pain was diagnosed with a sacral fracture and ultimately underwent lumbopelvic fusion for stabilization. She tolerated this well and made reasonable progress throughout hospital stay and was subsequently discharged to rehab. Discharge orders and instructions from the chart for further review. Total Time Total Time Spent Total Time Spent (In Minutes): 20 minutes Discharge Plan Discharge Items Patient Disposition: Transfer Inpatient Rehab Fac Reason For Visit: SACRAL FRACTURE, DIVERTICULITIS Discharge Diagnosis: Sacral fracture Condition on Discharge: Fair Activity: As commented below Non-emergency contact: Primary Care Provider Call non-emergency contact if: you have any medication questions Follow-up/Referrals: Lenny Albert D.O. [Primary Care Provider] - Diet: Regular Addtl Attending Provider Instructions: ACTIVITY RECOMMENDATIONS: SELF CARE INSTRUCTIONS AFTER THORACIC/LUMBAR FUSIONS 1. You may walk to your tolerance. It is good exercise for your legs and back. Expect some back and intermittent leg aches and pains. 2. You may perform "counter-top" level activities (make a sandwich, sandrita with a project, etc.). 3. No bending or lifting of more than 10 pounds or back twisting of any nature (roll like a log when turning in bed). 4. You may ride in a car for 20-30 minutes at a time. No driving until after your first visit with your doctor. 5. Frequent changes of position and restricting sitting to 30 minutes at a time will help limit the amount of back spasms and stiffness you may experience. 6. You may discontinue the use of ambulatory aids (cane, crutches, etc.) once your strength and confidence allow. 7. You may office technology instructor the shower and let water strike your incision when you arrive home at least once daily. Do not take a tub bath, sit in a hot tub or go into a swimming pool until after your first recheck in the office. 8. You may resume previous diet. SPECIAL CARE INSTRUCTIONS: VERY IMPORTANT TO READ AND REVIEW A. Your surgical incision has been closed with a cosmetic suture under the skin that will dissolve in about 6 weeks. In 14 days, you can use a pair of clean scissors and cut the suture that is left outside of the skin at the ends of your incision. 1. The small skin tapes can be removed 7 days after surgery if they have not fallen off by that point. 2. You may keep the wound open to air as much as possible to promote healing after post-op day number 5 unless told otherwise by your doctor. 3. If you think the wound looks like it is becoming infected (redness or worsening drainage) and/or you are experiencing fever, chill or worsening back pain and muscle spasms, contact the office so that we may evaluate you as soon as possible. B. Complications are uncommon, but please contact us if you have any signs or symptoms of: 1. wound infection (fever higher than 102.5 degrees F, redness, separation of wound, drainage, or increasing pain from the incision) 2. blood clots in legs (pain, swelling, redness and warmth in legs) 3. urinary tract infection (fever higher than 102.5 degrees F, burning upon urination or increased frequency of urination) 4. nerve problems (inability to walk on your toes or heels, numbness, loss of bowel or bladder control) 5. any other symptoms that concern you C. Please call the office at if you have any concerns or questions about your operation or recovery. D. No smoking! Smoking drastically decreases the chance of a solid fusion. E. Do not take any anti-inflammatory medications (Indocin, Advil, Motrin, Aspirin, Naprosyn, etc.) as these may inhibit the chance of a solid fusion. Tylenol is okay to take for pain. MANAGING PAIN AFTER SPINAL SURGERY 1. Narcotic medication is intended for short-term use and will be provided for surgical pain. Surgical pain usually lasts for a period of 4-6 weeks. Narcotic medication includes Percocet, Vicodin, Darvocet, Tylenol #3 or Lortab. 2. Longer-term pain is more appropriately treated with non-narcotic medication such as Tylenol ES. 3. Muscle spasm is not appropriately treated with narcotics. Muscle relaxers such as Soma, Flexeril or Skelaxin can be used along with Tylenol ES. 4. Remember that we all live with some "aches and pains". This is not unusual or uncommon after an injury or as we get older. a. Back pain is expected and may include muscle spasms for 4 to 6 weeks after surgery. The pain should gradually improve. If the pain worsens for no apparent reason, please contact the office. b. Intermittent leg pain may also be experienced and should not be concerned about unless it worsens for no apparent reason. If so, please contact the office. 5. We will provide appropriate medication within the normal guidelines of their prescribed use. We will also be very cautious and aware of potential abuse and extended duration of patients' medication needs. a. Pain medications are for your comfort and to assist with sleep and rest so that the tissue can heal. They are not provided in order to return to normal activity and should not be used through the day. To do so or worsening pain at night can result from ongoing tissue damage and development of tolerance to the prescribed medicine. 6. Please allow 2-3 days to process refills. Prescriptions will not be mailed but must be picked up at the office. FOLLOW UP VISIT: Keep your scheduled follow-up appointment. Any questions, please call the office at . Pending Studies at Discharge: No Stand-Alone Forms: [facility] Skilled Items Patient informed of condition?: Yes DNR: No Discharge Level of Care: Acute rehab Communicable Disease: No Discharge Prognosis: Improving Lines: None Urinary Catheter: No Medications and DC Order Prescriptions: New ketorolac 10 mg tablet 10 mg PO Q8H PRN (Reason: pain) 1 Days Qty: 14 0RF gabapentin 300 mg Capsule 300 mg PO TID Qty: 90 0RF Continued baclofen 20 mg tablet 20 mg PO TID PRN (Reason: MUSCLE SPASMS) Patient Comments: PT REPORTS TAKING 1/2 TABLET NEEDED. FULL TABLET MAKES HER SLEEPY naproxen [Naprosyn] 375 mg Tablet 375 mg PO BID PRN (Reason: Pain) ibuprofen 800 mg Tablet 800 mg PO Q8H PRN (Reason: Pain) amlodipine 10 mg Tablet 10 mg PO HS zolpidem [Ambien] 5 mg Tablet 10 mg PO HS PRN (Reason: sleep ) acetaminophen 500 mg Capsule 1,000 mg PO TID PRN (Reason: Pain) dicyclomine 10 mg Capsule 10 mg PO BID PRN (Reason: Abdominal Discomfort) gabapentin 100 mg Tablet 100 mg PO TID omeprazole 20 mg Tablet,Delayed Release (Dr/Ec) 20 mg PO QAM cholecalciferol (vitamin D3) [Vitamin D3] 125 mcg (5,000 unit) Tablet 250 mcg PO DAILY aspirin 81 mg Capsule 81 mg PO [id number] Rx Instructions: MWF tramadol 50 mg tablet 50 mg PO Q6H PRN (Reason: pain, moderate) Qty: 30 0RF oxycodone-acetaminophen [Percocet] 5-325 mg tablet 1 tab PO Q8H Qty: 30 0RF Rx Instructions: Oxycodone for severe pain tramadol for moderate pain cyclobenzaprine 10 mg Tablet 5 mg PO Q8 PRN (Reason: muscle spasm) Qty: 20 0RF oxycodone 5 mg tablet 5 mg PO Q6H PRN (Reason: pain) Qty: 30 0RF Discharge Orders: Discharge Order (Routine); Ordered 07/27/25 Ordered By: Del Abernathy Admission Data Admit Date/Time: 07/18/25 23:07 Attending Provider: Jmaes Farley Admit Provider: Kal Macedo Primary Care Provider: Lenny Albert Other Providers: [facility]; Kal Macedo; Hoang Han; Del Abernathy
--- NOTE | 2025-07-27 10:46 | Hospitalist Progress Note ---
Date of Service July 27, 2025 Assessment & Plan (1) Closed sacral fracture: Plan: 80-year-old female with past medical history significant for hypertension, diverticulitis, irritable bowel syndrome, urinary incontinence secondary to cystocele with prolapse who had back surgery done on and was again admitted on 07/11/2025 for postop lumbar epidural hematoma s/p evacuation and was discharged on 07/14/2025 comes back with complaints of back pain and left hip pain. Patient's pain is going for last 2 weeks. Having some difficulty ambulating. Ambulating with a walker. Constipated. Denies any bloody stools. Patient was also having urinary retention status post Carmona catheter in the ER. Pain is more in the left hip region. Denies any fevers. No chest pain or shortness of breath. No nausea. No headache. No neck pain. Vision is okay. No runny nose or sore throat. No cough. Appetite is okay. Hemodynamics are okay. 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 Closed sacral fracture without any history of significant trauma and/or fall Lumbar radiculopathy Postoperative acute blood loss anemia Recent back surgery- initial lumbar surgery on 06/28/2025 and second surgery for hematoma evacuation on 07/11/2025 Presented with increasing pain in the pelvis and left hip and bowel has not been moving for some time, Not being able to ambulate due to pain --MRI:Interval transversely oriented small fluid signal intensity collection at the level of the S1 vertebral body with associated marrow edematous changes and mild anterior translation and subtle focal kyphosis. This is only included on the sagittal series. Findings most worrisome for fracture. Etiology is uncertain. Infectious process is not excluded. Recommend clinical correlation, CT evaluation and contrast-enhanced MRI evaluation. CT pelvis:Fractures of the bilateral sacral ala with a transverse component of the level of S1. --S/P removal of S1 pedicle screws and rods bilaterally. #2 lumbar pelvic fusion with bilateral iliac bolts, larger bilateral S1 screws and longer rods. #3 kyphoplasty S1 vertebral body. #4 bilateral sacroiliac joint fusions. #5 placement of Proteus combined with Koros bone graft in the bilateral SI joints and posterolateral gutters L5-S1. By Dr. Abernathy on 07/22/2025 -- Appreciate orthopedics -- Bowel regimen to prevent constipation Continue PT OT Monitor CBC Discontinue IV Solu-Medrol Neurontin increased to 300 mg 3 times a day Pain is better controlled Voiding well with no issues after discontinuing Carmona Plan to discharge to rehab facility Hypokalemia Replace and monitor Possible diverticulitis Possible mucosal mass on CT scan H/O diverticulitis as per patient --CT:Mucosal thickening in the sigmoid colon, diverticulitis versus mucosal mass. Correlate clinically and consider colonoscopy. --Patient states she had colonoscopy 5 years ago IV Zosyn transition to Augmentin Appreciate surgery input Tolerating regular diet Advised to get colonoscopy as outpatient Currently denies any abdominal pain Tolerating regular diet Constipation History of IBS Resolved continue bowel regimen Urinary retention History of urinary incontinence Resolved Bladder scan as needed Hypertension Continue amlodipine Monitor blood pressure GERD Continue pantoprazole DVT prophylaxis SCDs Further anticoagulation per Ortho CODE STATUS Full code Disposition Acute rehab Admission and Anticipated Discharge Date Admission Date: July 18, 2025 Subjective Patient is seen and examined at bedside Back, leg pain a lot better today Offers no new complaints Discussed with orthospine today Denies any chest pain, dyspnea, nausea, vomiting, abdominal pain Plan to discharge to rehab facility Review of Systems Review of Systems: All systems reviewed & are unremarkable except as noted in Subjective Physical Exam Physical Exam: Physical Exam: Vitals signs as noted above General Appearance:Moderately built and nourished, no apparent distress Head: normocephalic, Atraumatic Eyes: normal inspection, EOMI Neck: supple, Trachea midline Respiratory/Chest: Normal breath sounds, CTA, No accessory muscle use Cardiovascular: S1, S2, No murmur Abdomen/GI:Soft, Non tender, Bowel sounds present Back:Surgical site in dressing Extremities/Musculoskeletal:normal inspection, no edema Neurologic/Psych:AAOX3, grossly no focal neurological deficits Skin: normal color, warm Results & Data Results & Data Vital Signs (Past 12 Hours) Vital Signs Temp Pulse Resp BP Pulse Ox O2 Del Method 07/27/25 07:39 36.4 C L 85 18 129/74 97 Room Air 07/26/25 23:50 36.3 C L 81 16 123/72 97 Room Air (1) Closed sacral fracture Encounter type: sequela Fracture alignment: minimally displaced Zone of sacrum fracture: zone II of sacrum Qualified Code(s): S32.121S - Minimally displaced Zone II fracture of sacrum, sequela
== END 2025-07-27 14:15 | DRG 448 ==
LOC: ED 17:14 → SUATTDRO 23:07 → 3W 23:07